=== PATIENT | male | born 1950 | race African-American/Black ===

== ENCOUNTER 2016-08-10 09:54 | Emergency (ER) | payer OTHER ==
[~2016-08-10] VITALS: Ht 167.6 cm; Wt 82.6 kg
[~2016-08-10 09:54] MED LIST: 2 INHALERS; ALBU8.5H6 IH; ALEN70TA3 PO; BUDE10.2 IH; CYCL5TAB PO; FINA5TAB4 PO; GABA300S PO; HYDR-2678 PO; HYDR-2679 PO; HYDR-2762 PO; PRED5POW8 MC; TAMS0.4C2 PO; TIOT18CA IH; VALA1000 PO; [UNRECOGNIZED DRUG - OTHER]
[2016-08-10 10:17] VITALS: BP 136/92
[2016-08-10] MEDS ORDERED: HYDR-971 PO (11:04)
--- NOTE | 2016-08-10 11:04 | PHYS DOC ---
Past Medical History Past Medical History: Arthritis, COPD, Diabetes-Type II, GI Bleed, Hepatitis, Liver Disease, Other Additional Past Medical Histor: peptic ulcer, Past Surgical History: Other Additional Past Surgical Histo: eye surgery, left lung repair surgery Alcohol Use: Occasionally Drug Use: Marijuana Adult General Chief Complaint Chief Complaint: PAIN CONTROL HPI HPI Patient is a 66 year old male with history of hypothyroidism, liver disease, GI bleed, COPD, arthritis, who presents today with exacerbation of chronic right wrist pain since yesterday. Patient rates the pain at 10 out of 10 and states the pain is worse when he moves his wrist. He states he has history of calcium buildup in the wrist. Patient states he follows up with orthopedic doctor at [facility] who is planning to do surgery on his wrist but they do not have a date yet. Patient denies any injury. He states he has tried taking Aleve with no relief. Review of Systems Review of Systems Constitutional: Denies fever or chills [] Eyes: Denies change in visual acuity, redness, or eye pain [] Musculoskeletal: Right wrist pain Integument: Denies rash or skin lesions [] Neurologic: Denies headache, focal weakness or sensory changes [] Endocrine: Denies polyuria or polydipsia [] Current Medications Current Medications Current Medications Medications (Trade) Dose Ordered Sig/[place] Start Time Stop Time Status Last Admin Dose Admin Acetaminophen/ Hydrocodone Bitart (Lortab 5/325) 2 tab 1X ONCE 08/10/16 11:00 08/10/16 11:01 UNV Allergies Allergies Allergies Coded Allergies Type Severity Reaction Last Updated Verified No Known Drug Allergies 08/10/16 No Physical Exam Physical Exam Constitutional: Well developed, well nourished, no acute distress, non-toxic appearance. [] HENT: Normocephalic, atraumatic, bilateral external ears normal, oropharynx moist, no oral exudates, nose normal. [] Skin: Warm, dry, no erythema, no rash. [] Back: No tenderness, no CVA tenderness. [] Extremities: Right wrist with no obvious deformity. Patient does the right upper extremity in a sling. Small amount of soft tissue swelling noted on the right dorsal wrist. Limited range of motion to the right wrist due to pain. No scaphoid pain or tenderness of the right wrist. Full range of motion to the right fingers. Adequate radial medial and ulnar sensation to the right hand. +2 right radial pulse. Cap refill less than 2 seconds the right upper extremity. Sensation intact to the right upper extremity. Neurologic: Alert and oriented X 3, normal motor function, normal sensory function, no focal deficits noted. [] Psychologic: Affect normal, judgement normal, mood normal. [] Current Patient Data Vital Signs Vital Signs Date Time Temp Pulse Resp B/P Pulse Ox O2 Delivery O2 Flow Rate FiO2 08/10/16 10:17 98.1 66 18 98 Room Air 98.1 EKG EKG [] Radiology/Procedures Radiology/Procedures [] Course & Med Decision Making Course & Med Decision Making Pertinent Labs and Imaging studies reviewed. (See chart for details) Patient is in the ED with exacerbation of right wrist pain. No known injury. He has an orthopedic doctor at that he follows up with. He took Aleve prior to coming to the ED. Given a prescription of [place] 8 tablet he has an appointment with his PCP in 3 days, I recommended he sees his PCP for this pain as well as his orthopedic doctor. Dragon Disclaimer Dragon Disclaimer This electronic medical record was generated, in whole or in part, using a voice recognition dictation system. Departure Departure Impression: Primary Impression: Chronic pain of right wrist Disposition: 01 HOME, SELF-CARE Condition: STABLE Referrals: KELSY PAUL DO (PCP) Follow-up with your primary care doctor as soon as possible as well as an orthopedic doctor Patient Instructions: Wrist Pain, Coio-go-Cvxx Additional Instructions: You were seen for chronic wrist pain. Please follow-up with your primary care doctor and orthopedic doctor as soon as possible. Scripts Hydrocodone/Apap 5-325 ([place] 5-325 Tablet)1 Each Tablet1-2 Tab PO Q4-6HRS #8 TAB Prov:NATALIASalimaSILKE APRN 08/10/16 SILKE GRAHAM APRN Aug 10, 2016 11:04
[2016-08-10] MEDS ORDERED: HYDROCODONE/APAP 5/325MG TABLET. PO ONE (11:45)
== END 2016-08-10 11:11 | disposition home or self-care (01) ==
LOC: ER 09:54
DX: G89.29 Other chronic pain (principal); M25.531 Pain in right wrist; E03.9 Hypothyroidism, unspecified; J44.9 Chronic obstructive pulmonary disease, unspecified; M19.90 Unspecified osteoarthritis, unspecified site; E11.9 Type 2 diabetes mellitus without complications; F12.10 Cannabis abuse, uncomplicated; Z86.19 Personal history of other infectious and parasitic diseases
CPT/HCPCS: 99283

== ENCOUNTER 2017-02-04 18:40 | Inpatient (IN) | payer OTHER ==
[~2017-02-04] VITALS: Ht 167.6 cm; Wt 80.7 kg
[~2017-02-04 18:40] MED LIST changes: +HYDR-971 PO
[2017-02-04] MEDS ORDERED: fentaNYL PF VIAL 100 MCG/2 ML VIAL IV ONE (19:00)
[2017-02-04] MEDS ORDERED: ONDANSETRON PF 4 MG/2 ML VIAL. IV ONE (19:00)
[2017-02-04] MEDS ORDERED: ACETAMINOPHEN 500 MG TABLET PO ONE (19:00)
[2017-02-04] MEDS ORDERED: IV NORMAL SALINE 1000ML BAG 1,000 ML IV ONE ×2 (19:00→20:15)
[2017-02-04] MEDS ORDERED: ASPIRIN ENTERIC COATED 325 MG TABLET.DR. PO ONE (19:00)
[2017-02-04 19:02] LABS: BASO % 1 % (0-3); EOS % 0 % (0-3); HEMATOCRIT 42.7 % (39.0-53.0); HEMOGLOBIN 14.1 g/dL (13.0-17.5); LYMPH # 0.6 x10^3/uL (1.0-4.8); LYMPH % 14 % (24-48); MEAN CORPUSCULAR HEMOGLOBIN 28 pg (25-35); MEAN CORPUSCULAR HGB CONC 33 g/dL (31-37); MEAN CORPUSCULAR VOLUME 86 fL (79-100); MONO % 11 % (0-9); NEUT % 74 % (31-73); PLATELET COUNT 114 x10^3/uL (140-400); RED BLOOD COUNT 4.98 x10^6/uL (4.30-5.70); RED CELL DISTRIBUTION WIDTH 16.3 % (11.5-14.5)
[2017-02-04 19:03] LABS: POTASSIUM ISTAT 3.8 mmol/L (3.5-5.0)
--- NOTE | 2017-02-04 19:21 | PHYS DOC ---
Past Medical History Past Medical History: Arthritis, COPD, Diabetes-Type II, GI Bleed, Hepatitis, Liver Disease, Other Additional Past Medical Histor: peptic ulcer, Past Surgical History: Other Additional Past Surgical Histo: eye surgery, left lung repair surgery Alcohol Use: Occasionally Drug Use: Marijuana Adult General Chief Complaint Chief Complaint: CHEST PAIN HPI HPI Patient is a 66 year old male presenting to the emergency department via EMS for evaluation of multiple complaints including fevers chills chest pain nausea vomiting diarrhea generalized malaise and fatigue. All the symptoms including chest pain have been going on for approximately one week. Patient says his pain is in his right lower ribs but he does not have pain to palpation on right upper quadrant of abdomen. Patient's temperature is 102 and slightly tachycardic. He was called as a code STEMI in the field however upon arrival EKG was reviewed which did not appear consistent with a STEMI. Patient appears uncomfortable but is nontoxic. Review of Systems Review of Systems Constitutional: + fever, chills [] Eyes: Denies change in visual acuity, redness, or eye pain [] HENT: Denies nasal congestion or sore throat [] Respiratory: Denies cough or shortness of breath [] Cardiovascular: No additional information not addressed in HPI [] GI: Denies abdominal pain, nausea, vomiting, bloody stools or diarrhea [] : Denies dysuria or hematuria [] Musculoskeletal: Denies back pain or joint pain [] Integument: Denies rash or skin lesions [] Neurologic: Denies headache, focal weakness or sensory changes [] Current Medications Current Medications Current Medications Medications (Trade) Dose Ordered Sig/[facility] Start Time Stop Time Status Last Admin Dose Admin Acetaminophen (Tylenol) 1,000 mg 1X ONCE 02/04/17 19:00 02/04/17 19:01 DC 02/04/17 19:08 1,000 MG Aspirin (Ecotrin) 325 mg 1X ONCE 02/04/17 19:00 02/04/17 19:01 DC Fentanyl Citrate (Fentanyl 2ml Vial) 75 mcg 1X ONCE 02/04/17 19:00 02/04/17 19:01 DC 02/04/17 19:08 75 MCG Ondansetron HCl (Zofran) 8 mg 1X ONCE 02/04/17 19:00 02/04/17 19:01 DC 02/04/17 19:08 8 MG Sodium Chloride 1,000 ml @ 1,000 mls/hr 1X ONCE 02/04/17 19:00 02/04/17 19:59 DC 02/04/17 19:08 1,000 MLS/HR Allergies Allergies Allergies Coded Allergies Type Severity Reaction Last Updated Verified No Known Drug Allergies 08/10/16 No Physical Exam Physical Exam Constitutional: Well developed, well nourished, no acute distress, non-toxic appearance. [] HENT: Normocephalic, atraumatic, bilateral external ears normal, oropharynx moist, no oral exudates, nose normal. [] Eyes: PERRLA, EOMI, conjunctiva normal, no discharge. [] Neck: Normal range of motion, no tenderness, supple, no stridor. [] Cardiovascular:Heart rate regular rhythm, no murmur [] Lungs & Thorax: Bilateral breath sounds clear to auscultation. Pain to palpation of right lower ribs. Abdomen: Bowel sounds normal, soft, no tenderness, no masses, no pulsatile masses. [] Skin: Warm, dry, no erythema, no rash. [] Back: No tenderness, no CVA tenderness. [] Extremities: No tenderness, no cyanosis, no clubbing, ROM intact, no edema. [] Neurologic: Alert and oriented X 3, normal motor function, normal sensory function, no focal deficits noted. [] Current Patient Data Vital Signs Vital Signs Date Time Temp Pulse Resp B/P (MAP) Pulse Ox O2 Delivery O2 Flow Rate FiO2 02/04/17 19:29 84 20 134/72 (92) 97 Nasal Cannula 2.0 02/04/17 18:40 102.9 102.9 Lab Values Laboratory Tests Test 02/04/17 18:45 02/04/17 18:48 02/04/17 19:02 White Blood Count 4.0 x10^3/uL (4.0-11.0) Red Blood Count 4.98 x10^6/uL (4.30-5.70) Hemoglobin 14.1 g/dL (13.0-17.5) Hematocrit 42.7 % (39.0-53.0) Mean Corpuscular Volume 86 fL (79-100) Mean Corpuscular Hemoglobin 28 pg (25-35) Mean Corpuscular Hemoglobin Concent 33 g/dL (31-37) Red Cell Distribution Width 16.3 % (11.5-14.5) H Platelet Count 114 x10^3/uL (140-400) L Neutrophils (%) (Auto) 74 % (31-73) H Lymphocytes (%) (Auto) 14 % (24-48) L Monocytes (%) (Auto) 11 % (0-9) H Eosinophils (%) (Auto) 0 % (0-3) Basophils (%) (Auto) 1 % (0-3) Neutrophils # (Auto) 2.9 x10^3uL (1.8-7.7) Lymphocytes # (Auto) 0.6 x10^3/uL (1.0-4.8) L Monocytes # (Auto) 0.4 x10^3/uL (0.0-1.1) Eosinophils # (Auto) 0.0 x10^3/uL (0.0-0.7) Basophils # (Auto) 0.0 x10^3/uL (0.0-0.2) Prothrombin Time 14.6 SEC (11.7-14.0) H Prothrombin Time INR 1.2 (0.8-1.1) H PTT 30 SEC (24-38) D-Dimer (Lisa) 5.69 ug/mlFEU (0.00-0.50) H Sodium Level 131 mmol/L (136-145) L Potassium Level 3.8 mmol/L (3.5-5.1) Chloride Level 99 mmol/L (98-107) Carbon Dioxide Level 23 mmol/L (21-32) Anion Gap 9 (6-14) 19 mmol/L (6-14) H Blood Urea Nitrogen 14 mg/dL (8-26) Creatinine 1.4 mg/dL (0.7-1.3) H Estimated GFR (Cockcroft-Gault) 61.7 BUN/Creatinine Ratio 10 (6-20) Glucose Level 166 mg/dL (70-99) H 165 mg/dL (70-99) H Lactic Acid Level 2.3 mmol/L (0.4-2.0) H Calcium Level 8.2 mg/dL (8.5-10.1) L Magnesium Level 2.2 mg/dL (1.8-2.4) Total Bilirubin 0.8 mg/dL (0.2-1.0) Aspartate Amino Transferase (AST) 53 U/L (15-37) H Alanine Aminotransferase (ALT) 41 U/L (16-63) Alkaline Phosphatase 55 U/L (46-116) Creatine Kinase 329 U/L (39-308) H Troponin I Quantitative < 0.017 ng/mL (0.000-0.055) WT-Dek-T-Type Natriuretic Peptide 52 pg/mL (0-124) Total Protein 7.3 g/dL (6.4-8.2) Albumin 3.2 g/dL (3.4-5.0) L Albumin/Globulin Ratio 0.8 (1.0-1.7) L Lipase 396 U/L (73-393) H Thyroid Stimulating Hormone (TSH) 2.512 uIU/mL (0.358-3.74) Ethyl Alcohol Level < 10 mg/dL (0-10) POC Hemoglobin 14.6 g/dL (14-18) POC Hematocrit 43 % (37-52) POC Sodium 134 mmol/L (135-145) L POC Potassium 3.8 mmol/L (3.5-5.0) POC Chloride 100 mmol/L (98-110) POC Total CO2 20 mmol/L (23-32) L POC Blood Urea Nitrogen 13 mg/dL (8-26) POC Creatinine 1.3 mg/dL (0.5-1.4) POC Ionized Calcium (Rick) 1.09 mmol/L (1.13-1.32) L POC Troponin I 0.02 ng/ml (<0.08) Influenza Type A Antigen Negative (NEGATIVE) Influenza Type B Antigen Negative (NEGATIVE) Laboratory Tests 02/04/17 18:45 Laboratory Tests 02/04/17 18:45 02/04/17 18:48 EKG EKG Sinus rhythm at 97 beats per minutes with leftward axis and apparent right bundle branch block with more widened QRS the prior EKG. No obvious STEMI morphology and normal T waves. Radiology/Procedures Radiology/Procedures [] Course & Med Decision Making Course & Med Decision Making Patient meets sepsis protocol with fever and tachycardia. No identified source of infection at this point however he still has a CT chest and abdomen pending. He received Rocephin in addition to IV fluids. Patient admits that he is feeling much better at this time. Cultures were drawn and lactic acid trend was ordered as well. He will be admitted in guarded condition to the hospitalist service. Dragon Disclaimer Dragon Disclaimer This electronic medical record was generated, in whole or in part, using a voice recognition dictation system. Departure Departure Impression: Primary Impression: Sepsis Additional Impressions: Lactic acid acidosis D-dimer, elevated Disposition: 09 ADMITTED INPATIENT Admitting Physician: Enmanuel Kenny Condition: GUARDED Referrals: KELSY PAUL DO (PCP) Problem Qualifiers Primary Impression: Sepsis Sepsis type: sepsis due to unspecified organism Qualified Codes: A41.9 - Sepsis, unspecified organism FABIOLA GRISSOM DO Feb 04, 2017 19:21
[2017-02-04 19:23] LABS: CALCIUM 8.2 mg/dL (8.5-10.1); CREATININE 1.4 mg/dL (0.7-1.3); GFR 61.7; POTASSIUM 3.8 mmol/L (3.5-5.1)
[2017-02-04 19:24] LABS: INR 1.2 (0.8-1.1); PROTHROMBIN TIME PATIENT 14.6 SEC (11.7-14.0)
[2017-02-04 19:31] LABS: OBC FLU VALID
[2017-02-04 19:36] LABS: ALBUMIN 3.2 g/dL (3.4-5.0); ALBUMIN/GLOBULIN RATIO 0.8 (1.0-1.7); MAGNESIUM 2.2 mg/dL (1.8-2.4); TOTAL BILIRUBIN 0.8 mg/dL (0.2-1.0); TOTAL PROTEIN 7.3 g/dL (6.4-8.2)
[2017-02-04] MEDS ORDERED: IOHEXOL 300 MG/ML 75 ML VIAL IV ONE (20:00)
[2017-02-04] MEDS ORDERED: CONTRAST GIVEN MC PRN (20:00)
[2017-02-04] MEDS ORDERED: fentaNYL PF VIAL 100 MCG/2 ML VIAL IV PRN (20:45)
[2017-02-04] MEDS ORDERED: ONDANSETRON PF 4 MG/2 ML VIAL. IV PRN (20:45)
--- NOTE | 2017-02-04 20:51 | RAD ---
CTA CHEST WITH AND WITHOUT CONTRAST CT STUDY OF THE ABDOMEN AND PELVIS WITH CONTRAST HISTORY: Shortness of air. Elevated d-dimer. Right upper quadrant abdominal pain. TECHNIQUE: Noncontrast axial localizer was performed. After IV infusion of 75 mL of Omnipaque 300, helical CT scanning of the chest was performed using the CT pulmonary embolism protocol. A coronal MIP reconstruction was generated. Subsequently, helical CT scanning of the abdomen and pelvis was performed. No GI contrast was administered. This may decrease the sensitivity to detect GI tract pathology. PQRS compliance Statement One or more of the following individualized dose reduction techniques were utilized for this study: 1. Automated exposure control 2. Adjustment of the mA and/or kV according to patient size 3. Use of iterative reconstruction technique COMPARISON: None available. CHEST CTA: No pulmonary embolism is evident. No thoracic aneurysmal dilatation is seen. Calcified atheromatous disease of the coronary arteries is seen. The heart size is normal and no pericardial effusion is seen. No enlarged thoracic lymphadenopathy is evident. Bilateral emphysema is seen. There is some mild interstitial pulmonary fibrosis within both lung bases. No lung consolidation or lung mass is seen. No pleural effusion or pneumothorax is seen. The proximal bronchial tree is patent. No osteolytic process is seen. IMPRESSION: No pulmonary embolism.. Bilateral emphysema. Mild interstitial pulmonary fibrosis within both lower lung zones. No lung consolidation or lung mass is seen. Calcified atheromatous disease of the coronary arteries. Normal heart size. ABDOMEN AND PELVIS CT: The liver and spleen and pancreas and gallbladder are normal. No extra hepatic biliary ductal dilatation is seen. No adrenal mass is evident. Both kidneys are normal without hydronephrosis or hydroureter. Urinary bladder wall is smooth. No focal aneurysmal dilatation of the abdominal aorta is seen. No enlarged abdominal or pelvic lymphadenopathy is seen. The terminal ileum is unremarkable. No obstructive bowel pattern is seen. The appendix is normal. A small hiatal hernia is evident. No free air or free fluid or mesenteric inflammatory change is seen. No osteolytic process is seen. IMPRESSION: No acute abnormality of the abdomen or pelvis is seen. Electronically signed by: Jose Juan Damon MD (02/04/2017 8:49 PM) [facility]
[2017-02-04] MEDS ORDERED: IV NORMAL SALINE 500ML BAG 500 ML IV ONE (21:00)
[2017-02-04] MEDS ORDERED: FOLI1TAB16 PO (21:57)
[2017-02-04] MEDS ORDERED: CYAN10005 PO (21:57)
[2017-02-04 22:43] LABS: BILIRUBIN,URINE NEGATIVE (NEG); GLUCOSE,URINE NEGATIVE (NEG); NITRITE,URINE NEGATIVE (NEG); PH,URINE 5.5; PROTEIN,URINE NEGATIVE (NEG-TRACE); UROBILINOGEN,URINE 0.2 mg/dL (0.2 mg/dL)
[2017-02-04 22:51] LABS: BACTERIA,URINE 0 /HPF (0-FEW); RBC,URINE 0 /HPF (0-2); SQUAMOUS EPITHELIAL CELL,UR OCC /LPF; WBC,URINE 0 /HPF (0-4)
[2017-02-04 22:56] LABS: BARBITURATES NEG (NEG); BENZODIAZEPINES NEG (NEG); CANNABINOIDS NEG (NEG); COCAINE NEG (NEG); METHADONE NEG (NEG); OPIATES NEG (NEG); PHENCYCLIDINE NEG (NEG)
[2017-02-04 23:57] VITALS: BP 105/61
[2017-02-05] MEDS: ACETAMINOPHEN 325 MG TABLET. PO PRN ×3 (03:15→20:21)
[2017-02-05 03:16] VITALS: BP 132/67
--- NOTE | 2017-02-05 05:06 | RAD ---
CT abdomen and pelvis with contrast: Reason for examination: Right upper quadrant abdominal pain with shortness of breath and elevated d-dimer. Helical images were obtained through the abdomen and pelvis with intravenous administration of 75 cc Omnipaque 300. Reconstruction was performed in sagittal and coronal planes. Exposure: One or more of the following individualized dose reduction techniques were utilized for this examination: 1. Automated exposure control 2. Adjustment of the mA and/or kV according to patient size 3. Use of iterative reconstruction technique. The lung bases are clear. The heart size is normal with no pericardial effusion seen. No abnormality seen at the liver, spleen, gallbladder, pancreas or adrenal glands. The abdominal aorta and inferior vena cava show no acute abnormalities but there is some arteriosclerotic vascular calcification in the aorta. The kidneys show no renal masses, renal calculi, hydronephrosis or evidence of obstructive uropathy. There is a small hiatal hernia. The small intestinal tract shows no abnormally dilated loops of bowel or thickened bowel hernandez. There is no evidence of diverticulosis or diverticulitis. The appendix is not definitely identified. No abnormality seen at the bladder, prostate gland or seminal vesicles. There are degenerative changes in the spine but no acute bony abnormality is seen. IMPRESSION: Small hiatal hernia. Degenerative changes in the lumbar spine. No other focal abnormalities evident in the abdomen or pelvis. Electronically signed by: Gaby Babcock MD (02/05/2017 5:01 AM) [facility]
[2017-02-05 06:30] LABS: BASO % 1 % (0-3); EOS % 0 % (0-3); LYMPH # 0.3 x10^3/uL (1.0-4.8); LYMPH % 5 % (24-48); MEAN CORPUSCULAR HEMOGLOBIN 28 pg (25-35); MEAN CORPUSCULAR HGB CONC 33 g/dL (31-37); MEAN CORPUSCULAR VOLUME 87 fL (79-100); MONO % 5 % (0-9); NEUT % 89 % (31-73); PLATELET COUNT 101 x10^3/uL (140-400); RED BLOOD COUNT 4.62 x10^6/uL (4.30-5.70); RED CELL DISTRIBUTION WIDTH 16.3 % (11.5-14.5); WHITE BLOOD COUNT 6.1 x10^3/uL (4.0-11.0)
[2017-02-05 06:44] LABS: CALCIUM 8.1 mg/dL (8.5-10.1); CREATININE 1.2 mg/dL (0.7-1.3); GFR 73.8; POTASSIUM 4.2 mmol/L (3.5-5.1)
[2017-02-05 06:48] VITALS: BP 116/66
--- NOTE | 2017-02-05 06:50 | EKG ---
[facility] [address] [place] [address] Test Date: 2017-02-04 Test Time: 18:39:12 Pat Name: TANYA JOHNSON Department: Room: [facility] 1 Gender: M Education Rn: : 1950 Requested By: FABIOLA GRISSOM Order Number: [id number] Reading MD: Scott Desai Measurements Intervals [place] Rate: 97 P: 52 SD: 136 QRS: -83 QRSD: 124 T: 58 QT: 348 QTc: 446 Interpretive Statements SINUS RHYTHM PAC RBBB LAFB Electronically Signed On 02-25-2017 9:14:53 CDT by Scott Desai
[2017-02-05 07:43] LABS: PLT ESTIMATE DECREASED (ADEQUATE)
--- NOTE | 2017-02-05 08:21 | RAD ---
PORTABLE CHEST 1V Clinical Indication: CP Comparison: Chest radiograph dated 11/11/2014 Findings: Normal lung volume. No focal consolidations. Stable pulmonary vasculature. No pleural effusion or pneumothorax. The cardiomediastinal silhouette is normal. Stable tortuous thoracic aorta. No acute osseous abnormality. Stable moderate right and mild left glenohumeral joint arthrosis. IMPRESSION: No acute cardiopulmonary process.
[2017-02-05] MEDS ORDERED: INFLUENZA VAX SCREEN BY RX. MC ONE (09:00)
[2017-02-05] MEDS ORDERED: FLU VACC QS2017-18 (36MOS+)/PF 0.5 ML SYRINGE. VAX IM ONE (09:00)
[2017-02-05 11:04] VITALS: BP 115/68
--- NOTE | 2017-02-05 13:30 | HP ---
ADMIT DATE: 02/05/17 CHIEF COMPLAINT: Right upper quadrant pain, shortness of breath. HISTORY OF PRESENT ILLNESS: The patient is a 66-year-old -Chinese gentleman with multiple medical issues including hepatitis, COPD, diabetes who presented to the Emergency Room with sudden onset abdominal pain, so severe in his right upper quadrant that he had difficulty breathing. He also complained of fevers, chills, mild nausea without any vomiting and general malaise and fatigue. All in all, symptoms actually have been going on for about a week. In the Emergency Room, he was found with a fever of 102, tachycardia, however, his CTA was negative for pulmonary embolism, CT of the abdomen and pelvis likewise were negative for any findings, especially in the right upper quadrant. PAST MEDICAL HISTORY: COPD, hepatitis, GI bleed, diabetes mellitus, osteoarthritis. PAST SURGICAL HISTORY: He is status post left lung surgery. FAMILY HISTORY: Positive for diabetes, hypertension in siblings and mother. SOCIAL HISTORY: He lives by himself, has a daily caregiver for the past 17 years. Smokes tobacco and marijuana regularly. Drinks Coors Light and occasionally sip of hard liquor. ALLERGIES: No known drug allergies. MEDICATIONS: MAR reconciled with home medications. REVIEW OF SYSTEMS: His pain currently has resolved. He denies any ongoing shortness of breath. Feels a little better overall, although not quite back to normal. Rest of organ system review does not yield any findings. PHYSICAL EXAMINATION: VITAL SIGNS: Currently show blood pressure of 115/68, heart rate of 68, respiratory rate at 20. He is afebrile. GENERAL: This is a well-nourished 66-year-old -Chinese gentleman, alert and oriented, in no acute distress. HEENT: Shows no scleral icterus. Oral mucosa is dry. Dentition is poor. NECK: Supple, without any lymphadenopathy. LUNGS: Clear. HEART: Has regular rate and rhythm without any murmurs. ABDOMEN: Has positive bowel sounds, soft, nontender. EXTREMITIES: Show no edema, no clubbing, no cyanosis. SKIN: Warm, soft and dry without any rash. LABORATORY DATA: CBC with a WBC of 6.1, hemoglobin 13.0, platelets of 101, which is about his baseline. Differential with 85% segmented neutrophils and 8% bands. Chemistries with a BUN and creatinine of 13 and 1.2, normal electrolytes, glucose at 113. LFTs obtained in the Emergency Room show an AST of 53, rest was normal. CK 329. Lactate at 2.3. Initial sodium of 131, now corrected to 136. IMAGING: CTA without any sign of pulmonary embolism. Noted are bilateral emphysematous changes with mild interstitial pulmonary fibrosis within both lower lung zones. No lung consolidation or lung mass is seen. CT abdomen and pelvis shows small hiatal hernia, degenerative changes in the lumbar spine, no focal abnormalities evident in the abdomen or pelvis. ASSESSMENT AND PLAN: The patient is a 66-year-old gentleman presenting with suspicion for sepsis. Symptoms have mainly resolved. Blood cultures are pending at this time. He has been started empirically on ceftriaxone. We will continue for now, monitor his symptoms. His vital signs currently are completely stable including pulse rate and blood pressure. We will continue to monitor. Home medications will be continued. He is a diabetic who is diet controlled. We will obtain hemoglobin A1c and insulin sliding scale as needed. He does have a history of COPD. We will continue his inhalers as needed as well as supplemental O2. JESUSITA BARBER MD DR: DAYA/terri JOB#: [id number] / [id number]
[2017-02-05 14:53] VITALS: BP 105/60
[2017-02-05 19:20] VITALS: BP 142/75
[2017-02-05 23:25] VITALS: BP 114/57
[2017-02-06 03:30] VITALS: BP 108/47
[2017-02-06] MEDS: ACETAMINOPHEN 325 MG TABLET. PO PRN (05:06)
[2017-02-06 06:39] LABS: BASO % 1 % (0-3); EOS % 1 % (0-3); HEMATOCRIT 39.1 % (39.0-53.0); HEMOGLOBIN 12.7 g/dL (13.0-17.5); LYMPH # 0.5 x10^3/uL (1.0-4.8); LYMPH % 18 % (24-48); MEAN CORPUSCULAR HEMOGLOBIN 28 pg (25-35); MEAN CORPUSCULAR HGB CONC 33 g/dL (31-37); MEAN CORPUSCULAR VOLUME 86 fL (79-100); MONO % 10 % (0-9); NEUT % 71 % (31-73); PLATELET COUNT 97 x10^3/uL (140-400); RED BLOOD COUNT 4.55 x10^6/uL (4.30-5.70); WHITE BLOOD COUNT 2.6 x10^3/uL (4.0-11.0)
[2017-02-06 07:00] VITALS: BP 103/60
[2017-02-06 07:10] LABS: ALBUMIN 2.9 g/dL (3.4-5.0); ALBUMIN/GLOBULIN RATIO 0.8 (1.0-1.7); CALCIUM 8.3 mg/dL (8.5-10.1); POTASSIUM 3.8 mmol/L (3.5-5.1); TOTAL BILIRUBIN 0.5 mg/dL (0.2-1.0); TOTAL PROTEIN 6.5 g/dL (6.4-8.2)
--- NOTE | 2017-02-06 09:55 | PDOC ---
PROGRESS NOTES Chief Complaint Chief Complaint ASSESSMENT AND PLAN: 1. ?sepsis: fevers persisting, but exam nonfocal; VSS. blood cult NGTD. empiric ceftriax 2. Leukopenia with severe lymphopenia: poss 2/2 viral syndrome. monitor closely 3. DM2: diet controlled at home, well controlled on ISS. HgbA1c pending 4. COPD: nebs PRN, suppl O2 5. Hand pain: trial gabapentin History of Present Illness History of Present Illness main c/o is pain in hands, tim R, chronic since surgeries. PCP stopped decades- long PO narcotics last month Vitals Vitals Vital Signs Date Time Temp Pulse Resp B/P (MAP) Pulse Ox O2 Delivery O2 Flow Rate FiO2 02/06/17 08:00 Nasal Cannula 2.0 02/06/17 07:00 97.8 79 18 103/60 (74) 98 97.8 Physical Exam General: Alert, Oriented X3, Cooperative, No acute distress Heart: Regular rate Lungs: Clear Abdomen: Normal bowel sounds, No tenderness Extremities: No clubbing, Other (pain in dorsi of hands/wrists w/o decrease in ROM) Skin: No rashes Labs LABS Laboratory Tests Test 02/06/17 06:05 White Blood Count 2.6 x10^3/uL (4.0-11.0) Red Blood Count 4.55 x10^6/uL (4.30-5.70) Hemoglobin 12.7 g/dL (13.0-17.5) Hematocrit 39.1 % (39.0-53.0) Mean Corpuscular Volume 86 fL (79-100) Mean Corpuscular Hemoglobin 28 pg (25-35) Mean Corpuscular Hemoglobin Concent 33 g/dL (31-37) Red Cell Distribution Width 16.0 % (11.5-14.5) Platelet Count 97 x10^3/uL (140-400) Neutrophils (%) (Auto) 71 % (31-73) Lymphocytes (%) (Auto) 18 % (24-48) Monocytes (%) (Auto) 10 % (0-9) Eosinophils (%) (Auto) 1 % (0-3) Basophils (%) (Auto) 1 % (0-3) Neutrophils # (Auto) 1.8 x10^3uL (1.8-7.7) Lymphocytes # (Auto) 0.5 x10^3/uL (1.0-4.8) Monocytes # (Auto) 0.3 x10^3/uL (0.0-1.1) Eosinophils # (Auto) 0.0 x10^3/uL (0.0-0.7) Basophils # (Auto) 0.0 x10^3/uL (0.0-0.2) Sodium Level 138 mmol/L (136-145) Potassium Level 3.8 mmol/L (3.5-5.1) Chloride Level 104 mmol/L (98-107) Carbon Dioxide Level 25 mmol/L (21-32) Anion Gap 9 (6-14) Blood Urea Nitrogen 10 mg/dL (8-26) Creatinine 1.0 mg/dL (0.7-1.3) Estimated GFR (Cockcroft-Gault) 91.0 BUN/Creatinine Ratio 10 (6-20) Glucose Level 102 mg/dL (70-99) Calcium Level 8.3 mg/dL (8.5-10.1) Total Bilirubin 0.5 mg/dL (0.2-1.0) Aspartate Amino Transf (AST/SGOT) 53 U/L (15-37) Alanine Aminotransferase (ALT/SGPT) 35 U/L (16-63) Alkaline Phosphatase 50 U/L (46-116) Creatine Kinase 385 U/L (39-308) Total Protein 6.5 g/dL (6.4-8.2) Albumin 2.9 g/dL (3.4-5.0) Albumin/Globulin Ratio 0.8 (1.0-1.7) JESUSITA BARBER MD Feb 06, 2017 09:55
[2017-02-06] MEDS ORDERED: GABAPENTIN 300 MG CAPSULE. PO SCH (10:00)
[2017-02-06] MEDS ORDERED: CYCLOBENZAPRINE 10 MG TABLET. PO PRN (10:15)
[2017-02-06] MEDS: TAMSULOSIN 0.4 MG CAP.ER.24H. PO SCH (10:44)
[2017-02-06] MEDS: CYANOCOBALAMIN (VITAMIN B-12) 1,000 MCG TABLET. PO SCH (10:44)
[2017-02-06] MEDS: FOLIC ACID 1 MG TABLET. PO SCH (10:44)
[2017-02-06] MEDS: FINASTERIDE 5 MG TABLET. PO SCH (10:45)
[2017-02-06] MEDS: HYDROcodone/APAP 7.5/325MG 1 TAB TABLET PO PRN ×2 (10:46→20:41)
[2017-02-06 10:55] VITALS: BP 99/53
[2017-02-06] MEDS: IPRATRPIUM/ALBUTEROL 0.5/2.5MG 3 ML NEBU. NEB SCH ×3 (11:15→19:32)
[2017-02-06] MEDS: BUDESONIDE 0.5 MG/2 ML NEBU. NEB SCH ×2 (11:15→19:32)
[2017-02-06] MEDS ORDERED: ALBUTEROL SULFATE 2.5 MG/3 ML NEBU. NEB SCH (12:00)
[2017-02-06] MEDS ORDERED: ALBUTEROL SULFATE 8GM INHALER. IH SCH (13:00)
[2017-02-06] MEDS: GABAPENTIN 100 MG CAPSULE. PO SCH ×2 (14:00→20:40)
[2017-02-06 15:26] VITALS: BP 123/63
[2017-02-06 19:24] VITALS: BP 138/73
[2017-02-06] MEDS ORDERED: NON FORMULARY ITEM (Budesonide/Formoterol Fumarate (Symbicort 160-4.5 Mcg Inhaler) 10.2 GM IH SCH (21:00)
[2017-02-06 22:22] VITALS: BP 116/62
[2017-02-07] MEDS: HYDROcodone/APAP 7.5/325MG 1 TAB TABLET PO PRN ×3 (02:50→18:32)
[2017-02-07 02:51] VITALS: BP 126/68
[2017-02-07 07:00] VITALS: BP 123/76
[2017-02-07] MEDS: BUDESONIDE 0.5 MG/2 ML NEBU. NEB SCH ×2 (07:55→20:11)
[2017-02-07] MEDS: IPRATRPIUM/ALBUTEROL 0.5/2.5MG 3 ML NEBU. NEB SCH ×4 (07:55→20:11)
[2017-02-07] MEDS: GABAPENTIN 100 MG CAPSULE. PO SCH ×3 (08:49→20:49)
[2017-02-07] MEDS: TAMSULOSIN 0.4 MG CAP.ER.24H. PO SCH (08:49)
[2017-02-07] MEDS: FOLIC ACID 1 MG TABLET. PO SCH (08:49)
[2017-02-07] MEDS: FINASTERIDE 5 MG TABLET. PO SCH (08:49)
[2017-02-07] MEDS: CYANOCOBALAMIN (VITAMIN B-12) 1,000 MCG TABLET. PO SCH (08:49)
[2017-02-07] MEDS ORDERED: NON FORMULARY ITEM (Tiotropium Bromide (Spiriva) 1 CAP) IH SCH (09:00)
[2017-02-07 11:00] VITALS: BP 108/67
[2017-02-07 15:12] VITALS: BP 98/57
[2017-02-07 19:21] VITALS: BP 130/66
[2017-02-07 23:43] VITALS: BP 127/79
[2017-02-08 03:00] VITALS: BP 126/63
[2017-02-08 07:00] VITALS: BP 113/70
[2017-02-08] MEDS: CYANOCOBALAMIN (VITAMIN B-12) 1,000 MCG TABLET. PO SCH (07:34)
[2017-02-08] MEDS: GABAPENTIN 100 MG CAPSULE. PO SCH ×3 (07:34→21:13)
[2017-02-08] MEDS: FINASTERIDE 5 MG TABLET. PO SCH (07:34)
[2017-02-08] MEDS: FOLIC ACID 1 MG TABLET. PO SCH (07:35)
[2017-02-08] MEDS: TAMSULOSIN 0.4 MG CAP.ER.24H. PO SCH (07:35)
[2017-02-08] MEDS: HYDROcodone/APAP 7.5/325MG 1 TAB TABLET PO PRN ×2 (07:35→17:32)
[2017-02-08] MEDS: BUDESONIDE 0.5 MG/2 ML NEBU. NEB SCH ×2 (08:34→19:49)
[2017-02-08] MEDS: IPRATRPIUM/ALBUTEROL 0.5/2.5MG 3 ML NEBU. NEB SCH ×4 (08:34→19:49)
--- NOTE | 2017-02-08 10:06 | PDOC ---
PROGRESS NOTES Chief Complaint Chief Complaint ASSESSMENT AND PLAN: 1. ?sepsis: fevers resolved, exam nonfocal; VSS. blood cult NGTD. empiric ceftriax. 2. Leukopenia with severe lymphopenia: poss 2/2 viral syndrome. monitor closely 3. DM2: diet controlled at home, well controlled on ISS. HgbA1c pending 4. COPD: nebs PRN, suppl O2 5. Hand pain: trial gabapentin 6. RUQ pain: improved. US RUQ pending History of Present Illness History of Present Illness feels much improved today. abd pain almost resolved. no fevers or chills Vitals Vitals Vital Signs Date Time Temp Pulse Resp B/P (MAP) Pulse Ox O2 Delivery O2 Flow Rate FiO2 02/08/17 08:50 Room Air 02/08/17 08:37 100 2.0 02/08/17 07:00 97.9 62 16 113/70 (84) 97.9 Physical Exam General: Alert, Oriented X3, Cooperative, No acute distress Heart: Regular rate Lungs: Clear Abdomen: Normal bowel sounds, No tenderness Extremities: No clubbing, Other (pain in dorsi of hands/wrists w/o decrease in ROM) Skin: No rashes Labs LABS Laboratory Tests Test 02/07/17 11:46 02/07/17 16:49 Glucose (Fingerstick) 165 mg/dL (70-99) 136 mg/dL (70-99) JESUSITA BARBER MD Feb 08, 2017 10:06
[2017-02-08 10:55] LABS: BASO % 1 % (0-3); EOS % 7 % (0-3); HEMATOCRIT 40.2 % (39.0-53.0); LYMPH # 1.1 x10^3/uL (1.0-4.8); LYMPH % 31 % (24-48); MEAN CORPUSCULAR HEMOGLOBIN 28 pg (25-35); MEAN CORPUSCULAR HGB CONC 32 g/dL (31-37); MEAN CORPUSCULAR VOLUME 87 fL (79-100); MONO % 8 % (0-9); NEUT % 53 % (31-73); PLATELET COUNT 133 x10^3/uL (140-400); RED BLOOD COUNT 4.64 x10^6/uL (4.30-5.70); RED CELL DISTRIBUTION WIDTH 16.2 % (11.5-14.5); WHITE BLOOD COUNT 3.5 x10^3/uL (4.0-11.0)
[2017-02-08 11:00] VITALS: BP 117/62
[2017-02-08 11:04] LABS: POTASSIUM 3.9 mmol/L (3.5-5.1)
--- NOTE | 2017-02-08 14:38 | RAD ---
Indication right upper quadrant pain. Grayscale imaging was performed. Examination was targeted to the right upper quadrant. Note is made of a CT examination of the abdomen and pelvis 4 days ago and a prior limited ultrasound examination 04/05/2014. There is increased attenuation of the ultrasound beam by the liver compatible with fatty infiltration. A focal mass lesion is not seen in the visualized liver. The visualized inferior vena cava appears normal. The gallbladder appears unremarkable. The common bile duct diameter of approximately 6 mm is within normal limits. The right kidney appears normal. The visualized pancreas appeared unremarkable although the distal body and tail were partially obscured. IMPRESSION: Fatty infiltration of the liver. No additional finding seen in the right upper quadrant
[2017-02-08 15:00] VITALS: BP 125/69
[2017-02-08] MEDS ORDERED: GABA-585 PO (16:23)
--- NOTE | 2017-02-08 16:41 | DS ---
DATE OF DISCHARGE: 02/08/2017 CHIEF COMPLAINT: Fevers, chills, malaise. HOSPITAL COURSE: The patient is a 66-year-old gentleman who presented with diffuse symptoms suspicious for infection, question sepsis. He was therefore admitted and started on empiric antibiotics after x-ray, urine and blood cultures were obtained. None of these actually showed any focal infection. A CT was likewise nondiagnostic. He, however, improved after experiencing a brief bout of leukopenia with lymphopenia. He was there suspected of having a viral syndrome. He recovered spontaneously. A couple of days into his hospitalization, he started experiencing right upper quadrant pain, which prompted right upper quadrant ultrasound, which did not show any acute pathology, only fatty liver. The patient was therefore deemed stable on the for discharge to home. The patient complained of hand pain, especially in the dorsi of both hands, possibly related to a distant history of surgery. He was therefore started on gabapentin for trial and seemed to be tolerating medication well. Further increase in doses may be required on outpatient basis. PHYSICAL EXAMINATION: VITAL SIGNS: Blood pressure of 113/70, heart rate of 62, respiratory rate of 16. He is afebrile. GENERAL: This is a well-nourished 66-year-old gentleman, alert and oriented, in no acute distress. LUNGS: Clear. HEART: Regular rate and rhythm. ABDOMEN: Has positive bowel sounds, soft, nontender. EXTREMITIES: Show no edema. DISCHARGE DATE: 02/08/2017 DISCHARGE DIAGNOSIS: Viral syndrome. DISCHARGE DISPOSITION: To home. DISCHARGE CONDITION: Improved. DISCHARGE MEDICATIONS: Please refer to MAR. DISCHARGE INSTRUCTIONS: The patient will follow up with PCP. JESUSITA BARBER MD DR: UR/nts JOB#: [id number] / [id number] KELSY Bhagat
[2017-02-08 19:25] VITALS: BP 134/69
[2017-02-08 23:30] VITALS: BP 142/67
[2017-02-09 03:35] VITALS: BP 119/62
[2017-02-09 07:20] VITALS: BP 109/62
[2017-02-09] MEDS: FINASTERIDE 5 MG TABLET. PO SCH (08:05)
[2017-02-09] MEDS: IPRATRPIUM/ALBUTEROL 0.5/2.5MG 3 ML NEBU. NEB SCH (08:05)
[2017-02-09] MEDS: BUDESONIDE 0.5 MG/2 ML NEBU. NEB SCH (08:05)
[2017-02-09] MEDS: FOLIC ACID 1 MG TABLET. PO SCH (08:06)
[2017-02-09] MEDS: HYDROcodone/APAP 7.5/325MG 1 TAB TABLET PO PRN (08:06)
[2017-02-09] MEDS: GABAPENTIN 100 MG CAPSULE. PO SCH (08:06)
[2017-02-09] MEDS: CYANOCOBALAMIN (VITAMIN B-12) 1,000 MCG TABLET. PO SCH (08:06)
[2017-02-09] MEDS: TAMSULOSIN 0.4 MG CAP.ER.24H. PO SCH (08:06)
== END 2017-02-09 09:45 | disposition home or self-care (01) | DRG 871 ==
LOC: ER 18:40 → 6 SOUTH 19:34
PROVIDERS: ADMIT Internal Medicine; ATTEND Internal Medicine
DX: A41.89 Other specified sepsis (principal); N17.0 Acute kidney failure with tubular necrosis; K76.0 Fatty (change of) liver, not elsewhere classified; D72.810 Lymphocytopenia; E11.9 Type 2 diabetes mellitus without complications; J44.9 Chronic obstructive pulmonary disease, unspecified; F12.90 Cannabis use, unspecified, uncomplicated; B34.9 Viral infection, unspecified; Z82.49 Family history of ischemic heart disease and other diseases of the circulatory system; Z87.11 Personal history of peptic ulcer disease; Z83.3 Family history of diabetes mellitus
CPT/HCPCS: 36415; 71010; 71275; 74177; 76705; 80047; 80048; 80053; 80307; 81001; 82550; 82962; 83036; 83605; 83690; 83735; 83880; 84443; 84484; 85007; 85025; 85379; 85610; 85730; 87040; 87804; 90686; 93005; 94250; 94640; 94760; 96374; 96375; G0480; J0696; J2405; J3010; J7030; J7040; J7620; J7626; Q9967; 99285-25; G0479

== ENCOUNTER 2017-02-21 10:40 | Emergency (ER) | payer OTHER ==
[~2017-02-21] VITALS: Ht 167.6 cm; Wt 82.6 kg
[~2017-02-21 10:40] MED LIST changes: +CYAN10005 PO; +FOLI1TAB16 PO; +GABA-585 PO
[2017-02-21 11:08] VITALS: BP 126/79
[2017-02-21] MEDS ORDERED: CYCLOBENZAPRINE 10 MG TABLET. PO ONE (11:15)
[2017-02-21] MEDS ORDERED: HYDROcodone/APAP 5/325MG 1 TAB TABLET PO ONE (11:15)
--- NOTE | 2017-02-21 11:47 | RAD ---
AP pelvis to include AP and lateral right hip radiographs 02/21/2017 Clinical history: Right lateral and posterior hip pain for 4 days. An AP digital radiograph of the pelvis was obtained. AP and lateral radiographs of the right hip were obtained. No pelvic bone fracture is seen. Both hips are intact. Specifically no fracture or dislocation of the right hip is seen. Calcifications are seen within the pelvis consistent with phleboliths. Moderate degenerative changes are seen involving the mid and lower lobe lumbar spine. Mild degenerative changes are seen involving both hips. Atherosclerotic calcification of the abdominal aorta and its branches is noted. Impression: Degenerative changes are seen as outlined above. No acute osseous abnormality is noted.
--- NOTE | 2017-02-21 11:53 | RAD ---
Three-view lumbar spine radiographs 02/21/2017 Clinical history: Low back pain for 4 days. AP and 2 lateral digital radiographs of the lumbar spine were obtained. Minimal S shaped curvature of the thoracolumbar spine is seen. Degenerative changes are seen involving the lower thoracic and throughout the lumbar disc spaces consisting of varying degrees of disc space narrowing, vertebral endplate sclerosis and mild to moderate anterolateral vertebral body osteophyte formation. No fracture or subluxation of the lumbar vertebrae seen. Degenerative changes are seen involving the facet joints of the mid and lower lumbar spine. Atherosclerotic calcification of the abdominal aorta and its branches is noted. Impression: Degenerative changes are seen involving the lumbar spine as outlined above. No acute osseous abnormality is seen.
[2017-02-21] MEDS ORDERED: CYCL10TA2 PO (12:19)
[2017-02-21] MEDS ORDERED: HYDR-79 PO (12:19)
--- NOTE | 2017-02-21 12:19 | PHYS DOC ---
Past Medical History Past Medical History: Arthritis, COPD, Diabetes-Type II, GI Bleed, Hepatitis, Liver Disease, Other Additional Past Medical Histor: peptic ulcer, Past Surgical History: Other Additional Past Surgical Histo: eye surgery, left lung repair surgery Alcohol Use: Occasionally Drug Use: Marijuana Adult General Chief Complaint Chief Complaint: HIP PAIN HPI HPI Patient is a 66 year old male with history of arthritis, COPD, diabetes type 2 , GI bleed, who presents today with moderate right low back pain radiating into the right hip into the right lower extremity that began 3 days ago. She denies any trauma. Denies any numbness or tingling to bilateral lower extremities, denies any loss of bladder function. He states he has history of back pain with sciatica and follows up with his PCP at [facility], [place]. Review of Systems Review of Systems Constitutional: Denies fever or chills [] GI: Denies abdominal pain, nausea, vomiting, bloody stools or diarrhea [] : Denies dysuria or hematuria [] Musculoskeletal: Right low back pain radiating into the right hip into the right lower extremity Integument: Denies rash or skin lesions [] Neurologic: Denies headache, focal weakness or sensory changes [] Current Medications Current Medications Current Medications Medications (Trade) Dose Ordered Sig/Omaira Start Time Stop Time Status Last Admin Dose Admin Acetaminophen/ Hydrocodone Bitart (Lortab 5/325) 2 tab 1X ONCE 02/21/17 11:15 02/21/17 11:16 DC 02/21/17 11:46 2 TAB Cyclobenzaprine HCl (Flexeril) 10 mg 1X ONCE 02/21/17 11:15 02/21/17 11:16 DC 02/21/17 11:45 10 MG Allergies Allergies Allergies Coded Allergies Type Severity Reaction Last Updated Verified No Known Drug Allergies 08/10/16 No Physical Exam Physical Exam Constitutional: Well developed, well nourished, no acute distress, non-toxic appearance. [] Abdomen: Bowel sounds normal, soft, no tenderness, no masses, no pulsatile masses. [] Skin: Warm, dry, no erythema, no rash. [] Back: Diffuse paraspinal muscle tenderness to the right lumbar spine worse on the right SI joint, no midline lumbar spine tenderness, no CVA tenderness. Positive right leg straight raise. Extremities: Tenderness diffusely on the right lateral hip joint. Very limited range of motion to the right lower extremity due to pain. Neurologic: Alert and oriented X 3, normal motor function, normal sensory function, no focal deficits noted. [] Psychologic: Affect normal, judgement normal, mood normal. [] Current Patient Data Vital Signs Vital Signs Date Time Temp Pulse Resp B/P (MAP) Pulse Ox O2 Delivery O2 Flow Rate FiO2 02/21/17 11:46 20 02/21/17 11:08 98.1 80 126/79 (95) 95 Room Air 98.1 EKG EKG [] Radiology/Procedures Radiology/Procedures []PROCEDURE: LUMBAR SPINE 2-3V Three-view lumbar spine radiographs 02/21/2017 Clinical history: Low back pain for 4 days. AP and 2 lateral digital radiographs of the lumbar spine were obtained. Minimal S shaped curvature of the thoracolumbar spine is seen. Degenerative changes are seen involving the lower thoracic and throughout the lumbar disc spaces consisting of varying degrees of disc space narrowing, vertebral endplate sclerosis and mild to moderate anterolateral vertebral body osteophyte formation. No fracture or subluxation of the lumbar vertebrae seen. Degenerative changes are seen involving the facet joints of the mid and lower lumbar spine. Atherosclerotic calcification of the abdominal aorta and its branches is noted. Impression: Degenerative changes are seen involving the lumbar spine as outlined above. No acute osseous abnormality is seen. DICTATED and SIGNED BY: JAVIER NICHOLS MD DATE: 02/21/17 1140 CC: SILKE GRAHAM APRN; KELSY PAUL DO ~ PROCEDURE: HIP RIGHT 2V WITH PELVIS AP pelvis to include AP and lateral right hip radiographs 02/21/2017 Clinical history: Right lateral and posterior hip pain for 4 days. An AP digital radiograph of the pelvis was obtained. AP and lateral radiographs of the right hip were obtained. No pelvic bone fracture is seen. Both hips are intact. Specifically no fracture or dislocation of the right hip is seen. Calcifications are seen within the pelvis consistent with phleboliths. Moderate degenerative changes are seen involving the mid and lower lobe lumbar spine. Mild degenerative changes are seen involving both hips. Atherosclerotic calcification of the abdominal aorta and its branches is noted. Impression: Degenerative changes are seen as outlined above. No acute osseous abnormality is noted. DICTATED and SIGNED BY: JAVIER NICHOLS MD DATE: 02/21/17 1131 CC: SILKE GRAHAM APRN; KELSY PAUL DO ~ Course & Med Decision Making Course & Med Decision Making Pertinent Labs and Imaging studies reviewed. (See chart for details) This is a 66-year-old male patient presenting to the ED today with right low back pain radiating into the right hip. Patient has history of sciatica. We did x-rays of his lumbar spine and right hip which were negative for any acute findings. Patient was noted to have arthritis. He was discharged with instructions to follow-up with his own PCP. Dragon Disclaimer Dragon Disclaimer This electronic medical record was generated, in whole or in part, using a voice recognition dictation system. Departure Departure Impression: Primary Impression: Arthritis of right hip Additional Impressions: Arthritis, lumbar spine Sciatic pain Back pain Disposition: HOME, SELF-CARE Condition: STABLE Referrals: KELSY PAUL DO (PCP) Follow-up with your doctor in the course of this week Patient Instructions: Arthritis, Degenerative-Brief, Back Pain, Adult, Sciatica Additional Instructions: You were seen for arthritis of your back and hip. You also have sciatic pain. Follow-up with your doctor at [facility], [place] in the course of this week. Scripts Hydrocodone Bit/Acetaminophen (HYDROCODONE-APAP 7.5-325 ) 1 Each Tablet 1 TAB PO PRN Q6HRS Y for PAIN, #10 TAB 0 Refills Prov: SILKE GRAHAM APRN 02/21/17 Cyclobenzaprine Hcl (CYCLOBENZAPRINE HCL) 10 Mg Tablet 1 TAB PO TID, #30 TAB Prov: SILKE GRAHAM STEAM [employer]TER 02/21/17 Hydrocodone/Ibuprofen (HYDROCODONE-IBUPROFEN 7.5-200 ) 1 Each Tablet 1 TAB PO PRN Q6HRS Y for PAIN, #14 TAB 0 Refills Prov: SILKE GRAHAM APRN 02/21/17 Problem Qualifiers Additional Impressions: Sciatic pain Laterality: right Qualified Codes: M54.31 - Sciatica, right side Back pain Back pain location: low back pain Chronicity: chronic Back pain laterality : right Sciatica presence: with sciatica Sciatica laterality: sciatica of right side Qualified Codes: M54.41 - Lumbago with sciatica, right side; G89.29 - Other chronic pain SILKE GRAHAM APRN Feb 21, 2017 12:19
[2017-02-21] MEDS ORDERED: HYDR-2762 PO (12:20)
== END 2017-02-21 12:34 | disposition home or self-care (01) ==
LOC: ER 10:40
DX: M46.86 Other specified inflammatory spondylopathies, lumbar region (principal); M16.11 Unilateral primary osteoarthritis, right hip; E11.9 Type 2 diabetes mellitus without complications; J44.9 Chronic obstructive pulmonary disease, unspecified; Z87.11 Personal history of peptic ulcer disease
CPT/HCPCS: 72100; 73502; 99284

== ENCOUNTER 2017-04-12 05:45 | Emergency (ER) | payer OTHER ==
[~2017-04-12] VITALS: Ht 167.6 cm; Wt 84.4 kg
[~2017-04-12 05:45] MED LIST changes: +CYCL10TA2 PO; +HYDR-79 PO
[2017-04-12 05:55] VITALS: BP 148/70
--- NOTE | 2017-04-12 06:43 | RAD ---
Right lower extremity venous duplex study 04/12/2017 Clinical History: Right leg swelling. Technique: Using a combination of real time ultrasound imaging and color-flow and pulse Doppler imaging techniques along with graded compression and augmentation, duplex evaluation of the deep venous system of the right lower extremity was performed. Multiple images were obtained. Findings: There is no sonographic evidence of deep venous thrombosis involving the visualized deep venous structures of right lower extremity. 3.5 cm popliteal cyst is seen posterior to the right knee. Impression: 3.5 cm popliteal cyst is seen posterior to the right knee. Otherwise negative study. Electronically signed by: Reji Mayo MD (04/12/2017 6:39 AM) [facility]
[2017-04-12 07:10] LABS: BASO % 1 % (0-3); EOS % 2 % (0-3); HEMATOCRIT 43.4 % (39.0-53.0); HEMOGLOBIN 14.1 g/dL (13.0-17.5); LYMPH # 0.9 x10^3/uL (1.0-4.8); LYMPH % 13 % (24-48); MEAN CORPUSCULAR HEMOGLOBIN 28 pg (25-35); MEAN CORPUSCULAR HGB CONC 32 g/dL (31-37); MEAN CORPUSCULAR VOLUME 88 fL (79-100); MONO % 14 % (0-9); NEUT % 70 % (31-73); PLATELET COUNT 165 x10^3/uL (140-400); RED BLOOD COUNT 4.95 x10^6/uL (4.30-5.70); RED CELL DISTRIBUTION WIDTH 15.9 % (11.5-14.5); WHITE BLOOD COUNT 7.1 x10^3/uL (4.0-11.0)
--- NOTE | 2017-04-12 07:12 | RAD ---
Right knee, 3 views, 04/12/2017: History: Knee pain and swelling There is moderate spurring at the knee joint and at the patellofemoral articulation. No fracture or dislocation is identified. There is moderate soft tissue fullness in the suprapatellar region suggesting a joint effusion. There is subcutaneous edema anteriorly. Moderate arterial calcifications are noted. IMPRESSION: 1. Moderate degenerative change. 2. Knee joint effusion. 3. No acute bony abnormality is detected.
[2017-04-12 07:25] LABS: CALCIUM 8.8 mg/dL (8.5-10.1); CREATININE 1.2 mg/dL (0.7-1.3); GFR 73.5; POTASSIUM 4.3 mmol/L (3.5-5.1)
[2017-04-12] MEDS ORDERED: HYDROcodone/APAP 5/325MG 1 TAB TABLET PO ONE (07:30)
[2017-04-12] MEDS ORDERED: IBUP-1060 PO (07:42)
--- NOTE | 2017-04-12 07:43 | PHYS DOC ---
Past Medical History Past Medical History: Arthritis, COPD, Diabetes-Type II, GI Bleed, Hepatitis, Liver Disease, Other Additional Past Medical Histor: peptic ulcer, Past Surgical History: Other Additional Past Surgical Histo: eye surgery, left lung repair surgery Alcohol Use: Occasionally Drug Use: Cocaine, Marijuana Adult General Chief Complaint Chief Complaint: KNEE SWELLING HPI HPI Patient is a 67 year old M who presents with right knee pain and swelling. Patient states that for the past couple days the patient had increasing right knee pain with swelling with no history of traumatic injury. Patient denies any previous DVTs. Patient denies any shortness of breath. Patient denies any fevers. Patient has no other complaints. Review of Systems Review of Systems GEN: Denies fevers, chills, sweats HEENT: Denies blurred vision, sore throat CV: Denies chest pain RESP: Denies shortness of air, cough GI: Denies n/v/d NEURO: Denies confusion, dizziness MSK: right knee pain All other systems were reviewed and found to be within normal limits, except as documented in this note. Current Medications Current Medications Current Medications Medications (Trade) Dose Ordered Sig/Omaira Start Time Stop Time Status Last Admin Dose Admin Acetaminophen/ Hydrocodone Bitart (Lortab 5/325) 1 tab 1X ONCE 04/12/17 07:30 04/12/17 07:31 04/12/17 07:29 1 TAB Allergies Allergies Allergies Coded Allergies Type Severity Reaction Last Updated Verified No Known Drug Allergies 08/10/16 No Physical Exam Physical Exam GEN.: No apparent distress. Alert and oriented. HEENT: Head is normocephalic, atraumatic NECK: Supple. LUNGS: CTAB. HEART: RRR, S1, S2 present. Peripheral pulses intact ABDOMEN: Soft, nontender. Positive bowel sounds. EXTREMITIES: Without any cyanosis, tenderness palpation to the right knee with decreased range of motion secondary to pain mild joint effusion, dorsal pedis pulse palpated on the right NEUROLOGIC: Normal speech, normal tone PSYCHIATRIC: Normal affect, normal mood. SKIN: No ulcerations Current Patient Data Vital Signs Vital Signs Date Time Temp Pulse Resp B/P (MAP) Pulse Ox O2 Delivery O2 Flow Rate FiO2 04/12/17 05:55 97.8 79 20 96 Room Air 97.8 Lab Values Laboratory Tests Test 04/12/17 07:00 White Blood Count 7.1 x10^3/uL (4.0-11.0) Red Blood Count 4.95 x10^6/uL (4.30-5.70) Hemoglobin 14.1 g/dL (13.0-17.5) Hematocrit 43.4 % (39.0-53.0) Mean Corpuscular Volume 88 fL (79-100) Mean Corpuscular Hemoglobin 28 pg (25-35) Mean Corpuscular Hemoglobin Concent 32 g/dL (31-37) Red Cell Distribution Width 15.9 % (11.5-14.5) H Platelet Count 165 x10^3/uL (140-400) Neutrophils (%) (Auto) 70 % (31-73) Lymphocytes (%) (Auto) 13 % (24-48) L Monocytes (%) (Auto) 14 % (0-9) H Eosinophils (%) (Auto) 2 % (0-3) Basophils (%) (Auto) 1 % (0-3) Neutrophils # (Auto) 5.0 x10^3uL (1.8-7.7) Lymphocytes # (Auto) 0.9 x10^3/uL (1.0-4.8) L Monocytes # (Auto) 1.0 x10^3/uL (0.0-1.1) Eosinophils # (Auto) 0.1 x10^3/uL (0.0-0.7) Basophils # (Auto) 0.0 x10^3/uL (0.0-0.2) Sodium Level 137 mmol/L (136-145) Potassium Level 4.3 mmol/L (3.5-5.1) Chloride Level 101 mmol/L (98-107) Carbon Dioxide Level 29 mmol/L (21-32) Anion Gap 7 (6-14) Blood Urea Nitrogen 11 mg/dL (8-26) Creatinine 1.2 mg/dL (0.7-1.3) Estimated GFR (Cockcroft-Gault) 73.5 Glucose Level 114 mg/dL (70-99) H Calcium Level 8.8 mg/dL (8.5-10.1) Laboratory Tests 04/12/17 07:00 Laboratory Tests 04/12/17 07:00 EKG EKG [] Radiology/Procedures Radiology/Procedures X-ray right knee no obvious fracture Ultrasound right lower extremity: Impression: 3.5 cm popliteal cyst is seen posterior to the right knee. Otherwise negative study.[] Course & Med Decision Making Course & Med Decision Making Pertinent Labs and Imaging studies reviewed. (See chart for details) ED course: Patient was seen and examined emergency room CBC, BMP, x-ray, ultrasound right lower extremity were ordered 0738: Updated patient on lab results and ultrasound x-ray results and plan to discharge home with Lloyd recommended short-term follow-up his PCP for further evaluation and management. MDM: After reviewing the chart, CC/HPI/PMH, physical exam, [lab results], [ radiological results], I do not believe the patient has a significant injury to the right knee warranting further workup and/or admission at this time. I have low suspicion for a septic joint based off clinical exam findings and lab results. Believe the patient has a knee sprain with a joint effusion can chipping to his pain and is stable for discharge with short-term follow-up with his PCP. Additional verbal discharge instructions were provided to the patient and that if symptoms get worse or any new symptoms arise that are worrisome to the patient he is to return to the emergency room immediately [] Dragon Disclaimer Dragon Disclaimer This electronic medical record was generated, in whole or in part, using a voice recognition dictation system. Departure Departure Impression: Primary Impression: Right knee pain Disposition: 01 HOME, SELF-CARE Condition: IMPROVED Referrals: KELSY PAUL DO (PCP) Patient Instructions: Knee Pain Additional Instructions: Please follow-up with your family physician in the next one to 2 days and return if symptoms increase Scripts Ibuprofen (IBUPROFEN) 800 Mg Tablet 800 MG PO PRN Q8HRS Y for INFLAMMATION for 5 Days, #15 TAB Prov: GALINA GILMORE DO 04/12/17 GALINA GILMORE DO Apr 12, 2017 07:43
== END 2017-04-12 08:01 | disposition home or self-care (01) ==
LOC: ER 05:45
DX: M25.561 Pain in right knee (principal); J44.9 Chronic obstructive pulmonary disease, unspecified; E11.9 Type 2 diabetes mellitus without complications; F12.10 Cannabis abuse, uncomplicated; F14.10 Cocaine abuse, uncomplicated; Z87.11 Personal history of peptic ulcer disease
CPT/HCPCS: 36415; 73562; 80048; 85025; 93971; 99285-25

== ENCOUNTER 2017-05-08 09:29 | Emergency (ER) | payer OTHER ==
[2017-05-08] MEDS: HYDROcodone/APAP 5/325MG 1 TAB TABLET PO (10:05)
== END 2017-05-08 11:27 | disposition home or self-care (01) ==
LOC: ER 09:29
DX: M70.72 Other bursitis of hip, left hip (principal); G89.29 Other chronic pain; M25.561 Pain in right knee; M19.90 Unspecified osteoarthritis, unspecified site; J44.9 Chronic obstructive pulmonary disease, unspecified; E11.9 Type 2 diabetes mellitus without complications; F12.10 Cannabis abuse, uncomplicated; F14.10 Cocaine abuse, uncomplicated; Z86.19 Personal history of other infectious and parasitic diseases; Y93.01 Activity, walking, marching and hiking
CPT/HCPCS: 73502; 99284

== ENCOUNTER 2017-08-15 19:28 | Inpatient (IN) | payer OTHER ==
[2017-08-15] MEDS: IPRATRPIUM/ALBUTEROL 0.5/2.5MG 3 ML NEBU. NEB (19:59)
[2017-08-15 20:23] LABS: ADD MAN DIFF? NO
[2017-08-15 20:28] LABS: BASO % 1 % (0-3); EOS # 0.3 x10^3/uL (0.0-0.7); EOS % 5 % (0-3); HEMATOCRIT 43.7 % (39.0-53.0); HEMOGLOBIN 14.7 g/dL (13.0-17.5); LYMPH # 1.4 x10^3/uL (1.0-4.8); LYMPH % 20 % (24-48); MEAN CORPUSCULAR HEMOGLOBIN 29 pg (25-35); MEAN CORPUSCULAR HGB CONC 34 g/dL (31-37); MEAN CORPUSCULAR VOLUME 87 fL (79-100); MONO # 0.6 x10^3/uL (0.0-1.1); MONO % 9 % (0-9); NEUT # 4.4 x10^3uL (1.8-7.7); NEUT % 65 % (31-73); PLATELET COUNT 179 x10^3/uL (140-400); RED CELL DISTRIBUTION WIDTH 15.2 % (11.5-14.5); WHITE BLOOD COUNT 6.8 x10^3/uL (4.0-11.0)
[2017-08-15 20:43] LABS: ANION GAP 10 (6-14); BLOOD UREA NITROGEN 8 mg/dL (8-26); CALCIUM 9.2 mg/dL (8.5-10.1); CARBON DIOXIDE 27 mmol/L (21-32); CHLORIDE 104 mmol/L (98-107); GFR 90.7; GLUCOSE 94 mg/dL (70-99); POTASSIUM 3.9 mmol/L (3.5-5.1); SODIUM 141 mmol/L (136-145)
[2017-08-15 20:48] LABS: ALBUMIN 3.6 g/dL (3.4-5.0); ALK PHOS 75 U/L (46-116); ALT (SGPT) 24 U/L (16-63); AST (SGOT) 23 U/L (15-37); DIRECT BILIRUBIN 0.1 mg/dL (0.0-0.2); LIPASE 225 U/L (73-393); TOTAL BILIRUBIN 0.5 mg/dL (0.2-1.0); TOTAL PROTEIN 7.7 g/dL (6.4-8.2)
[2017-08-15 20:50] LABS: TROPONINI < 0.017 ng/mL (0.000-0.055)
[2017-08-15 20:51] LABS: LACTIC ACID 1.2 mmol/L (0.4-2.0)
[2017-08-15] MEDS: methylPREDNISolone SOD SUCC PF 125 MG/2 ML VIAL. IV (20:52)
[2017-08-15 20:55] LABS: NT-PRO BNP 71 pg/mL (0-124)
[2017-08-15] MEDS ORDERED: ONDANSETRON PF 4 MG/2 ML VIAL. IV (21:00)
[2017-08-15] MEDS: AZITHRMYCN 500MG IVPB FOR OMNI 250 ML IV (21:27)
[2017-08-15] MEDS: ASPIRIN CHEWABLE 81 MG TABLET. PO (22:00)
[2017-08-15 22:39] LABS: INFLUENZA A PATIENT NEGATIVE (NEGATIVE); INFLUENZA B PATIENT NEGATIVE (NEGATIVE); OBC FLU VALID
[2017-08-15 23:51] LABS: TROPONINI < 0.017 ng/mL (0.000-0.055)
[2017-08-16] MEDS: IV NORMAL SALINE 1000ML BAG 1,000 ML IV ×3 (00:33→17:21)
[2017-08-16] MEDS: IPRATRPIUM/ALBUTEROL 0.5/2.5MG 3 ML NEBU. NEB ×5 (01:53→19:30)
[2017-08-16 03:50] LABS: BASO % 0 % (0-3); EOS % 0 % (0-3); HEMATOCRIT 42.2 % (39.0-53.0); LYMPH # 0.5 x10^3/uL (1.0-4.8); LYMPH % 8 % (24-48); MEAN CORPUSCULAR HEMOGLOBIN 29 pg (25-35); MEAN CORPUSCULAR HGB CONC 33 g/dL (31-37); MEAN CORPUSCULAR VOLUME 88 fL (79-100); MONO # 0.1 x10^3/uL (0.0-1.1); MONO % 1 % (0-9); NEUT # 5.4 x10^3uL (1.8-7.7); NEUT % 91 % (31-73); PLATELET COUNT 161 x10^3/uL (140-400); RED BLOOD COUNT 4.81 x10^6/uL (4.30-5.70); RED CELL DISTRIBUTION WIDTH 15.3 % (11.5-14.5)
[2017-08-16 03:53] LABS: ADD MAN DIFF? YES
[2017-08-16 04:03] LABS: ANION GAP 11 (6-14); BLOOD UREA NITROGEN 10 mg/dL (8-26); CALCIUM 8.9 mg/dL (8.5-10.1); CARBON DIOXIDE 25 mmol/L (21-32); CHLORIDE 104 mmol/L (98-107); CREATININE 1.1 mg/dL (0.7-1.3); GFR 81.3; GLUCOSE 162 mg/dL (70-99); POTASSIUM 4.4 mmol/L (3.5-5.1); SODIUM 140 mmol/L (136-145)
[2017-08-16 04:15] LABS: TROPONINI < 0.017 ng/mL (0.000-0.055)
[2017-08-16 07:44] LABS: % LYMPHS 7 % (24-48); % MONOS 1 % (0-10); % SEGS 92 % (35-66)
[2017-08-16 07:45] LABS: PLT ESTIMATE ADEQUATE (ADEQUATE)
[2017-08-16 11:21] LABS: CHOLESTEROL 169 mg/dL (0-200); HDLC 61 mg/dL (40-60); LDLC 97 mg/dL (0-100); NON-HDL CHOLESTEROL 108 mg/dL (0-129); TRIGLYCERIDES 54 mg/dL (0-150); VLDLC 11 mg/dL (0-40)
[2017-08-16 11:23] LABS: CHOLESTEROL/HDL RATIO 2.8
[2017-08-16] MEDS ORDERED: CYCLOBENZAPRINE 10 MG TABLET. PO (14:30)
[2017-08-16] MEDS: FINASTERIDE 5 MG TABLET. PO (15:14)
[2017-08-16] MEDS: GABAPENTIN 100 MG CAPSULE. PO ×2 (15:14→20:38)
[2017-08-16] MEDS: FOLIC ACID 1 MG TABLET. PO (15:14)
[2017-08-16] MEDS: CYANOCOBALAMIN (VITAMIN B-12) 1,000 MCG TABLET. PO (15:14)
[2017-08-16] MEDS: TAMSULOSIN 0.4 MG CAP.ER.24H. PO (15:14)
[2017-08-16] MEDS: ENOXAPARIN 40 MG/0.4 ML SYRINGE. SQ (15:15)
[2017-08-16] MEDS: MORPHINE SULFATE 4 MG/ML DISP.SYRIN. IV (15:19)
[2017-08-16] MEDS: BUDESONIDE 0.5 MG/2 ML NEBU. NEB (19:30)
[2017-08-16] MEDS: cefTRIAXone IV Push 1 GM VIAL. IVP (20:38)
[2017-08-16] MEDS: LACTOBACILLUS RHAMNOSUS GG 1 CAPSULE. PO (20:38)
[2017-08-16 21:29] LABS: AMPHETAMINE/METHAMPHETAMINE NEG (NEG); BARBITURATES NEG (NEG); BENZODIAZEPINES NEG (NEG); CANNABINOIDS POS (NEG); COCAINE POS (NEG); ETHANOL, URINE NEG (NEG); METHADONE NEG (NEG); OPIATES POS (NEG); PHENCYCLIDINE NEG (NEG)
[2017-08-17] MEDS: IPRATRPIUM/ALBUTEROL 0.5/2.5MG 3 ML NEBU. NEB ×4 (03:12→19:30)
[2017-08-17] MEDS ORDERED: ALBUTEROL SULFATE 2.5 MG/3 ML NEBU. NEB (03:45)
[2017-08-17] MEDS: PROMETH/CODEINE 6.25/10MG 5 ML SYRUP. PO ×3 (04:01→21:06)
[2017-08-17] MEDS: BUDESONIDE 0.5 MG/2 ML NEBU. NEB ×2 (08:16→19:30)
[2017-08-17] MEDS: CYANOCOBALAMIN (VITAMIN B-12) 1,000 MCG TABLET. PO (08:29)
[2017-08-17] MEDS: LACTOBACILLUS RHAMNOSUS GG 1 CAPSULE. PO ×2 (08:29→21:04)
[2017-08-17] MEDS: TAMSULOSIN 0.4 MG CAP.ER.24H. PO (08:29)
[2017-08-17] MEDS: FINASTERIDE 5 MG TABLET. PO (08:29)
[2017-08-17] MEDS: GABAPENTIN 100 MG CAPSULE. PO ×3 (08:29→21:05)
[2017-08-17] MEDS: FOLIC ACID 1 MG TABLET. PO (08:29)
[2017-08-17] MEDS ORDERED: GABAPENTIN 300 MG PO (09:00)
[2017-08-17 09:45] LABS: ADD MAN DIFF? NO
[2017-08-17 10:01] LABS: BASO % 1 % (0-3); EOS # 0.2 x10^3/uL (0.0-0.7); EOS % 4 % (0-3); HEMATOCRIT 40.2 % (39.0-53.0); LYMPH # 1.4 x10^3/uL (1.0-4.8); LYMPH % 28 % (24-48); MEAN CORPUSCULAR HEMOGLOBIN 29 pg (25-35); MEAN CORPUSCULAR HGB CONC 32 g/dL (31-37); MEAN CORPUSCULAR VOLUME 89 fL (79-100); MONO # 0.2 x10^3/uL (0.0-1.1); MONO % 5 % (0-9); NEUT % 63 % (31-73); PLATELET COUNT 150 x10^3/uL (140-400); RED BLOOD COUNT 4.52 x10^6/uL (4.30-5.70); RED CELL DISTRIBUTION WIDTH 15.5 % (11.5-14.5); WHITE BLOOD COUNT 4.8 x10^3/uL (4.0-11.0)
[2017-08-17 10:18] LABS: ALBUMIN/GLOBULIN RATIO 0.8 (1.0-1.7); ALK PHOS 55 U/L (46-116); ALT (SGPT) 21 U/L (16-63); ANION GAP 11 (6-14); AST (SGOT) 20 U/L (15-37); BLOOD UREA NITROGEN 13 mg/dL (8-26); BUN/CREATININE RATIO 12 (6-20); CARBON DIOXIDE 26 mmol/L (21-32); CHLORIDE 108 mmol/L (98-107); CREATININE 1.1 mg/dL (0.7-1.3); GFR 81.3; GLUCOSE 154 mg/dL (70-99); POTASSIUM 3.6 mmol/L (3.5-5.1); SODIUM 145 mmol/L (136-145); TOTAL BILIRUBIN 0.4 mg/dL (0.2-1.0); TOTAL PROTEIN 6.7 g/dL (6.4-8.2)
[2017-08-17] MEDS: ENOXAPARIN 40 MG/0.4 ML SYRINGE. SQ (15:10)
[2017-08-17] MEDS: cefTRIAXone IV Push 1 GM VIAL. IVP ×2 (21:00→21:37)
[2017-08-18] MEDS: BUDESONIDE 0.5 MG/2 ML NEBU. NEB (07:04)
[2017-08-18] MEDS: IPRATRPIUM/ALBUTEROL 0.5/2.5MG 3 ML NEBU. NEB ×3 (07:04→14:44)
[2017-08-18] MEDS: FOLIC ACID 1 MG TABLET. PO (08:53)
[2017-08-18] MEDS: LACTOBACILLUS RHAMNOSUS GG 1 CAPSULE. PO (08:53)
[2017-08-18] MEDS: TAMSULOSIN 0.4 MG CAP.ER.24H. PO (08:53)
[2017-08-18] MEDS: GABAPENTIN 100 MG CAPSULE. PO ×2 (08:53→14:55)
[2017-08-18] MEDS: FINASTERIDE 5 MG TABLET. PO (08:53)
[2017-08-18] MEDS: CYANOCOBALAMIN (VITAMIN B-12) 1,000 MCG TABLET. PO (09:00)
[2017-08-18] MEDS: ENOXAPARIN 40 MG/0.4 ML SYRINGE. SQ (15:00)
[2017-08-18] MEDS: predniSONE 20 MG TABLET PO (15:12)
== END 2017-08-18 16:52 | disposition home or self-care (01) | DRG 189 ==
LOC: ER 19:28 → 5 NORTH 21:48
DX: J96.01 Acute respiratory failure with hypoxia (principal); J44.0 Chronic obstructive pulmonary disease with (acute) lower respiratory infection; Z99.81 Dependence on supplemental oxygen; J44.1 Chronic obstructive pulmonary disease with (acute) exacerbation; E11.9 Type 2 diabetes mellitus without complications; J20.9 Acute bronchitis, unspecified; E66.9 Obesity, unspecified; R07.89 Other chest pain; F19.10 Other psychoactive substance abuse, uncomplicated; F14.10 Cocaine abuse, uncomplicated; F17.210 Nicotine dependence, cigarettes, uncomplicated; I10 Essential (primary) hypertension; Z68.31 Body mass index [BMI] 31.0-31.9, adult; Z87.11 Personal history of peptic ulcer disease; Z71.6 Tobacco abuse counseling
CPT/HCPCS: 36415; 71045; 80048; 80053; 80061; 80076; 80307; 83605; 83690; 83880; 84484; 85007; 85025; 87040; 87804; 87804-59; 93005; 93306; 94640; 94760; 96365; 96368; 96375; 99285-25; J0456; J0690; J0696; J1650; J2270; J2930; J7030; J7512; J7620; J7626

== ENCOUNTER 2017-08-28 11:48 | Emergency (ER) | payer OTHER ==
[2017-08-28] MEDS ORDERED: IPRATRPIUM/ALBUTEROL 0.5/2.5MG 3 ML NEBU. (12:18)
[2017-08-28] MEDS: IPRATRPIUM/ALBUTEROL 0.5/2.5MG 3 ML NEBU. NEB (12:19)
[2017-08-28 12:22] LABS: ADD MAN DIFF? NO
[2017-08-28] MEDS: methylPREDNISolone SOD SUCC PF 125 MG/2 ML VIAL. IV (12:22)
[2017-08-28 12:28] LABS: BASO % 1 % (0-3); EOS # 0.1 x10^3/uL (0.0-0.7); EOS % 1 % (0-3); HEMATOCRIT 44.8 % (39.0-53.0); HEMOGLOBIN 15.5 g/dL (13.0-17.5); LYMPH # 0.5 x10^3/uL (1.0-4.8); LYMPH % 8 % (24-48); MEAN CORPUSCULAR HEMOGLOBIN 30 pg (25-35); MEAN CORPUSCULAR HGB CONC 35 g/dL (31-37); MEAN CORPUSCULAR VOLUME 87 fL (79-100); MONO # 0.7 x10^3/uL (0.0-1.1); MONO % 10 % (0-9); NEUT # 5.4 x10^3uL (1.8-7.7); NEUT % 81 % (31-73); PLATELET COUNT 135 x10^3/uL (140-400); RED BLOOD COUNT 5.14 x10^6/uL (4.30-5.70); RED CELL DISTRIBUTION WIDTH 15.4 % (11.5-14.5); WHITE BLOOD COUNT 6.8 x10^3/uL (4.0-11.0)
[2017-08-28 12:37] LABS: ANION GAP 9 (6-14); BLOOD UREA NITROGEN 14 mg/dL (8-26); BUN/CREATININE RATIO 10 (6-20); CALCIUM 8.6 mg/dL (8.5-10.1); CARBON DIOXIDE 26 mmol/L (21-32); CHLORIDE 101 mmol/L (98-107); CREATININE 1.4 mg/dL (0.7-1.3); GFR 61.5; GLUCOSE 110 mg/dL (70-99); POTASSIUM 4.1 mmol/L (3.5-5.1); SODIUM 136 mmol/L (136-145)
[2017-08-28 12:44] LABS: ALBUMIN 3.5 g/dL (3.4-5.0); ALBUMIN/GLOBULIN RATIO 0.8 (1.0-1.7); ALK PHOS 60 U/L (46-116); ALT (SGPT) 31 U/L (16-63); AST (SGOT) 34 U/L (15-37); TOTAL PROTEIN 7.9 g/dL (6.4-8.2)
[2017-08-28 12:51] LABS: NT-PRO BNP 98 pg/mL (0-124)
[2017-08-28 12:51] LABS: CKMB INDEX 0.3 % (0-4); CKMB MASS 1.9 ng/mL (0.0-3.6); CREATINE KINASE 641 U/L (39-308)
[2017-08-28 12:53] LABS: TROPONINI < 0.017 ng/mL (0.000-0.055)
[2017-08-28] MEDS: CIPROFLOXACIN HCL 250 MG TABLET. PO (14:18)
[2017-08-28] MEDS: ACETAMINOPHEN 500 MG TABLET PO (14:21)
== END 2017-08-28 14:58 | disposition home or self-care (01) ==
LOC: ER 11:48
DX: J44.1 Chronic obstructive pulmonary disease with (acute) exacerbation (principal); E11.9 Type 2 diabetes mellitus without complications; F12.10 Cannabis abuse, uncomplicated; F14.10 Cocaine abuse, uncomplicated
CPT/HCPCS: 36415; 71045; 80053; 82553; 83880; 84484; 85025; 93005; 94640; 96374; 99285-25; J2930; J7620

== ENCOUNTER 2017-09-11 12:17 | Emergency (ER) | payer OTHER ==
[2017-09-11 12:47] LABS: ADD MAN DIFF? NO
[2017-09-11] MEDS: IPRATRPIUM/ALBUTEROL 0.5/2.5MG 3 ML NEBU. NEB (12:49)
[2017-09-11 12:51] LABS: BASO % 0 % (0-3); EOS # 0.1 x10^3/uL (0.0-0.7); EOS % 2 % (0-3); HEMATOCRIT 42.9 % (39.0-53.0); HEMOGLOBIN 14.6 g/dL (13.0-17.5); LYMPH # 0.7 x10^3/uL (1.0-4.8); LYMPH % 10 % (24-48); MEAN CORPUSCULAR HEMOGLOBIN 30 pg (25-35); MEAN CORPUSCULAR HGB CONC 34 g/dL (31-37); MEAN CORPUSCULAR VOLUME 88 fL (79-100); MONO # 0.5 x10^3/uL (0.0-1.1); MONO % 7 % (0-9); NEUT # 5.9 x10^3uL (1.8-7.7); NEUT % 81 % (31-73); PLATELET COUNT 150 x10^3/uL (140-400); RED BLOOD COUNT 4.85 x10^6/uL (4.30-5.70); RED CELL DISTRIBUTION WIDTH 15.2 % (11.5-14.5); WHITE BLOOD COUNT 7.3 x10^3/uL (4.0-11.0)
[2017-09-11 12:58] LABS: ANION GAP 10 (6-14); BLOOD UREA NITROGEN 8 mg/dL (8-26); BUN/CREATININE RATIO 7 (6-20); CALCIUM 8.4 mg/dL (8.5-10.1); CARBON DIOXIDE 26 mmol/L (21-32); CHLORIDE 100 mmol/L (98-107); CREATININE 1.2 mg/dL (0.7-1.3); GFR 73.5; GLUCOSE 131 mg/dL (70-99); POTASSIUM 3.9 mmol/L (3.5-5.1); SODIUM 136 mmol/L (136-145)
[2017-09-11] MEDS: methylPREDNISolone SOD SUCC PF 125 MG/2 ML VIAL. IV (12:59)
[2017-09-11] MEDS: fentaNYL PF VIAL 100 MCG/2 ML VIAL IV (13:00)
[2017-09-11 13:03] LABS: ALBUMIN 3.1 g/dL (3.4-5.0); ALBUMIN/GLOBULIN RATIO 0.8 (1.0-1.7); ALK PHOS 73 U/L (46-116); ALT (SGPT) 32 U/L (16-63); AST (SGOT) 23 U/L (15-37); TOTAL BILIRUBIN 0.5 mg/dL (0.2-1.0); TOTAL PROTEIN 6.8 g/dL (6.4-8.2)
[2017-09-11 13:06] LABS: TROPONINI 0.028 ng/mL (0.000-0.055)
[2017-09-11 13:12] LABS: NT-PRO BNP 98 pg/mL (0-124)
[2017-09-12 07:05] LABS: NEGATIVE OBC STREP NEG; POSITIVE OBC STREP POS
== END 2017-09-11 14:59 | disposition home or self-care (01) ==
LOC: ER 12:17
DX: J02.9 Acute pharyngitis, unspecified (principal); R06.02 Shortness of breath; R05 Cough; E11.9 Type 2 diabetes mellitus without complications; J44.9 Chronic obstructive pulmonary disease, unspecified; F14.10 Cocaine abuse, uncomplicated; F12.10 Cannabis abuse, uncomplicated; Z87.11 Personal history of peptic ulcer disease
CPT/HCPCS: 36415; 71045; 80053; 83880; 84484; 85025; 87880; 93005; 94640; 96374; 96375; 99285-25; J2930; J3010; J7620

== ENCOUNTER 2017-09-20 13:27 | Emergency (ER) | payer OTHER ==
[2017-09-20] MEDS: IPRATRPIUM/ALBUTEROL 0.5/2.5MG 3 ML NEBU. NEB ×2 (14:58)
[2017-09-20 15:17] LABS: ADD MAN DIFF? NO
[2017-09-20 15:18] LABS: BASO % 1 % (0-3); EOS # 0.1 x10^3/uL (0.0-0.7); EOS % 2 % (0-3); HEMATOCRIT 44.5 % (39.0-53.0); HEMOGLOBIN 15.1 g/dL (13.0-17.5); LYMPH # 0.8 x10^3/uL (1.0-4.8); LYMPH % 13 % (24-48); MEAN CORPUSCULAR HEMOGLOBIN 30 pg (25-35); MEAN CORPUSCULAR HGB CONC 34 g/dL (31-37); MEAN CORPUSCULAR VOLUME 88 fL (79-100); MONO # 0.5 x10^3/uL (0.0-1.1); MONO % 8 % (0-9); NEUT # 4.8 x10^3uL (1.8-7.7); NEUT % 77 % (31-73); PLATELET COUNT 153 x10^3/uL (140-400); RED BLOOD COUNT 5.07 x10^6/uL (4.30-5.70); RED CELL DISTRIBUTION WIDTH 15.5 % (11.5-14.5); WHITE BLOOD COUNT 6.3 x10^3/uL (4.0-11.0)
[2017-09-20] MEDS: IBUPROFEN 400 MG TABLET. PO ×2 (15:20)
[2017-09-20 15:28] LABS: ANION GAP 5 (6-14); BLOOD UREA NITROGEN 6 mg/dL (8-26); BUN/CREATININE RATIO 5 (6-20); CALCIUM 9.1 mg/dL (8.5-10.1); CARBON DIOXIDE 30 mmol/L (21-32); CHLORIDE 102 mmol/L (98-107); CREATININE 1.2 mg/dL (0.7-1.3); GFR 73.5; GLUCOSE 100 mg/dL (70-99); POTASSIUM 4.9 mmol/L (3.5-5.1); SODIUM 137 mmol/L (136-145)
[2017-09-20 15:44] LABS: LACTIC ACID 1.5 mmol/L (0.4-2.0); NT-PRO BNP 249 pg/mL (0-124)
[2017-09-20 15:44] LABS: ALBUMIN 3.4 g/dL (3.4-5.0); ALBUMIN/GLOBULIN RATIO 0.8 (1.0-1.7); ALK PHOS 68 U/L (46-116); ALT (SGPT) 34 U/L (16-63); AST (SGOT) 30 U/L (15-37); TOTAL BILIRUBIN 0.6 mg/dL (0.2-1.0); TOTAL PROTEIN 7.6 g/dL (6.4-8.2)
== END 2017-09-20 17:27 | disposition home or self-care (01) ==
LOC: ER 13:27
DX: J40 Bronchitis, not specified as acute or chronic (principal); I50.9 Heart failure, unspecified; E11.9 Type 2 diabetes mellitus without complications; M19.90 Unspecified osteoarthritis, unspecified site; J44.9 Chronic obstructive pulmonary disease, unspecified; F17.210 Nicotine dependence, cigarettes, uncomplicated; F12.10 Cannabis abuse, uncomplicated; F14.10 Cocaine abuse, uncomplicated
CPT/HCPCS: 36415; 71046; 80053; 83605; 83880; 85025; 93005; 94640; 99285-25; J7620

== ENCOUNTER 2017-09-21 15:05 | Emergency (ER) | payer OTHER ==
[2017-09-21] MEDS: IPRATRPIUM/ALBUTEROL 0.5/2.5MG 3 ML NEBU. NEB (16:08)
[2017-09-21 16:35] LABS: ADD MAN DIFF? NO
[2017-09-21 16:38] LABS: BASO % 1 % (0-3); EOS # 0.1 x10^3/uL (0.0-0.7); EOS % 1 % (0-3); HEMATOCRIT 43.6 % (39.0-53.0); HEMOGLOBIN 14.6 g/dL (13.0-17.5); LYMPH # 0.6 x10^3/uL (1.0-4.8); LYMPH % 13 % (24-48); MEAN CORPUSCULAR HEMOGLOBIN 30 pg (25-35); MEAN CORPUSCULAR HGB CONC 34 g/dL (31-37); MEAN CORPUSCULAR VOLUME 88 fL (79-100); MONO # 0.4 x10^3/uL (0.0-1.1); MONO % 9 % (0-9); NEUT # 3.2 x10^3uL (1.8-7.7); NEUT % 76 % (31-73); PLATELET COUNT 129 x10^3/uL (140-400); RED BLOOD COUNT 4.95 x10^6/uL (4.30-5.70); RED CELL DISTRIBUTION WIDTH 15.5 % (11.5-14.5); WHITE BLOOD COUNT 4.2 x10^3/uL (4.0-11.0)
[2017-09-21 16:52] LABS: ANION GAP 7 (6-14); BLOOD UREA NITROGEN 14 mg/dL (8-26); BUN/CREATININE RATIO 12 (6-20); CALCIUM 8.5 mg/dL (8.5-10.1); CARBON DIOXIDE 25 mmol/L (21-32); CHLORIDE 102 mmol/L (98-107); CREATININE 1.2 mg/dL (0.7-1.3); GFR 73.5; GLUCOSE 86 mg/dL (70-99); POTASSIUM 4.5 mmol/L (3.5-5.1); SODIUM 134 mmol/L (136-145)
[2017-09-21 16:59] LABS: ALBUMIN 3.3 g/dL (3.4-5.0); ALBUMIN/GLOBULIN RATIO 0.8 (1.0-1.7); ALK PHOS 53 U/L (46-116); ALT (SGPT) 35 U/L (16-63); AST (SGOT) 33 U/L (15-37); TOTAL BILIRUBIN 0.7 mg/dL (0.2-1.0); TOTAL PROTEIN 7.2 g/dL (6.4-8.2)
[2017-09-21 17:03] LABS: TROPONINI < 0.017 ng/mL (0.000-0.055)
[2017-09-21 17:08] LABS: NT-PRO BNP 139 pg/mL (0-124)
[2017-09-21 19:00] LABS: BILIRUBIN,URINE NEGATIVE (NEG); CLARITY,URINE CLEAR; COLOR,URINE YELLOW; GLUCOSE,URINE NEGATIVE (NEG); NITRITE,URINE NEGATIVE (NEG); PROTEIN,URINE 30 mg/dL (NEG-TRACE)
[2017-09-21 19:12] LABS: BACTERIA,URINE 0 /HPF (0-FEW); RBC,URINE OCC /HPF (0-2); WBC,URINE 0 /HPF (0-4)
== END 2017-09-21 19:25 | disposition home or self-care (01) ==
LOC: ER 15:05
DX: J44.1 Chronic obstructive pulmonary disease with (acute) exacerbation (principal); E11.9 Type 2 diabetes mellitus without complications; M19.90 Unspecified osteoarthritis, unspecified site; F14.10 Cocaine abuse, uncomplicated; F12.10 Cannabis abuse, uncomplicated; Z86.19 Personal history of other infectious and parasitic diseases; Z87.11 Personal history of peptic ulcer disease; Z98.890 Other specified postprocedural states
CPT/HCPCS: 36415; 71045; 80053; 81001; 83605; 83880; 84484; 85025; 87040; 93005; 94640; 99285; J7620

== ENCOUNTER → 2017-11-10 | Outpatient (CLI) | payer OTHER ==
[2017-11-10 16:37] LABS: ADD MAN DIFF? NO
[2017-11-10 16:45] LABS: BASO % 1 % (0-3); EOS # 0.2 x10^3/uL (0.0-0.7); EOS % 3 % (0-3); HEMATOCRIT 40.2 % (39.0-53.0); HEMOGLOBIN 13.3 g/dL (13.0-17.5); LYMPH # 1.3 x10^3/uL (1.0-4.8); LYMPH % 21 % (24-48); MEAN CORPUSCULAR HEMOGLOBIN 30 pg (25-35); MEAN CORPUSCULAR HGB CONC 33 g/dL (31-37); MEAN CORPUSCULAR VOLUME 89 fL (79-100); MONO # 0.7 x10^3/uL (0.0-1.1); MONO % 11 % (0-9); NEUT % 64 % (31-73); PLATELET COUNT 196 x10^3/uL (140-400); RED CELL DISTRIBUTION WIDTH 16.1 % (11.5-14.5); WHITE BLOOD COUNT 6.1 x10^3/uL (4.0-11.0)
[2017-11-10 17:12] LABS: ALBUMIN 3.6 g/dL (3.4-5.0); ALBUMIN/GLOBULIN RATIO 0.9 (1.0-1.7); ALK PHOS 55 U/L (46-116); ALT (SGPT) 18 U/L (16-63); ANION GAP 9 (6-14); AST (SGOT) 17 U/L (15-37); BLOOD UREA NITROGEN 7 mg/dL (8-26); BUN/CREATININE RATIO 7 (6-20); CARBON DIOXIDE 29 mmol/L (21-32); CHLORIDE 106 mmol/L (98-107); GFR 90.7; GLUCOSE 89 mg/dL (70-99); SODIUM 144 mmol/L (136-145); TOTAL BILIRUBIN 0.4 mg/dL (0.2-1.0); TOTAL PROTEIN 7.4 g/dL (6.4-8.2)
[2017-11-10 17:13] LABS: THYROID STIM HORMONE (TSH) 0.886 uIU/mL (0.358-3.74)
[2017-11-10 17:26] LABS: BARBITURATES NEG (NEG); BENZODIAZEPINES NEG (NEG); CANNABINOIDS POS (NEG); COCAINE POS (NEG); METHADONE NEG (NEG); OPIATES NEG (NEG); PHENCYCLIDINE NEG (NEG)
[2017-11-10 17:44] LABS: AMPHETAMINE/METHAMPHETAMINE NEG (NEG); ETHANOL, URINE NEG (NEG)
[2017-11-10 18:00] LABS: VITAMIN-B12 284 pg/mL (247-911)
== END | disposition home or self-care (01) ==
LOC: LAB 16:15
DX: R56.9 Unspecified convulsions (principal)
CPT/HCPCS: 36415; 80053; 80307; 82607; 84443; 85025

== ENCOUNTER → 2017-11-12 | Outpatient (CLI) | payer OTHER | END | disposition home or self-care (01) | LOC: RT 10:39 | DX: R56.9 Unspecified convulsions (principal) | CPT/HCPCS: 95816 ==

== ENCOUNTER → 2017-11-16 | Outpatient (CLI) | payer OTHER ==
[2017-11-16] MEDS: GADOBUTROL 7.5 MMOL/7.5 ML VIAL IV (10:40)
== END | disposition home or self-care (01) ==
LOC: MRI 09:47
DX: R56.9 Unspecified convulsions (principal); I10 Essential (primary) hypertension; E11.9 Type 2 diabetes mellitus without complications; J44.1 Chronic obstructive pulmonary disease with (acute) exacerbation; E66.9 Obesity, unspecified; E03.9 Hypothyroidism, unspecified; Z87.891 Personal history of nicotine dependence
CPT/HCPCS: 70553; A9585

== ENCOUNTER 2018-01-26 11:53 | Emergency (ER) | payer OTHER ==
[~2018-01-26] VITALS: Ht 165.1 cm; Wt 82.6 kg
[~2018-01-26 11:53] MED LIST changes: +AMOX1TAB10 PO; +AZIT250T PO; +AZIT500T PO; +CIPR500T94 PO; +IBUP-1027 PO; +IBUP-1060 PO; +LEVO500T59 PO; +METH4TAB2 PO; +PRED20TA PO; +PRED50TA PO; +VENTOLIN HFA18 GM IH
[2018-01-26] MEDS ORDERED: IV NORMAL SALINE 1000ML BAG 1,000 ML IV ONE (12:30)
[2018-01-26] MEDS ORDERED: IPRATRPIUM/ALBUTEROL 0.5/2.5MG 3 ML NEBU. NEB ONE (12:30)
[2018-01-26] MEDS ORDERED: ACETAMINOPHEN 500 MG TABLET PO ONE (12:30)
[2018-01-26] MEDS ORDERED: CONTRAST GIVEN. MC PRN (12:45)
[2018-01-26] MEDS ORDERED: IOHEXOL 300 MG/ML 100ML VIAL. IV ONE (12:45)
--- NOTE | 2018-01-26 12:55 | RAD ---
Examination: PORTABLE CHEST 1V History: FEVER,COUGH,SPUTUM Comparison/Correlation: 09/21/2017 Portable Chest X-ray Exam Findings: Portable upright frontal view of the chest was obtained. Heart size and pulmonary vasculature are normal. No infiltrate or pleural effusion. No pneumothorax. High riding humeral head bilaterally is noted. Undersurface remodeling of the acromion bilaterally noted along with subchondral degenerative changes of the humeral heads. Impression: No infiltrate. No active disease. Electronically signed by: Kirby Cowan MD (01/26/2018 12:51 PM) [facility]
[2018-01-26 13:21] LABS: BASO # 0.1 x10^3/uL (0.0-0.2); BASO % 1 % (0-3); EOS # 0.2 x10^3/uL (0.0-0.7); EOS % 2 % (0-3); HEMATOCRIT 43.3 % (39.0-53.0); HEMOGLOBIN 14.6 g/dL (13.0-17.5); LYMPH # 1.1 x10^3/uL (1.0-4.8); LYMPH % 11 % (24-48); MEAN CORPUSCULAR HEMOGLOBIN 29 pg (25-35); MEAN CORPUSCULAR HGB CONC 34 g/dL (31-37); MEAN CORPUSCULAR VOLUME 86 fL (79-100); MONO # 0.9 x10^3/uL (0.0-1.1); MONO % 10 % (0-9); NEUT # 7.3 x10^3uL (1.8-7.7); NEUT % 77 % (31-73); PLATELET COUNT 173 x10^3/uL (140-400); RED BLOOD COUNT 5.03 x10^6/uL (4.30-5.70); RED CELL DISTRIBUTION WIDTH 15.5 % (11.5-14.5); WHITE BLOOD COUNT 9.5 x10^3/uL (4.0-11.0)
--- NOTE | 2018-01-26 13:33 | PHYS DOC ---
Past Medical History Past Medical History: Arthritis, COPD, Diabetes-Type II, GI Bleed, Hepatitis, Liver Disease, P.U.D., Other Additional Past Medical Histor: peptic ulcer, Past Surgical History: Other Additional Past Surgical Histo: eye surgery, left lung repair surgery,BILAT WRIST Alcohol Use: Occasionally Drug Use: Cocaine, Marijuana Adult General Chief Complaint Chief Complaint: WEAKNESS/GENERALIZED HPI HPI Patient is a 67 year old male who is presenting to the emergency room with chief complaint of generalized weakness body aches runny nose cough mostly dry occasional white or yellowish sputum. He does have a history of COPD he does take inhalers for this. In addition he is worried about some swelling over the left mandible angle. A biopsy approximately 10 days ago for some sort of a lesion in his bone he tells me and then over the last 2 days the area has become more swollen and tender to touch and a little bit red as well. Patient is feeling subjective fever and just generally not feeling very well at all. No diarrhea no vomiting no chest pain Review of Systems Review of Systems Constitutional: Cardiovascular: No additional information not addressed in HPI [] Musculoskeletal: Denies back pain or joint pain [] Integument: HPI Neurologic: Denies headache, focal weakness or sensory changes [] All other systems were reviewed and found to be within normal limits, except as documented in this note. Current Medications Current Medications Current Medications Medications (Trade) Dose Ordered Sig/Omaira Start Time Stop Time Status Last Admin Dose Admin Acetaminophen (Tylenol) 1,000 mg 1X ONCE 01/26/18 12:30 01/26/18 12:31 DC 01/26/18 13:09 1,000 MG Albuterol/ Ipratropium (Duoneb) 3 ml 1X ONCE 01/26/18 12:30 01/26/18 12:31 DC 01/26/18 12:52 3 ML Info (CONTRAST GIVEN -- Rx MONITORING) 1 each PRN DAILY PRN 01/26/18 12:45 01/28/18 12:44 Iohexol (Omnipaque 300 Mg/ml) 75 ml 1X ONCE 01/26/18 12:45 01/26/18 12:46 DC 01/26/18 12:45 70 ML Piperacillin Sod/ Tazobactam Sod 3.375 gm/Sodium Chloride 50 ml @ 100 mls/hr 1X ONCE 01/26/18 15:15 01/26/18 15:44 DC 01/26/18 15:23 100 MLS/HR Sodium Chloride 1,000 ml @ 1,000 mls/hr 1X ONCE 01/26/18 12:30 01/26/18 13:29 DC 01/26/18 13:08 1,000 MLS/HR Vancomycin HCl (Vanco Per Pharmacy) 1 each PRN DAILY PRN 01/26/18 14:45 UNV Vancomycin HCl 2 gm/Sodium Chloride 500 ml @ 250 mls/hr 1X ONCE 01/26/18 15:00 01/26/18 16:59 01/26/18 16:17 250 MLS/HR Allergies Allergies Allergies Coded Allergies Type Severity Reaction Last Updated Verified No Known Drug Allergies 08/10/16 No Physical Exam Physical Exam Constitutional: Well developed, well nourished, no acute distress, non-toxic appearance. [] HENT: Normocephalic, atraumatic, bilateral external ears normal, oropharynx moist, no oral exudates, nose normal. [] Eyes: PERRLA, EOMI, conjunctiva normal, no discharge. [] Neck: Normal range of motion, no tenderness, supple, no stridor. [] Cardiovascular:Heart rate regular rhythm, no murmur [] Lungs & Thorax: FAINT WHEZING NOTED Abdomen: Bowel sounds normal, soft, no tenderness, no masses, no pulsatile masses. [] Skin: LEFT MANDIBLE AT THE TMJ AREA THERE IS MODERATE ERYTHEMA AND INDURATION NO DEFINITE FLUCTUANCE. PT HAS NO TRISMUS AIRWAY IS PATENT. Back: No tenderness, no CVA tenderness. [] Extremities: No tenderness, no cyanosis, no clubbing, ROM intact, no edema. [] Neurologic: Alert and oriented X 3, normal motor function, normal sensory function, no focal deficits noted. [] Psychologic: Affect normal, judgement normal, mood normal. [] Current Patient Data Vital Signs Vital Signs Date Time Temp Pulse Resp B/P (MAP) Pulse Ox O2 Delivery O2 Flow Rate FiO2 01/26/18 12:53 96 Room Air 01/26/18 12:00 100.2 86 16 138/77 (97) 100.2 Lab Values Laboratory Tests Test 01/26/18 13:00 01/26/18 14:10 White Blood Count 9.5 x10^3/uL (4.0-11.0) Red Blood Count 5.03 x10^6/uL (4.30-5.70) Hemoglobin 14.6 g/dL (13.0-17.5) Hematocrit 43.3 % (39.0-53.0) Mean Corpuscular Volume 86 fL (79-100) Mean Corpuscular Hemoglobin 29 pg (25-35) Mean Corpuscular Hemoglobin Concent 34 g/dL (31-37) Red Cell Distribution Width 15.5 % (11.5-14.5) H Platelet Count 173 x10^3/uL (140-400) Neutrophils (%) (Auto) 77 % (31-73) H Lymphocytes (%) (Auto) 11 % (24-48) L Monocytes (%) (Auto) 10 % (0-9) H Eosinophils (%) (Auto) 2 % (0-3) Basophils (%) (Auto) 1 % (0-3) Neutrophils # (Auto) 7.3 x10^3uL (1.8-7.7) Lymphocytes # (Auto) 1.1 x10^3/uL (1.0-4.8) Monocytes # (Auto) 0.9 x10^3/uL (0.0-1.1) Eosinophils # (Auto) 0.2 x10^3/uL (0.0-0.7) Basophils # (Auto) 0.1 x10^3/uL (0.0-0.2) Sodium Level 138 mmol/L (136-145) Potassium Level 4.0 mmol/L (3.5-5.1) Chloride Level 101 mmol/L (98-107) Carbon Dioxide Level 27 mmol/L (21-32) Anion Gap 10 (6-14) Blood Urea Nitrogen 6 mg/dL (8-26) L Creatinine 1.1 mg/dL (0.7-1.3) Estimated GFR (Cockcroft-Gault) 81.3 BUN/Creatinine Ratio 5 (6-20) L Glucose Level 113 mg/dL (70-99) H Lactic Acid Level 1.5 mmol/L (0.4-2.0) Calcium Level 9.2 mg/dL (8.5-10.1) Total Bilirubin 0.6 mg/dL (0.2-1.0) Aspartate Amino Transferase (AST) 27 U/L (15-37) Alanine Aminotransferase (ALT) 21 U/L (16-63) Alkaline Phosphatase 62 U/L (46-116) Total Protein 7.9 g/dL (6.4-8.2) Albumin 3.5 g/dL (3.4-5.0) Albumin/Globulin Ratio 0.8 (1.0-1.7) L Urine Collection Type Unknown Urine Color Yellow Urine Clarity Clear Urine pH 7.0 Urine Specific [place] 1.015 Urine Protein 30 mg/dL (NEG-TRACE) Urine Glucose (UA) Negative mg/dL (NEG) Urine Ketones (Stick) Negative mg/dL (NEG) Urine Blood Negative (NEG) Urine Nitrite Negative (NEG) Urine Bilirubin Negative (NEG) Urine Urobilinogen Dipstick 0.2 mg/dL (0.2 mg/dL) Urine Leukocyte Esterase Negative (NEG) Urine RBC 0 /HPF (0-2) Urine WBC 0 /HPF (0-4) Urine Bacteria 0 /HPF (0-FEW) Urine Hyaline Casts Few /HPF Urine Mucus Slight /LPF Laboratory Tests 01/26/18 13:00 Laboratory Tests 01/26/18 13:00 EKG EKG [] Radiology/Procedures Radiology/Procedures [] Impressions: CXR NEG ACUTE. Findings: Portable upright frontal view of the chest was obtained. Heart size and pulmonary vasculature are normal. No infiltrate or pleural effusion. No pneumothorax. High riding humeral head bilaterally is noted. Undersurface remodeling of the acromion bilaterally noted along with subchondral degenerative changes of the humeral heads. Impression: No infiltrate. No active disease. Electronically signed by: Kirby Duncan MD (01/26/2018 12:51 PM) [facility] DICTATED and SIGNED BY: KIRBY DUNCAN MD DATE: 01/26/18 [id number] IMPRESSION: 1. A 1.8 cm peripherally enhancing hypodensity identified in the left parotid gland likely abscess. Underlying hypodense mass is not completely excluded. There is moderate fat stranding identified about the left parotid and extending into the subcutaneous region likely parotitis/cellulitis. Electronically signed by: Augusto Moran MD (01/26/2018 2:30 PM) [id number] DICTATED and SIGNED BY: AUGUSTO MORAN MD Course & Med Decision Making Course & Med Decision Making Pertinent Labs and Imaging studies reviewed. (See chart for details) []67-year-old male with history of COPD was presenting with a low-grade fever body aches cough and runny nose probably viral syndrome chest x-ray negative for pneumonia however he does have some swelling and induration and a recent cervical biopsy of the left jaw area we will do a CT scan with contrast to evaluate for abscess. Chest x-ray negative noted the CT scan finding and did talk to Dr. Jeffrey from [facility] at . 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 He has not yet reviewed the images from today but he said that he would be happy to consult on this patient at there may be some localized cellulitis. Recommends also Cynthia for other sources of fever. Plan to admit to the service of Dr. Woodward at accepting M.D. he also recommended so since I ordered that as well as vancomycin. Patient be transferred in stable condition he consents to transfer. Reason for transfer is that we do not have ENT consultation and for continuity of care. Dragon Disclaimer Dragon Disclaimer This electronic medical record was generated, in whole or in part, using a voice recognition dictation system. Departure Departure Impression: Primary Impression: Facial cellulitis Disposition: 02 TRANSFER [facility] Condition: STABLE Referrals: UNKNOWN PCP NAME (PCP) SANDRA ALVARENGA MD Jan 26, 2018 13:33
[2018-01-26 13:35] LABS: CALCIUM 9.2 mg/dL (8.5-10.1); CREATININE 1.1 mg/dL (0.7-1.3); GFR 81.3
[2018-01-26 13:49] LABS: ALBUMIN 3.5 g/dL (3.4-5.0); ALBUMIN/GLOBULIN RATIO 0.8 (1.0-1.7); TOTAL BILIRUBIN 0.6 mg/dL (0.2-1.0); TOTAL PROTEIN 7.9 g/dL (6.4-8.2)
[2018-01-26 14:26] LABS: BILIRUBIN,URINE NEGATIVE (NEG); CLARITY,URINE CLEAR; COLOR,URINE YELLOW; NITRITE,URINE NEGATIVE (NEG); PROTEIN,URINE 30 mg/dL (NEG-TRACE); UROBILINOGEN,URINE 0.2 mg/dL (0.2 mg/dL)
--- NOTE | 2018-01-26 14:34 | RAD ---
Examination: CT maxillofacial with IV contrast HISTORY: History of left-sided facial pain, swelling COMPARISON: None available Technique: Axial CT images of the maxillofacial was performed with IV contrast. Coronal and sagittal deformities are performed Exposure: One or more of the following individualized dose reduction techniques were utilized for this examination: 1. Automated exposure control 2. Adjustment of the mA and/or kV according to patient size 3. Use of iterative reconstruction technique FINDINGS: The visualized intracranial portion grossly appears unremarkable As peripherally enhancing hypodensity identified in the left parotid gland measuring 1.8 x 1.8 cm with surrounding inflammatory fat stranding about the left parotid and extending into the subcutaneous region about the left parotid could be abscess with surrounding soft tissue infection/cellulitis. The right orbital globe appears somewhat flattened similar to prior CT head of 11/11/2014. The retro-orbital fat is maintained. Moderate atherosclerotic calcification identified in the left proximal internal carotid artery. IMPRESSION: 1. A 1.8 cm peripherally enhancing hypodensity identified in the left parotid gland likely abscess. Underlying hypodense mass is not completely excluded. There is moderate fat stranding identified about the left parotid and extending into the subcutaneous region likely parotitis/cellulitis. Electronically signed by: Augusto Moran MD (01/26/2018 2:30 PM) [id number]
[2018-01-26] MEDS ORDERED: VANCOMYCIN PER PHARMACY MC PRN (14:45)
[2018-01-26 14:51] LABS: BACTERIA,URINE 0 /HPF (0-FEW); HYALINE CASTS, URINE FEW /HPF; RBC,URINE 0 /HPF (0-2); WBC,URINE 0 /HPF (0-4)
[2018-01-26] MEDS ORDERED: VANCOMYCIN 2 GM in IV NORMAL SALINE 500ML BAG 500 ML IV ONE (15:00)
[2018-01-26] MEDS ORDERED: PIPERACILLIN/TAZOBACTAM 3.375 GM in IV NORMAL SALINE 50ML 50 ML IV ONE (15:15)
[2018-01-26 16:30] VITALS: BP 153/68
== END 2018-01-26 17:09 | disposition short-term general hospital (02) ==
LOC: ER 11:53
DX: L03.211 Cellulitis of face (principal); J44.9 Chronic obstructive pulmonary disease, unspecified; E11.9 Type 2 diabetes mellitus without complications; R53.1 Weakness; R05 Cough; M79.1 Myalgia; R09.89 Other specified symptoms and signs involving the circulatory and respiratory systems; R55 Syncope and collapse; R06.2 Wheezing; M27.8 Other specified diseases of jaws; Z87.11 Personal history of peptic ulcer disease
CPT/HCPCS: 36415; 70487; 71045; 80053; 81001; 83605; 85025; 87040; 94640; 96361; 96365; 96368; 99285; J2543; J3370; J7030; J7040; J7620; Q9967

== ENCOUNTER 2018-02-15 07:59 | Emergency (ER) | payer OTHER ==
[~2018-02-15] VITALS: Ht 165.1 cm; Wt 82.6 kg
[2018-02-15] MEDS ORDERED: IPRATRPIUM/ALBUTEROL 0.5/2.5MG 3 ML NEBU. NEB ONE (08:15)
[2018-02-15] MEDS ORDERED: predniSONE 10 MG TABLET PO ONE (08:15)
--- NOTE | 2018-02-15 08:28 | PHYS DOC ---
Past Medical History Past Medical History: Arthritis, COPD, Diabetes-Type II, GI Bleed, Liver Disease, P.U.D., Other Additional Past Medical Histor: peptic ulcer, HEP C IN PAST, LEGALLY BLIND IN RIGHT EYE Past Surgical History: Other Additional Past Surgical Histo: eye surgery, left lung repair surgery,BILAT WRIST Additional Information: 1 PACK/MONTH Alcohol Use: Occasionally Additional Information: "4 TIMES A MONTH" Drug Use: Cocaine, Marijuana Adult General Chief Complaint Chief Complaint: SHORTNESS OF BREATH HPI HPI Patient is a 67 year old male who presents with again having short of breath this morning but has had cough for last 3 weeks. Review of Systems Review of Systems Constitutional: Denies fever or chills [] Eyes: Denies change in visual acuity, redness, or eye pain [] HENT: Denies nasal congestion or sore throat [] Respiratory: Cough and shortness of breath [] Cardiovascular: Tightness GI: Denies abdominal pain, nausea, vomiting, bloody stools or diarrhea [] : Denies dysuria or hematuria [] Musculoskeletal: Denies back pain or joint pain [] Integument: Denies rash or skin lesions [] Neurologic: Denies headache, focal weakness or sensory changes [] Endocrine: Denies polyuria or polydipsia [] All other systems were reviewed and found to be within normal limits, except as documented in this note. Current Medications Current Medications Current Medications Medications (Trade) Dose Ordered Sig/Omaira Start Time Stop Time Status Last Admin Dose Admin Albuterol/ Ipratropium (Duoneb) 3 ml 1X ONCE 02/15/18 08:15 02/15/18 08:16 DC 02/15/18 08:27 3 ML Prednisone (Prednisone) 50 mg 1X ONCE 02/15/18 08:15 02/15/18 08:16 DC 02/15/18 08:29 50 MG Allergies Allergies Allergies Coded Allergies Type Severity Reaction Last Updated Verified No Known Drug Allergies 08/10/16 No Physical Exam Physical Exam Constitutional: Well developed, well nourished, no acute distress, non-toxic appearance. [] HENT: Normocephalic, atraumatic, bilateral external ears normal, oropharynx moist, no oral exudates, nose normal. [] Eyes: PERRLA, EOMI, conjunctiva normal, no discharge. [] Neck: Normal range of motion, no tenderness, supple, no stridor. [] Cardiovascular:Heart rate regular rhythm, no murmur [] Lungs & Thorax: Bilateral breath sounds diminished to auscultation [] Abdomen: Bowel sounds normal, soft, no tenderness, no masses, no pulsatile masses. [] Skin: Warm, dry, no erythema, no rash. [] Back: No tenderness, no CVA tenderness. [] Extremities: No tenderness, no cyanosis, no clubbing, ROM intact, no edema. [] Neurologic: Alert and oriented X 3, normal motor function, normal sensory function, no focal deficits noted. [] Psychologic: Affect normal, judgement normal, mood normal. [] Current Patient Data Vital Signs Vital Signs Date Time Temp Pulse Resp B/P (MAP) Pulse Ox O2 Delivery O2 Flow Rate FiO2 02/15/18 10:45 54 20 98/64 (75) 94 Room Air 02/15/18 08:08 98.2 98.2 Lab Values Laboratory Tests Test 02/15/18 08:25 02/15/18 09:28 White Blood Count 4.9 x10^3/uL (4.0-11.0) Red Blood Count 4.71 x10^6/uL (4.30-5.70) Hemoglobin 13.4 g/dL (13.0-17.5) Hematocrit 40.8 % (39.0-53.0) Mean Corpuscular Volume 87 fL (79-100) Mean Corpuscular Hemoglobin 29 pg (25-35) Mean Corpuscular Hemoglobin Concent 33 g/dL (31-37) Red Cell Distribution Width 15.9 % (11.5-14.5) H Platelet Count 204 x10^3/uL (140-400) Neutrophils (%) (Auto) 54 % (31-73) Lymphocytes (%) (Auto) 30 % (24-48) Monocytes (%) (Auto) 9 % (0-9) Eosinophils (%) (Auto) 6 % (0-3) H Basophils (%) (Auto) 1 % (0-3) Neutrophils # (Auto) 2.6 x10^3uL (1.8-7.7) Lymphocytes # (Auto) 1.5 x10^3/uL (1.0-4.8) Monocytes # (Auto) 0.5 x10^3/uL (0.0-1.1) Eosinophils # (Auto) 0.3 x10^3/uL (0.0-0.7) Basophils # (Auto) 0.1 x10^3/uL (0.0-0.2) Sodium Level 144 mmol/L (136-145) Potassium Level 4.4 mmol/L (3.5-5.1) Chloride Level 107 mmol/L (98-107) Carbon Dioxide Level 28 mmol/L (21-32) Anion Gap 9 (6-14) Blood Urea Nitrogen 10 mg/dL (8-26) Creatinine 1.1 mg/dL (0.7-1.3) Estimated GFR (Cockcroft-Gault) 81.3 Glucose Level 95 mg/dL (70-99) Calcium Level 9.1 mg/dL (8.5-10.1) Troponin I Quantitative < 0.017 ng/mL (0.000-0.055) FD-Sre-O-Type Natriuretic Peptide 61 pg/mL (0-124) Urine Collection Type Unknown Urine Color Yellow Urine Clarity Clear Urine pH 7.5 Urine Specific [place] 1.015 Urine Protein Negative mg/dL (NEG-TRACE) Urine Glucose (UA) Negative mg/dL (NEG) Urine Ketones (Stick) Negative mg/dL (NEG) Urine Blood Negative (NEG) Urine Nitrite Negative (NEG) Urine Bilirubin Negative (NEG) Urine Urobilinogen Dipstick 0.2 mg/dL (0.2 mg/dL) Urine Leukocyte Esterase Negative (NEG) Urine RBC 0 /HPF (0-2) Urine WBC Occ /HPF (0-4) Urine Squamous Epithelial Cells Occ /LPF Urine Bacteria 0 /HPF (0-FEW) Laboratory Tests 02/15/18 08:25 Laboratory Tests 02/15/18 08:25 EKG EKG Sinus rhythm and no STEMI Interpretation Time: [address] Wilhelm Radiology/Procedures Radiology/Procedures Chest xray Impressions: [facility] [address] [place] [address] IMAGING REPORT Signed PATIENT: TANYA JOHNSON ACCOUNT: [id number] : 1950 LOCATION: ER AGE: 67 SEX: M EXAM STATUS: REG ER ORD. PHYSICIAN: MIHAI KAT APRN REASON: shortness of breath PROCEDURE: CHEST PA & LATERAL CHEST PA LATERAL Clinical indications: chough, short of air COMPARISON: January 26, 2018. Findings: No acute lung infiltrate or pleural effusion or pulmonary edema or lung mass or pneumothorax is seen. The heart size, pulmonary vasculature, mediastinum and both rafa are unremarkable. The osseous structures appear intact. Impression: No acute radiographic abnormality is seen. Electronically signed by: Kimberly Damon MD (02/15/2018 8:51 AM) [facility] DICTATED and SIGNED BY: KIMBERLY DAMON MD DATE: 02/15/18 0849 Course & Med Decision Making Course & Med Decision Making Patient is a 67 year old male who presents with again having short of breath this morning but has had cough for last 3 weeks. Patient is tachypneic and speaks in short sentences. Afebrile. Skin is pink, warm and dry. Alert and oriented. Patient is unsure if he has been running a fever. Patient is 95% on room air. Lung sounds are diminished in all bases. Patient states he has been coughing up brown mucus. Abdomen is soft and nontender. Patient denies chest pain. Patient does have chest tightness. Patient states he does have a history of COPD, acute respiratory failure, arthritis, meningitis, sepsis, headaches. EKG shows Sinus Rhythm and no STEMI. No extremity edema. Vital signs are 98.2, 71, 24RR, 154/85, 95% RA. Chest xray shows no acute findings. Troponin is normal and the rest of blood work is unremarkable. Patient is breathing at 20 times a minute, and still satting at 95% on room air. Patient now speaks in full sentences but is still coughing up clear mucus. Patient states that he does feel better after using a breathing treatment in the ED. Patient states he does have a nebulizer at home that he uses. Patient is to continue using his nebulizer and to take prednisone for the next 4 days and doxycycline antibiotics. Patient also told that he needs to call his primary care today for continuation of care. Patient is told that if he becomes worse to return to the ED. Patient is stable and in no distress. Staff Physician Addendum: I was working in the ER during the course of this patient's visit. I was available for consultation as needed, but I was not directly involved in the care of this patient. [] Dragon Disclaimer Dragon Disclaimer This electronic medical record was generated, in whole or in part, using a voice recognition dictation system. Departure Departure Impression: Primary Impression: COPD with acute exacerbation Disposition: HOME, SELF-CARE Condition: STABLE Referrals: UNKNOWN PCP NAME (PCP) Patient Instructions: Chronic Obstructive Pulmonary Disease Exacerbation Additional Instructions: Call your doctor today to get a appointment for follow up care. Use your breathing treatments. Take medications as prescribed. Scripts Doxycycline Hyclate (DOXYCYCLINE HYCLATE) 100 Mg Tablet 1 TAB PO BID, #14 TAB Prov: MIHAI KAT APRN 02/15/18 Prednisone (PREDNISONE) 50 Mg Tablet 50 MG PO DAILY for 4 Days, #4 TAB Prov: MIHAI KAT APRN 02/15/18 MIHAI KAT APRN Feb 15, 2018 08:28 SANDRA WILHELM MD Feb 19, 2018 18:10
[2018-02-15 08:31] LABS: BASO # 0.1 x10^3/uL (0.0-0.2); BASO % 1 % (0-3); EOS # 0.3 x10^3/uL (0.0-0.7); EOS % 6 % (0-3); HEMATOCRIT 40.8 % (39.0-53.0); HEMOGLOBIN 13.4 g/dL (13.0-17.5); LYMPH # 1.5 x10^3/uL (1.0-4.8); LYMPH % 30 % (24-48); MEAN CORPUSCULAR HEMOGLOBIN 29 pg (25-35); MEAN CORPUSCULAR HGB CONC 33 g/dL (31-37); MEAN CORPUSCULAR VOLUME 87 fL (79-100); MONO # 0.5 x10^3/uL (0.0-1.1); MONO % 9 % (0-9); NEUT # 2.6 x10^3uL (1.8-7.7); NEUT % 54 % (31-73); PLATELET COUNT 204 x10^3/uL (140-400); RED BLOOD COUNT 4.71 x10^6/uL (4.30-5.70); RED CELL DISTRIBUTION WIDTH 15.9 % (11.5-14.5); WHITE BLOOD COUNT 4.9 x10^3/uL (4.0-11.0)
[2018-02-15 08:48] LABS: CALCIUM 9.1 mg/dL (8.5-10.1); CREATININE 1.1 mg/dL (0.7-1.3); GFR 81.3; POTASSIUM 4.4 mmol/L (3.5-5.1)
--- NOTE | 2018-02-15 08:54 | RAD ---
CHEST PA LATERAL Clinical indications: chough, short of air COMPARISON: January 26, 2018. Findings: No acute lung infiltrate or pleural effusion or pulmonary edema or lung mass or pneumothorax is seen. The heart size, pulmonary vasculature, mediastinum and both rafa are unremarkable. The osseous structures appear intact. Impression: No acute radiographic abnormality is seen. Electronically signed by: Jose Juan Damon MD (02/15/2018 8:51 AM) [facility]
--- NOTE | 2018-02-15 09:01 | EKG ---
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
[2018-02-15 09:52] LABS: BILIRUBIN,URINE NEGATIVE (NEG); CLARITY,URINE CLEAR; COLOR,URINE YELLOW; NITRITE,URINE NEGATIVE (NEG); PH,URINE 7.5; PROTEIN,URINE NEGATIVE (NEG-TRACE); UROBILINOGEN,URINE 0.2 mg/dL (0.2 mg/dL)
[2018-02-15 10:17] LABS: SQUAMOUS EPITHELIAL CELL,UR OCC /LPF
[2018-02-15 10:18] LABS: BACTERIA,URINE 0 /HPF (0-FEW); RBC,URINE 0 /HPF (0-2); WBC,URINE OCC /HPF (0-4)
[2018-02-15 10:45] VITALS: BP 98/64
[2018-02-15] MEDS ORDERED: DOXY100T PO (10:47)
[2018-02-15] MEDS ORDERED: PRED50TA PO (10:47)
== END 2018-02-15 11:13 | disposition home or self-care (01) ==
LOC: ER 07:59
DX: J44.1 Chronic obstructive pulmonary disease with (acute) exacerbation (principal); E11.9 Type 2 diabetes mellitus without complications; F17.210 Nicotine dependence, cigarettes, uncomplicated; F12.10 Cannabis abuse, uncomplicated
CPT/HCPCS: 36415; 71046; 80048; 81001; 83880; 84484; 85025; 93005; 94640; 99285; J7512; J7620

== ENCOUNTER → 2018-05-23 | Outpatient (CLI) | payer OTHER ==
[~2018-05-23] MED LIST changes: +DOXY100T PO; -HYDR-2762 PO; +HYDR-2765 PO; +HYDR-3164 PO; -HYDR-971 PO
--- NOTE | 2018-05-30 17:31 | EEG ---
DATE OF SERVICE: 05/23/2018 EEG NUMBER: OBJECTIVE: This is a 68-year-old male patient with history of seizure or seizure-like episodes. EEG was requested to evaluate seizure activity. METHODS: Twenty electrodes were applied according to the international 10-20 electrode placement system. EKG monitoring, hyperventilation, intermittent photic stimulation, monopolar and bipolar montages are routinely utilized. The record was obtained on a digital system with video monitoring. FINDINGS: 1. Background: The patient was recorded in the awake, drowsy, and sleep states. The overall background amplitude is 10-20 microvolts. A posterior dominant rhythm of 8-10 Hz is observed. 2. Abnormalities: No specific epileptiform discharge or electrographic seizure is seen. No focal or diffuse slowing. 3. Activation: Hyperventilation was performed with fair efforts and normal response. Intermittent photic stimulation was performed with photic driving. No specific epileptiform discharge or electrographic seizure induced by hyperventilation or intermittent photic stimulation. IMPRESSION: This EEG is a normal study for the awake, drowsy, and sleep states. No focal, lateralizing, specific epileptiform discharge or electrographic seizure is seen. GAL MART MD DR: SHELBY/terri JOB#: [id number] / [id number]
== END | disposition home or self-care (01) ==
LOC: RT 10:14
PROVIDERS: ATTEND Psychiatry & Neurology Neurology
DX: R56.9 Unspecified convulsions (principal)
CPT/HCPCS: 95816

== ENCOUNTER → 2018-05-23 | Outpatient (CLI) | payer OTHER ==
--- NOTE | 2018-05-23 15:15 | RAD ---
AP standing view of both knees Clinical indications: Painful degenerative joint disease of both knees. Right knee: There is moderate joint space narrowing and spurring and mild subchondral sclerosis of the lateral tibiofemoral joint compartment. No joint space narrowing of the medial tibiofemoral joint compartment is seen although there is minimal spurring of the medial tibial plateau. No acute fracture or dislocation or lytic process is seen. Left knee: There is mild degenerative joint space narrowing and spurring of the medial tibiofemoral joint compartment. There is minimal spurring without joint space narrowing of the lateral tibial femoral joint compartment. No acute fracture or dislocation or lytic process is seen. IMPRESSION: Primary degenerative osteoarthritis of both knees most severely involving the lateral tibial femoral joint compartment of the right knee. Electronically signed by: Jose Juan Damon MD (05/23/2018 3:10 PM) [id number]
--- NOTE | 2018-05-23 15:37 | RAD ---
MRI Lumbar Spine without contrast History: Chronic low back pain, degenerative disc disease of the lumbar spine Technique: Multiplanar, multi sequential noncontrast MR imaging was performed of the lumbar spine. Comparison: None Findings: Lumbar vertebral body stature is overall maintained. There is minimal posterior subluxation L3 relative to L4 and L5 relative to S1. There is fairly advanced degenerative disc disease L1-L2 through L4-5 and to lesser degree at L5-S1. There is variable multilevel degenerative endplate change at L1-L2 to L5-S1, greatest at L3-4 and L4-5. There is also mild endplate edema greatest at L3-4 and very minimally at other levels likely reactive/degenerative in etiology. There is a somewhat lobulated cystic focus in the sacral spinal canal centered near S3 about 2.4 cm longitudinal by 1.2 cm AP more likely due to Tarlov cyst. L1-L2: There is minimal disc osteophyte complex and bulge. There is mild buckling of the ligamentum flavum. There is mild narrowing of the far lateral recesses bilaterally, central canal adequate. Neural foramina are adequate. L2-L3: There is negligible disc osteophyte complex. There is mild buckling of the ligamentum flavum. Neural foramina are overall adequate. There is very mild narrowing of the far right lateral recess. L3-L4: There is minimal disc osteophyte complex and bulge. There is probable superimposed shallow protrusion in the right extraforaminal region. There is [id number] buckling of the ligamentum flavum. There is mild prominence of posterior epidural fat. Combination of findings results in overall mild spinal stenosis including narrowing of the far lateral recesses bilaterally. Left neural foramen is adequate. There is mild inferior narrowing of the right neural foramen, bulge/small protrusion near the undersurface of proximal extraforaminal right L3 nerve root without significant displacement. L4-L5: There is mild to moderate buckling of the ligamentum flavum. There is disc osteophyte complex and bulge. Combination of findings results in overall moderate spinal stenosis including narrowing of the far lateral recesses bilaterally somewhat greater on the left. There is mild narrowing of the right neural foramen, disc osteophyte complex near the extraforaminal right L4 nerve root without displacement. There is also mild narrowing of the left neural foramen, bulge near the undersurface of the proximal extraforaminal left L4 nerve root without displacement. L5-S1: There is minimal disc osteophyte complex and bulge. There is mild buckling of the ligamentum flavum. There is mild narrowing of the far left lateral recess. Neural foramina are overall adequate. Impression: 1. There is moderate spinal stenosis including narrowing of the far lateral recesses greater on the left at L4-5, overall mild spinal stenosis L3-4, also minimal narrowing of the far lateral recesses on the left at L5-S1 and on the right at L2-3 as described. 2. There is mild neural foramina compromise bilaterally at L4-5 and on the right at L3-4. 3. There is fairly advanced degenerative disc disease L1-L2 through L4-5 and to a lesser degree at L5-S1, variable degenerative endplate change and mild endplate edema. 4. 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 Electronically signed by: Giacomo Conner MD (05/23/2018 3:32 PM) [id number]
== END | disposition home or self-care (01) ==
LOC: MRI 11:48
PROVIDERS: ATTEND Physical Medicine & Rehabilitation
DX: M17.0 Bilateral primary osteoarthritis of knee (principal); M76.892 Other specified enthesopathies of left lower limb, excluding foot; M76.891 Other specified enthesopathies of right lower limb, excluding foot; M48.061 Spinal stenosis, lumbar region without neurogenic claudication; M51.36 Other intervertebral disc degeneration, lumbar region; M25.78 Osteophyte, vertebrae; M48.07 Spinal stenosis, lumbosacral region; R60.0 Localized edema
CPT/HCPCS: 72148; 73565

== ENCOUNTER 2018-10-02 11:51 | Emergency (ER) | payer MEDICARE, OTHER ==
[~2018-10-02] VITALS: Ht 167.6 cm; Wt 79.4 kg
[~2018-10-02 11:51] MED LIST changes: -HYDR-79 PO; +HYDROCODONE-IB1 EAC3 PO
[2018-10-02] MEDS ORDERED: IPRATRPIUM/ALBUTEROL 0.5/2.5MG 3 ML NEBU. NEB ONE (12:15)
[2018-10-02 12:20] LABS: BASO % 1 % (0-3); EOS # 0.1 x10^3/uL (0.0-0.7); EOS % 1 % (0-3); HEMATOCRIT 42.7 % (39.0-53.0); LYMPH # 0.7 x10^3/uL (1.0-4.8); LYMPH % 13 % (24-48); MEAN CORPUSCULAR HEMOGLOBIN 29 pg (25-35); MEAN CORPUSCULAR HGB CONC 33 g/dL (31-37); MEAN CORPUSCULAR VOLUME 89 fL (79-100); MONO # 0.3 x10^3/uL (0.0-1.1); MONO % 6 % (0-9); NEUT # 4.4 x10^3uL (1.8-7.7); NEUT % 79 % (31-73); PLATELET COUNT 152 x10^3/uL (140-400); RED BLOOD COUNT 4.81 x10^6/uL (4.30-5.70); RED CELL DISTRIBUTION WIDTH 15.4 % (11.5-14.5); WHITE BLOOD COUNT 5.6 x10^3/uL (4.0-11.0)
[2018-10-02] MEDS ORDERED: methylPREDNISolone SOD SUCC PF 125 MG/2 ML VIAL. IV ONE (12:30)
[2018-10-02] MEDS ORDERED: IV NORMAL SALINE 1000ML BAG 1,000 ML IV ONE (12:30)
[2018-10-02 12:39] LABS: CREATININE 1.1 mg/dL (0.7-1.3); POTASSIUM 3.6 mmol/L (3.5-5.1)
--- NOTE | 2018-10-02 12:42 | PHYS DOC ---
Past Medical History Past Medical History: COPD, Seizure Additional Past Medical Histor: peptic ulcer, HEP C IN PAST, LEGALLY BLIND IN RIGHT EYE Past Surgical History: Other Additional Past Surgical Histo: Eye surgeries, hand surgeries Alcohol Use: Heavy Additional Information: Patient reports heavy alcohol consumption (1.5 pints of whiskey and 10-12 beers this weekend) to cope with stress associated with bills and financial situation. Lives alone. Denies desire to harm self or others. Drug Use: Marijuana Adult General Chief Complaint Chief Complaint: SEIZURE HPI HPI Patient is a 68 year old who brought in by EMS because of a seizure. Patient states he has history of seizure and his last seizure was about 4 or 5 months ago. Patient complaining of nasal congestion and productive cough with clear sputum for the last couple days and today had 1 episode of cough and shortness of breath while he was at [employer]. Bystanders stated the patient had 30 seconds seizure activity with generalized shaking without fall. EMS reported that patient did not have postictal condition and had frequent coughs and have concern for vasovagal loss of consciousness because of cough. Patient denies missing Keppra but states recently he is under stress because of bills and financial problems and using marijuana and also drinking alcohol and had 1.5 pint of whiskey that is not his usual. Patient denies suicidal and homicidal ideation. Review of Systems Review of Systems Constitutional: Denies fever or chills [] Eyes: Denies change in visual acuity, redness, or eye pain [] HENT: Reports nasal congestion Respiratory: Reports cough and shortness of breath Cardiovascular: No additional information not addressed in HPI [] GI: Denies abdominal pain, nausea, vomiting, bloody stools or diarrhea [] : Denies dysuria or hematuria [] Musculoskeletal: Denies back pain or joint pain [] Integument: Denies rash or skin lesions [] Neurologic: Denies headache, focal weakness or sensory changes [] Endocrine: Denies polyuria or polydipsia [] All other systems were reviewed and found to be within normal limits, except as documented in this note. Current Medications Current Medications Current Medications Medications (Trade) Dose Ordered Sig/Omaira Start Time Stop Time Status Last Admin Dose Admin Albuterol/ Ipratropium (Duoneb) 3 ml 1X ONCE 10/02/18 12:15 10/02/18 12:16 DC 10/02/18 12:24 3 ML Ceftriaxone Sodium (Rocephin) 1 gm 1X ONCE 10/02/18 13:45 10/02/18 13:46 DC 10/02/18 13:50 1 GM Methylprednisolone Sodium Succinate (SOLU-Medrol 125MG VIAL) 125 mg 1X ONCE 10/02/18 12:30 10/02/18 12:31 DC 10/02/18 12:32 125 MG Sodium Chloride 1,000 ml @ 1,000 mls/hr 1X ONCE 10/02/18 12:30 10/02/18 13:29 DC 10/02/18 12:34 1,000 MLS/HR Allergies Allergies Allergies Coded Allergies Type Severity Reaction Last Updated Verified No Known Drug Allergies 08/10/16 No Physical Exam Physical Exam Constitutional: Well developed, well nourished, mild distress, non-toxic appearance. [] HENT: Normocephalic, atraumatic, bilateral external ears normal, oropharynx moist, no oral exudates, nasal congestion Eyes: PERRLA, EOMI, conjunctiva normal, no discharge. [] Neck: Normal range of motion, no tenderness, supple, no stridor. [] Cardiovascular:Heart rate regular rhythm, no murmur [] Lungs & Thorax: Bilateral breath sounds clear to auscultation [] Abdomen: Bowel sounds normal, soft, no tenderness, no masses, no pulsatile masses. [] Skin: Warm, dry, no erythema, no rash. [] Back: No tenderness, no CVA tenderness. [] Extremities: No tenderness, no cyanosis, no clubbing, ROM intact, no edema. [] Neurologic: Alert and oriented X 3, normal motor function, normal sensory func tion, no focal deficits noted. [] Psychologic: Affect normal, judgement normal, mood normal. [] Current Patient Data Vital Signs Vital Signs Date Time Temp Pulse Resp B/P (MAP) Pulse Ox O2 Delivery O2 Flow Rate FiO2 10/02/18 15:32 66 16 96 10/02/18 12:25 Room Air 10/02/18 12:00 97.5 124/63 (83) 97.5 Lab Values Laboratory Tests Test 10/02/18 11:58 10/02/18 13:32 10/02/18 13:45 10/02/18 13:58 White Blood Count 5.6 x10^3/uL (4.0-11.0) Red Blood Count 4.81 x10^6/uL (4.30-5.70) Hemoglobin 14.0 g/dL (13.0-17.5) Hematocrit 42.7 % (39.0-53.0) Mean Corpuscular Volume 89 fL (79-100) Mean Corpuscular Hemoglobin 29 pg (25-35) Mean Corpuscular Hemoglobin Concent 33 g/dL (31-37) Red Cell Distribution Width 15.4 % (11.5-14.5) H Platelet Count 152 x10^3/uL (140-400) Neutrophils (%) (Auto) 79 % (31-73) H Lymphocytes (%) (Auto) 13 % (24-48) L Monocytes (%) (Auto) 6 % (0-9) Eosinophils (%) (Auto) 1 % (0-3) Basophils (%) (Auto) 1 % (0-3) Neutrophils # (Auto) 4.4 x10^3uL (1.8-7.7) Lymphocytes # (Auto) 0.7 x10^3/uL (1.0-4.8) L Monocytes # (Auto) 0.3 x10^3/uL (0.0-1.1) Eosinophils # (Auto) 0.1 x10^3/uL (0.0-0.7) Basophils # (Auto) 0.0 x10^3/uL (0.0-0.2) Sodium Level 142 mmol/L (136-145) Potassium Level 3.6 mmol/L (3.5-5.1) Chloride Level 104 mmol/L (98-107) Carbon Dioxide Level 25 mmol/L (21-32) Anion Gap 13 (6-14) Blood Urea Nitrogen 13 mg/dL (8-26) Creatinine 1.1 mg/dL (0.7-1.3) Estimated GFR (Cockcroft-Gault) 81.0 BUN/Creatinine Ratio 12 (6-20) Glucose Level 165 mg/dL (70-99) H Lactic Acid Level 3.0 mmol/L (0.4-2.0) H 1.4 mmol/L (0.4-2.0) Calcium Level 9.0 mg/dL (8.5-10.1) Total Bilirubin 0.6 mg/dL (0.2-1.0) Aspartate Amino Transferase (AST) 24 U/L (15-37) Alanine Aminotransferase (ALT) 22 U/L (16-63) Alkaline Phosphatase 63 U/L (46-116) Troponin I Quantitative < 0.017 ng/mL (0.000-0.055) TJ-Vww-E-Type Natriuretic Peptide 130 pg/mL (0-124) H Total Protein 7.2 g/dL (6.4-8.2) Albumin 3.6 g/dL (3.4-5.0) Albumin/Globulin Ratio 1.0 (1.0-1.7) Ethyl Alcohol Level < 10 mg/dL (0-10) Urine Collection Type Unknown Urine Color Yellow Urine Clarity Clear Urine pH 6.0 Urine Specific [place] 1.020 Urine Protein 30 mg/dL (NEG-TRACE) Urine Glucose (UA) Negative mg/dL (NEG) Urine Ketones (Stick) Trace mg/dL (NEG) Urine Blood Negative (NEG) Urine Nitrite Negative (NEG) Urine Bilirubin Negative (NEG) Urine Urobilinogen Dipstick 1.0 mg/dL (0.2 mg/dL) Urine Leukocyte Esterase Negative (NEG) Urine RBC 0 /HPF (0-2) Urine WBC Rare /HPF (0-4) Urine Bacteria 0 /HPF (0-FEW) Urine Mucus Slight /LPF Urine Opiates Screen Neg (NEG) Urine Methadone Screen Neg (NEG) Urine Barbiturates Neg (NEG) Urine Phencyclidine Screen Neg (NEG) Urine Amphetamine/Methamphetamine Neg (NEG) Urine Benzodiazepines Screen Neg (NEG) Urine Cocaine Screen Pos (NEG) Urine Cannabinoids Screen Pos (NEG) Urine Ethyl Alcohol Neg (NEG) Laboratory Tests 10/02/18 11:58 Laboratory Tests 10/02/18 11:58 EKG EKG EKG interpreted by me. EKG at 1157 showed sinus rhythm at rate of 63 beats PVCs, abnormal left axis deviation, left anterior fascicular block, nonspecific intraventricular block, no acute ST and T-wave abnormalities. Radiology/Procedures Radiology/Procedures [facility] [address] [place] [address] IMAGING REPORT Signed PATIENT: TANYA JOHNSON ACCOUNT: [id number] : 1950 LOCATION: ER AGE: 68 SEX: M EXAM STATUS: PRE ER ORD. PHYSICIAN: GEMINI ROBLES MD REASON: seizure and cough PROCEDURE: CHEST PA & LATERAL Examination: CHEST PA LATERAL Technique: PA and lateral views of the chest were obtained. Clinical History: seizure and cough Comparison: None. Findings: The heart and pulmonary vasculature appear within normal limits. The lungs are clear. The pleural margins are clear. Impression: No acute chest process is seen. DICTATED and SIGNED BY: TOBY MARIA MD DATE: 10/02/18 1243 Course & Med Decision Making Course & Med Decision Making Pertinent Labs and Imaging studies reviewed. (See chart for details) Evaluation of patient in ER showed 68-year-old male patient brought in by EMS because of seizure. Patient has history of seizure and currently to alcohol and marijuana. Patient had positive days for cocaine and marijuana. Patient had elevation of lactic acid at 3.0 without leukocytosis, fever, tachycardia, hypotension . Repeat lactic acid was 1.4. Patient treated with Rocephin with diagnosis of COPD exacerbation and was advised to quit using drugs and alcohol and smoking and follow with his primary care physician. Dragon Disclaimer Dragon Disclaimer This electronic medical record was generated, in whole or in part, using a voice recognition dictation system. Departure Departure Impression: Primary Impression: COPD with acute exacerbation Additional Impressions: Cocaine abuse Seizure Marijuana abuse Alcohol abuse Tobacco abuse Tobacco abuse counseling Disposition: 01 HOME, SELF-CARE (at 1512) Condition: IMPROVED Referrals: KELSY PAUL DO (PCP) Patient Instructions: Alcohol Problems, Chronic Obstructive Pulmonary Disease Exacerbation, Cocaine Abuse-Brief, Seizure Disorder, Child, Generalized Tonic- Clonic, Smoking Cessation, Tips For Success Additional Instructions: Drink plenty of liquids Follow-up with your primary care physician in 3-5 days Return to ER if not getting better Continue current medication Scripts Methylprednisolone (MEDROL) 4 Mg Tab.ds.pk 1 PKG PO UD for inflammation, #1 PKG Prov: GEMINI ROBLES MD 10/02/18 Doxycycline Hyclate (DOXYCYCLINE HYCLATE) 100 Mg Capsule 1 CAP PO BID, #14 CAP Prov: GEMINI ROBLES MD 10/02/18 Problem Qualifiers GEMINI ROBLES MD Oct 02, 2018 12:42
[2018-10-02 12:44] LABS: ALBUMIN 3.6 g/dL (3.4-5.0); TOTAL BILIRUBIN 0.6 mg/dL (0.2-1.0); TOTAL PROTEIN 7.2 g/dL (6.4-8.2)
--- NOTE | 2018-10-02 12:47 | RAD ---
Examination: CHEST PA LATERAL Technique: PA and lateral views of the chest were obtained. Clinical History: seizure and cough Comparison: None. Findings: The heart and pulmonary vasculature appear within normal limits. The lungs are clear. The pleural margins are clear. Impression: No acute chest process is seen.
--- NOTE | 2018-10-02 13:24 | EKG ---
[facility] [address] [place] [address] Test Date: 2018-10-02 Test Time: 11:57:10 Pat Name: TANYA JOHNSON Department: Room: Gender: M Vulnerability Assessment Analyst: : 1950 Requested By: GEMINI ROBLES Order Number: [id number] Reading MD: Measurements Intervals [place] Rate: 63 P: 66 IN: 146 QRS: -74 QRSD: 128 T: 34 QT: 468 QTc: 482 Interpretive Statements SINUS RHYTHM VENTRICULAR PREMATURE COMPLEX(ES) ABNORMAL LEFT AXIS DEVIATION S1,S2,S3 PATTERN LEFT ANTERIOR FASCICULAR BLOCK NON SPECIFIC INTRAVENTRICULAR BLOCK QRS(T) CONTOUR ABNORMALITY CONSIDER ANTEROSEPTAL MYOCARDIAL DAMAGE ABNORMAL ECG RI6.01 No previous ECG available for comparison
[2018-10-02] MEDS ORDERED: cefTRIAXone IV Push 1 GM VIAL. IVP ONE (13:45)
[2018-10-02 14:08] LABS: BILIRUBIN,URINE NEGATIVE (NEG); CLARITY,URINE CLEAR; COLOR,URINE YELLOW; NITRITE,URINE NEGATIVE (NEG); PROTEIN,URINE 30 mg/dL (NEG-TRACE)
[2018-10-02 14:18] LABS: BARBITURATES NEG (NEG); BENZODIAZEPINES NEG (NEG); CANNABINOIDS POS (NEG); COCAINE POS (NEG); METHADONE NEG (NEG); OPIATES NEG (NEG); PHENCYCLIDINE NEG (NEG)
[2018-10-02 14:21] LABS: AMPHETAMINE/METHAMPHETAMINE NEG (NEG)
[2018-10-02 14:22] LABS: BACTERIA,URINE 0 /HPF (0-FEW); RBC,URINE 0 /HPF (0-2); WBC,URINE RARE /HPF (0-4)
[2018-10-02] MEDS ORDERED: DOXY100C2 PO (15:14)
[2018-10-02] MEDS ORDERED: METH4TAB2 PO (15:14)
[2018-10-02 15:32] VITALS: BP 112/60
== END 2018-10-02 15:33 | disposition home or self-care (01) ==
LOC: ER 11:51
DX: J44.1 Chronic obstructive pulmonary disease with (acute) exacerbation (principal); R56.9 Unspecified convulsions; F12.10 Cannabis abuse, uncomplicated; F14.10 Cocaine abuse, uncomplicated; F10.20 Alcohol dependence, uncomplicated; Y90.0 Blood alcohol level of less than 20 mg/100 ml; Z72.0 Tobacco use; Z71.6 Tobacco abuse counseling
CPT/HCPCS: 36415; 71046; 80053; 80307; 81001; 83605; 83880; 84484; 85025; 87040; 93005; 94640; 96374; 96375; 99285; G0480; J0696; J2930; J7030; J7620

== ENCOUNTER → 2018-10-07 | Outpatient (CLI) | payer MEDICARE, OTHER ==
[2018-10-02 15:32] VITALS: BP 112/60
[~2018-10-07] MED LIST changes: +DOXY100C2 PO
--- NOTE | 2018-10-12 12:14 | EEG ---
DATE OF SERVICE: 10/07/2018 EEG NUMBER: [id number] OBJECTIVE: This is a 68-year-old -[place] male patient with history of seizure. EEG was requested to evaluate seizure activity. METHODS: Twenty electrodes were applied according to the international 10-20 electrode placement system. EKG monitoring, hyperventilation, intermittent photic stimulation, monopolar and bipolar montages are routinely utilized. The record was obtained on a digital system with video monitoring. FINDINGS: 1. Background: The patient was recorded in the awake, drowsy, and sleep states. The overall background amplitude is 10-20 microvolts. A posterior dominant rhythm of 8-10 Hz is observed. 2. Abnormalities: No specific epileptiform discharge or electrographic seizure is seen. No focal or diffuse slowing. 3. Activation: Hyperventilation was performed with good efforts and normal response. Intermittent photic stimulation was performed with photic driving. No specific epileptiform discharge or electrographic seizure induced by hyperventilation or intermittent photic stimulation. IMPRESSION: This EEG is a normal study for the awake, drowsy, and sleep states. No focal, lateralizing, specific epileptiform discharge or electrographic seizure is seen. GAL MART MD DR: SHELBY/terri JOB#: [id number] / [id number]
== END | disposition home or self-care (01) ==
LOC: RT 08:48
PROVIDERS: ATTEND Psychiatry & Neurology Neurology
DX: R56.9 Unspecified convulsions (principal)
CPT/HCPCS: 95816

== ENCOUNTER 2019-01-23 11:10 | Inpatient (IN) | payer MEDICARE, OTHER ==
[~2019-01-23] VITALS: Ht 170.2 cm; Wt 78.6 kg
[~2019-01-23 11:10] MED LIST changes: +CYAN-25 PO; -CYAN10005 PO
[2019-01-23] MEDS ORDERED: methylPREDNISolone SOD SUCC PF 125 MG/2 ML VIAL. IV ONE (11:30)
[2019-01-23] MEDS ORDERED: IPRATRPIUM/ALBUTEROL 0.5/2.5MG 3 ML NEBU. NEB ONE (11:30)
[2019-01-23 11:39] LABS: BASO % 1 % (0-3); EOS # 0.2 x10^3/uL (0.0-0.7); EOS % 4 % (0-3); HEMATOCRIT 44.9 % (39.0-53.0); LYMPH % 18 % (24-48); MEAN CORPUSCULAR HEMOGLOBIN 30 pg (25-35); MEAN CORPUSCULAR HGB CONC 33 g/dL (31-37); MEAN CORPUSCULAR VOLUME 89 fL (79-100); MONO # 0.5 x10^3/uL (0.0-1.1); MONO % 9 % (0-9); NEUT # 3.8 x10^3/uL (1.8-7.7); NEUT % 69 % (31-73); PLATELET COUNT 151 x10^3/uL (140-400); RED BLOOD COUNT 5.03 x10^6/uL (4.30-5.70); RED CELL DISTRIBUTION WIDTH 15.1 % (11.5-14.5); WHITE BLOOD COUNT 5.6 x10^3/uL (4.0-11.0)
--- NOTE | 2019-01-23 11:49 | PHYS DOC ---
Past Medical History Past Medical History: COPD, Seizure Additional Past Medical Histor: peptic ulcer, HEP C IN PAST, LEGALLY BLIND IN RIGHT EYE Past Surgical History: Other Additional Past Surgical Histo: Eye surgeries, hand surgeries Alcohol Use: Heavy Drug Use: Marijuana Adult General Chief Complaint Chief Complaint: SHORTNESS OF BREATH [facility] HPI Patient is a 68 year old male with history of COPD, seizures, who presents to the ED today complaining of shortness of breath as well as nasal congestion that began today. Patient states he went to the PCPs office and was sent to the ED to be evaluated. Patient denies any chest pain. He states he is a current smoker. Patient came to the ED via EMS, he was at the doctor's office for the same complaint and was sent to the ED. PCP Dr. Fabiola Trujillo Review of Systems Review of Systems Constitutional: Denies fever or chills [] Eyes: Denies change in visual acuity, redness, or eye pain [] HENT: Reports nasal congestion, denies sore throat [] Respiratory: Reports shortness of breath. Denies cough Cardiovascular: No additional information not addressed in HPI [] GI: Denies abdominal pain, nausea, vomiting, bloody stools or diarrhea [] : Denies dysuria or hematuria [] Musculoskeletal: Denies back pain or joint pain [] Integument: Denies rash or skin lesions [] Neurologic: Denies headache, focal weakness or sensory changes [] All other systems were reviewed and found to be within normal limits, except as documented in this note. Current Medications Current Medications Current Medications Medications (Trade) Dose Ordered Sig/Omaira Start Time Stop Time Status Last Admin Dose Admin Albuterol/ Ipratropium (Duoneb) 3 ml 1X ONCE 01/23/19 11:30 01/23/19 11:31 DC 01/23/19 11:39 3 ML Diltiazem HCl (Cardizem Iv Push) 10 mg 1X ONCE 01/23/19 12:00 01/23/19 12:01 DC 01/23/19 12:27 10 MG Methylprednisolone Sodium Succinate (SOLU-Medrol 125MG VIAL) 125 mg 1X ONCE 01/23/19 11:30 01/23/19 11:31 DC 01/23/19 11:52 125 MG Allergies Allergies Allergies Coded Allergies Type Severity Reaction Last Updated Verified No Known Drug Allergies 08/10/16 No Physical Exam Physical Exam Constitutional: Well developed, well nourished, no acute distress, non-toxic appearance. [] HENT: Normocephalic, atraumatic, bilateral external ears normal, oropharynx moist, no oral exudates, nose normal. [] Eyes: Left eye exam. PERRLA, EOMI, conjunctiva normal, no discharge. Right eye is blind Neck: Normal range of motion, no tenderness, supple, no stridor. [] Cardiovascular:Heart rate regular rhythm, no murmur [] Lungs & Thorax: Bilateral breath sounds clear to auscultation [] Abdomen: Bowel sounds normal, soft, no tenderness, no masses, no pulsatile masses. [] Skin: Warm, dry, no erythema, no rash. [] Back: No tenderness, no CVA tenderness. [] Extremities: No tenderness, no cyanosis, no clubbing, ROM intact, no edema. [] Neurologic: Alert and oriented X 3, normal motor function, normal sensory function, no focal deficits noted. [] Psychologic: Affect normal, judgement normal, mood normal. [] Current Patient Data Vital Signs Vital Signs Date Time Temp Pulse Resp B/P (MAP) Pulse Ox O2 Delivery O2 Flow Rate FiO2 01/23/19 13:42 88 18 102/72 (82) 95 Room Air 01/23/19 11:10 98.1 98.1 Lab Values Laboratory Tests Test 01/23/19 11:24 White Blood Count 5.6 x10^3/uL (4.0-11.0) Red Blood Count 5.03 x10^6/uL (4.30-5.70) Hemoglobin 15.0 g/dL (13.0-17.5) Hematocrit 44.9 % (39.0-53.0) Mean Corpuscular Volume 89 fL (79-100) Mean Corpuscular Hemoglobin 30 pg (25-35) Mean Corpuscular Hemoglobin Concent 33 g/dL (31-37) Red Cell Distribution Width 15.1 % (11.5-14.5) H Platelet Count 151 x10^3/uL (140-400) Neutrophils (%) (Auto) 69 % (31-73) Lymphocytes (%) (Auto) 18 % (24-48) L Monocytes (%) (Auto) 9 % (0-9) Eosinophils (%) (Auto) 4 % (0-3) H Basophils (%) (Auto) 1 % (0-3) Neutrophils # (Auto) 3.8 x10^3/uL (1.8-7.7) Lymphocytes # (Auto) 1.0 x10^3/uL (1.0-4.8) Monocytes # (Auto) 0.5 x10^3/uL (0.0-1.1) Eosinophils # (Auto) 0.2 x10^3/uL (0.0-0.7) Basophils # (Auto) 0.0 x10^3/uL (0.0-0.2) Prothrombin Time 14.0 SEC (11.7-14.0) Prothrombin Time INR 1.1 (0.8-1.1) Sodium Level 142 mmol/L (136-145) Potassium Level 4.1 mmol/L (3.5-5.1) Chloride Level 107 mmol/L (98-107) Carbon Dioxide Level 27 mmol/L (21-32) Anion Gap 8 (6-14) Blood Urea Nitrogen 18 mg/dL (8-26) Creatinine 1.4 mg/dL (0.7-1.3) H Estimated GFR (Cockcroft-Gault) 61.4 BUN/Creatinine Ratio 13 (6-20) Glucose Level 110 mg/dL (70-99) H Lactic Acid Level 1.6 mmol/L (0.4-2.0) Calcium Level 8.9 mg/dL (8.5-10.1) Magnesium Level 2.1 mg/dL (1.8-2.4) Total Bilirubin 0.5 mg/dL (0.2-1.0) Aspartate Amino Transferase (AST) 21 U/L (15-37) Alanine Aminotransferase (ALT) 18 U/L (16-63) Alkaline Phosphatase 76 U/L (46-116) Creatine Kinase 258 U/L (39-308) Creatine Kinase MB (Mass) 3.6 ng/mL (0.0-3.6) Creatine Kinase MB Relative Index 1.4 % (0-4) Troponin I Quantitative < 0.017 ng/mL (0.000-0.055) GR-Oos-C-Type Natriuretic Peptide 212 pg/mL (0-124) H Total Protein 6.8 g/dL (6.4-8.2) Albumin 3.5 g/dL (3.4-5.0) Albumin/Globulin Ratio 1.1 (1.0-1.7) Thyroid Stimulating Hormone (TSH) 2.041 uIU/mL (0.358-3.74) Laboratory Tests 01/23/19 11:24 Laboratory Tests 01/23/19 11:24 EKG EKG 11:[address] Gloria Gale HR 107 no RVR no STEMI[] Radiology/Procedures Radiology/Procedures PROCEDURE: PORTABLE CHEST 1V Single view of the chest. 01/23/2019 11:26 AM Indication: Shortness of breath Comparison: chest radiograph October 02, 2018 Findings: Lordotic projection noted. No pneumothorax or pleural effusion is identified. Heart size is within normal limits. No focal consolidative infiltrate is seen. Emphysematous changes again noted. Healed left-sided rib fracture noted. IMPRESSION: 1. No radiographic evidence of acute cardiopulmonary process 2. Emphysematous changes, grossly stable Electronically signed by: Harmeet Pina MD (01/23/2019 11:57 AM) [facility] DICTATED and SIGNED BY: HARMEET PINA MD DATE: 01/23/19 1157 []PROCEDURE: CT ANGIOGRAPHY CHEST Examination: CT ANGIOGRAPHY CHEST History: Shortness of breath Comparison/Correlation: 02/04/2017 CTA of the chest Findings: Axial images of chest were obtained following IV contrast according to pulmonary arteriography protocol. Sagittal and coronal reformatted images were provided. Maximum intensity projection images were provided. Pulmonary arterial vasculature is normal with no thromboembolic disease. Extensive emphysematous involvement of the lung chau is noted. [place] dependent atelectasis is present. No suspicious infiltrate. No enlarged thoracic lymph nodes. Nonenlarged superior mediastinal lymph nodes are stable. Partially visualized upper abdomen is unremarkable. Thoracic aorta is unremarkable for the patient's age. Bony structures are unremarkable. Impression: No pulmonary arterial thromboembolic disease. No infiltrate. PQRS Compliance Statement: One or more of the following individualized dose reduction techniques were utilized for this examination: 1. Automated exposure control 2. Adjustment of the mA and/or kV according to patient size 3. Use of iterative reconstruction technique Electronically signed by: Kirby Duncan MD (01/23/2019 2:35 PM) [facility] DICTATED and SIGNED BY: KIRBY DUNCAN MD DATE: 01/23/19 1435 Course & Med Decision Making Course & Med Decision Making Pertinent Labs and Imaging studies reviewed. (See chart for details) This is a 68-year-old male patient presenting to the ED today with shortness of breath as well as nasal congestion that began today. Patient arrives in the ED, first EKG noted for A. fib on further inquiry patient states he has been informed he has A. fib but he was not put on any medications. The paperwork he has from the doctor's office has not information showing patient has history of A. fib. Patient was given Cardizem IV push. Heart rate seemed to have stabilized <100 . CBC, troponin, CTA chest are negative for any acute findings CMP with creatinine of 1.4 1837 spoke with [facility] PILOT CONTROL OPERATOR HELPER Patient wanted to be discharged to home. Considering I do not have any confir mation whether this A. fib is new and not contacted the PCP, the PCP requested we try and admit patient if he is willing otherwise he has to f/u with PCP Patient accepted to be admitted. Dragon Disclaimer Dragon Disclaimer This electronic medical record was generated, in whole or in part, using a voice recognition dictation system. Departure Departure Impression: Primary Impression: A-fib Additional Impressions: COPD with acute exacerbation Shortness of breath Disposition: ADMITTED INPATIENT Condition: STABLE Referrals: FABIOLA TRUJILLO MD (PCP) Problem Qualifiers Primary Impression: A-fib Atrial fibrillation type: unspecified Qualified Codes: I48.91 - Unspecified atrial fibrillation SILKE GRAHAM APRN Jan 23, 2019 11:49
[2019-01-23 11:51] LABS: CALCIUM 8.9 mg/dL (8.5-10.1); CREATININE 1.4 mg/dL (0.7-1.3); GFR 61.4; POTASSIUM 4.1 mmol/L (3.5-5.1)
[2019-01-23 11:57] LABS: ALBUMIN 3.5 g/dL (3.4-5.0); ALBUMIN/GLOBULIN RATIO 1.1 (1.0-1.7); MAGNESIUM 2.1 mg/dL (1.8-2.4); TOTAL BILIRUBIN 0.5 mg/dL (0.2-1.0); TOTAL PROTEIN 6.8 g/dL (6.4-8.2)
[2019-01-23] MEDS ORDERED: dilTIAZem IV PUSH 25 MG/5 ML VIAL IVP ONE ×2 (12:00→15:45)
--- NOTE | 2019-01-23 12:00 | RAD ---
Single view of the chest. 01/23/2019 11:26 AM Indication: Shortness of breath Comparison: chest radiograph October 02, 2018 Findings: Lordotic projection noted. No pneumothorax or pleural effusion is identified. Heart size is within normal limits. No focal consolidative infiltrate is seen. Emphysematous changes again noted. Healed left-sided rib fracture noted. IMPRESSION: 1. No radiographic evidence of acute cardiopulmonary process 2. Emphysematous changes, grossly stable Electronically signed by: Harmeet Palomares MD (01/23/2019 11:57 AM) [facility]
--- NOTE | 2019-01-23 12:50 | EKG ---
[facility] [address] [place] [address] Test Date: 2019-01-23 Test Time: 11:37:41 Pat Name: TANYA JOHNSON Department: Room: Gender: M Licensed Staff Mft: : 1950 Requested By: SILKE GRAHAM Order Number: [id number] Reading MD: Scott Desai MD Measurements Intervals [place] Rate: 107 P: IN: QRS: -67 QRSD: 124 T: 24 QT: 364 QTc: 491 Interpretive Statements AFIB WITH RVR RBBB LAFB Electronically Signed On 01-24-2019 12:07:25 CDT by Scott Desai MD
[2019-01-23] MEDS ORDERED: IOHEXOL 350 MG/ML 100 ML VIAL. IV ONE (14:15)
[2019-01-23] MEDS ORDERED: CONTRAST GIVEN. MC PRN (14:15)
[2019-01-23 14:34] LABS: AMPHETAMINE/METHAMPHETAMINE NEG (NEG); BARBITURATES NEG (NEG); BENZODIAZEPINES NEG (NEG); CANNABINOIDS POS (NEG); COCAINE POS (NEG); METHADONE NEG (NEG); OPIATES POS (NEG); PHENCYCLIDINE NEG (NEG)
--- NOTE | 2019-01-23 14:37 | RAD ---
Examination: CT ANGIOGRAPHY CHEST History: Shortness of breath Comparison/Correlation: 02/04/2017 CTA of the chest Findings: Axial images of chest were obtained following IV contrast according to pulmonary arteriography protocol. Sagittal and coronal reformatted images were provided. Maximum intensity projection images were provided. Pulmonary arterial vasculature is normal with no thromboembolic disease. Extensive emphysematous involvement of the lung chau is noted. [place] dependent atelectasis is present. No suspicious infiltrate. No enlarged thoracic lymph nodes. Nonenlarged superior mediastinal lymph nodes are stable. Partially visualized upper abdomen is unremarkable. Thoracic aorta is unremarkable for the patient's age. Bony structures are unremarkable. Impression: No pulmonary arterial thromboembolic disease. No infiltrate. PQRS Compliance Statement: One or more of the following individualized dose reduction techniques were utilized for this examination: 1. Automated exposure control 2. Adjustment of the mA and/or kV according to patient size 3. Use of iterative reconstruction technique Electronically signed by: Kirby Cowan MD (01/23/2019 2:35 PM) [facility]
[2019-01-23] MEDS ORDERED: ONDANSETRON PF 4 MG/2 ML VIAL. IV PRN (15:45)
[2019-01-23] MEDS ORDERED: MORPHINE SULFATE 2 MG/ML VIAL. IV PRN (15:45)
[2019-01-23] MEDS ORDERED: ACETAMINOPHEN 325 MG TABLET. PO PRN (15:45)
[2019-01-23] MEDS ORDERED: NITROGLYCERIN SUBLINGUAL 0.4 MG BOTTLE OF 25. SL PRN (15:45)
[2019-01-23] MEDS: IPRATRPIUM/ALBUTEROL 0.5/2.5MG 3 ML NEBU. NEB SCH ×2 (16:44→19:14)
[2019-01-23 20:00] VITALS: BP 116/68
[2019-01-23] MEDS ORDERED: FLUT16SP (20:41)
[2019-01-23] MEDS ORDERED: HYDR-2763 (20:41)
[2019-01-23] MEDS ORDERED: TAMSULOSIN (20:41)
[2019-01-23] MEDS ORDERED: LORA10TA3 (20:41)
[2019-01-23] MEDS ORDERED: GABA300C9 (20:41)
[2019-01-23] MEDS ORDERED: LEVE500T6 (20:41)
[2019-01-23] MEDS ORDERED: NON FORMULARY ITEM (Albuterol Sulfate (Ventolin Hfa Inhaler) 2 PUFF) IH PRN (20:45)
[2019-01-23] MEDS ORDERED: DEXTROSE 50% 25 GM / 50ML DISP.SYRIN. IV PRN (21:00)
[2019-01-23] MEDS ORDERED: IV DEXTROSE 5% 250 ML BAG. IV PRN (21:00)
[2019-01-23] MEDS ORDERED: TAMSULOSIN 0.4 MG CAP.ER.24H. PO SCH (21:00)
[2019-01-23] MEDS ORDERED: ALBUTEROL SULFATE 2.5 MG/3 ML NEBU. NEB PRN (21:15)
[2019-01-23] MEDS: HYDROcodone/APAP 7.5/325MG 1 TAB TABLET PO PRN (21:31)
[2019-01-23] MEDS: levETIRAcetam 500 MG TABLET PO SCH (21:31)
[2019-01-23] MEDS: GABAPENTIN 300 MG CAPSULE. PO SCH (21:32)
[2019-01-23 23:25] VITALS: BP 146/60
[2019-01-24 02:53] VITALS: BP 136/69
[2019-01-24 04:58] LABS: BASO % 0 % (0-3); EOS % 0 % (0-3); HEMATOCRIT 41.4 % (39.0-53.0); HEMOGLOBIN 13.8 g/dL (13.0-17.5); LYMPH # 0.5 x10^3/uL (1.0-4.8); LYMPH % 9 % (24-48); MEAN CORPUSCULAR HEMOGLOBIN 30 pg (25-35); MEAN CORPUSCULAR HGB CONC 33 g/dL (31-37); MEAN CORPUSCULAR VOLUME 90 fL (79-100); MONO # 0.2 x10^3/uL (0.0-1.1); MONO % 4 % (0-9); NEUT # 4.7 x10^3/uL (1.8-7.7); NEUT % 87 % (31-73); PLATELET COUNT 148 x10^3/uL (140-400); RED BLOOD COUNT 4.62 x10^6/uL (4.30-5.70); WHITE BLOOD COUNT 5.4 x10^3/uL (4.0-11.0)
[2019-01-24 05:11] LABS: CALCIUM 8.8 mg/dL (8.5-10.1); CREATININE 1.2 mg/dL (0.7-1.3); GFR 73.3; POTASSIUM 4.6 mmol/L (3.5-5.1)
[2019-01-24 07:00] VITALS: BP 99/56
[2019-01-24] MEDS: INSULIN LISPRO 300 UNITS/3 ML VIAL. SQ SCH ×3 (08:00→17:00)
[2019-01-24] MEDS: IPRATRPIUM/ALBUTEROL 0.5/2.5MG 3 ML NEBU. NEB SCH ×2 (08:00→11:44)
--- NOTE | 2019-01-24 08:27 | PDOC1 ---
H & P. HPI: Mr. Lipscomb is a 68 year old male with past medical history of COPD, type 2 diabetes, seizure disorder, history of multidrug abuse, who presented to the clinic yesterday for evaluation of shortness of breath. He was acutely dyspneic and EMS was called for transport to [facility]. Labs and imaging and EKG were performed and remarkable for A. fib with RVR, UDS was positive for opiates, cocaine, marijuana. Creatinine was mildly elevated at 1.4 in the ER however this has improved this morning to 1.2. Lactic acid was performed and was initially normal but was repeated for an unknown reason and was found to be elevated on repeat. Patient reportedly said that Afib was not a new diagnosis when in the ER, but states today that he hasn't been told he has Afib before. His rate improved with Cardizem given in the ER and he converted back to NSR. He initially refused admission but then agreed to it. ROS: Constitutional: Denies fever, fatigue, chills HEENT: Denies sore throat, vision changes Cardio: Denies chest pain, dyspnea with exertion, syncope, palpitations, edema Pulmonary: Admits intermittent shortness of breath with exertion, cough GI: Denies nausea, vomiting, diarrhea, constipation Skin: Denies new lesions Neuro: Denies weakness, paresthesias PMH: As above FAMILY HX: Unknown. SOCIAL HX: Long-term smoking history, history of multidrug abuse including cocaine use, marijuana use, and prescription opiate use. He gets hydrocodone 7.5/325 [address] Mahmood. Denies IV drug use. Last used cocaine 3 days ago. Admits to intermittent use, a couple times a month. Drinks heavily intermittently also. SURGICAL HX: hx of hand surgery MEDS: Reviewed and reconciled ALLERGIES: Reviewed PE: Alert, oriented, no acute distress EOMI, sclera non-icteric Neck supple RRR Decreased to auscultation, no wheezes, crackles or rhonchi Soft, NT, ND No edema, cyanosis. Normal capillary refill. Calm, cooperative, mood/affect within normal limits ASSESSMENT & PLAN: A. fib with RVR, now rate controlled History of multidrug abuse, with positive UDS for cocaine, marijuana, and opiates (given by prescription) COPD Type 2 diabetes, previously well controlled Seizure disorder Elevated lactic acid Cardiology has been consulted Discuss plan for anticoagulation and rate control, given cocaine use, beta blockers would likely be a poor choice Encouraged cessation of cocaine use as this will precipitate further A. fib episodes Repeat lactic acid, get A1C Get echo Patient wishes to go home today after this work up, if agreeable with Cards. VENICE FAYE MD Jan 24, 2019 08:27
[2019-01-24] MEDS: GABAPENTIN 300 MG CAPSULE. PO SCH ×2 (08:31→15:04)
[2019-01-24] MEDS: levETIRAcetam 500 MG TABLET PO SCH (08:31)
[2019-01-24 08:38] LABS: % ATYL 1 % (0-0); % BANDS 7 % (0-9); % LYMPHS 8 % (24-48); % MONOS 3 % (0-10); % SEGS 81 % (35-66); PLT ESTIMATE ADEQUATE (ADEQUATE)
[2019-01-24 08:40] LABS: ANISOCYTOSIS SLIGHT; POLYCHROMASIA SLIGHT
[2019-01-24] MEDS ORDERED: FLUTICASONE 50MCG/NASAL SPRAY 16GM BOTTLE. NS SCH (09:00)
[2019-01-24] MEDS ORDERED: CETIRIZINE HCL 10 MG TABLET. PO SCH (09:00)
[2019-01-24] MEDS: HYDROcodone/APAP 7.5/325MG 1 TAB TABLET PO PRN (09:18)
--- NOTE | 2019-01-24 09:57 | PDOC2 ---
FLEX PADILLA WIND [employer] BLADE REPAIR TECHNICIAN 01/24/19 0957: CARDIAC CONSULT DATE OF CONSULT Date of Consult DATE: 01/24/19 TIME: 09:50 REASON FOR CONSULT Reason for Consult: AFIB REFERRING PHYSICIAN Referring Physician: Darek SOURCE Source: Chart review, Patient HISTORY OF PRESENT ILLNESS HISTORY OF PRESENT ILLNESS This is a pleasant 68 yo male admitted for complains of SOA and coughing. Also complained of dizziness but no chest pain, palpitations. No falls or injury. He continues to use cocaine, marijuana and tobacco and binges with ETOH with last episode this weekend. Reports intermittent use of O2, and inhalers. No p ast hx of CAD, CVA nor AFIB. Presently he is comfortable. He was in AFIB upon admission and converted to SR after cardizem and maintaining SR. PAST MEDICAL HISTORY Past Medical History Cardiovascular: HTN, bradycardia Pulmonary: COPD GI: GI bleed, Peptic Ulcer disease Hepatobiliary: no pertinent history Musculoskeletal: Osteoarthritis Renal/: Benign prostatic enlarg. Endocrine: Diabetes (2) PAST SURGICAL HISTORY Past Surgical History Cataract Removal, Other (left lung surgery) FAMILY HISTORY Family History: Diabetes SOCIAL HISTORY Social History Smoke: <1 pack per day ALCOHOL: occasional Drugs: Cocaine (w while), Marijuana Lives: Alone CURRENT MEDICATIONS CURRENT MEDICATIONS Current Medications Medications (Trade) Dose Ordered Sig/Omaira Route PRN Reason Start Time Stop Time Status Last Admin Dose Admin Methylprednisolone Sodium Succinate (SOLU-Medrol 125MG VIAL) 125 mg 1X ONCE IV 01/23/19 11:30 01/23/19 11:31 DC 01/23/19 11:52 Albuterol/ Ipratropium (Duoneb) 3 ml 1X ONCE NEB 01/23/19 11:30 01/23/19 11:31 DC 01/23/19 11:39 Diltiazem HCl (Cardizem Iv Push) 10 mg 1X ONCE IVP 01/23/19 12:00 01/23/19 12:01 DC 01/23/19 12:27 Iohexol (Omnipaque 350 Mg/ml) 100 ml 1X ONCE IV 01/23/19 14:15 01/23/19 14:16 DC 01/23/19 14:20 Diltiazem HCl (Cardizem Iv Push) 10 mg 1X ONCE IVP 01/23/19 15:45 01/23/19 15:46 DC 01/23/19 17:06 Ondansetron HCl (Zofran) 4 mg PRN Q8HRS PRN IV NAUSEA/VOMITING 01/23/19 15:45 01/24/19 15:44 01/23/19 17:06 Morphine Sulfate (Morphine Sulfate) 2 mg PRN Q2HR PRN IV PAIN 01/23/19 15:45 01/24/19 15:44 01/23/19 17:14 Albuterol/ Ipratropium (Duoneb) 3 ml RTQID NEB 01/23/19 16:00 01/24/19 15:59 01/24/19 08:00 Fluticasone Propionate (Flonase) 2 spray DAILY NS 01/24/19 09:00 01/24/19 09:19 Gabapentin (Neurontin) 900 mg TID PO 01/23/19 21:00 01/24/19 08:33 Acetaminophen/ Hydrocodone Bitart (Lortab 7.5/325) 1 tab PRN Q6HRS PRN PO PAIN 01/23/19 20:45 01/24/19 09:19 Levetiracetam (Keppra) 500 mg BID PO 01/23/19 21:00 01/24/19 08:33 Cetirizine HCl (ZyrTEC) 10 mg DAILY PO 01/24/19 09:00 01/24/19 08:33 Tamsulosin HCl (Flomax) 0.4 mg QHS PO 01/23/19 21:00 01/23/19 21:32 ALLERGIES ALLERGIES: Coded Allergies: No Known Drug Allergies (Unverified , 08/10/16) ROS Review of System 14 point ROS evaluated with pertinent positives noted per HPI PHYSICAL EXAM General: Alert, Oriented X3, Cooperative, No acute distress HEENT: Atraumatic, Mucous membr. moist/pink Lungs: Other (diminished ) Heart: Regular rate (SR), Normal S1, Normal S2, Other (2/6 systolic murmur to LLS border) Abdomen: Soft, No tenderness Extremities: No cyanosis, No edema Skin: No breakdown, No significant lesion Neuro: Normal speech, Sensation intact Psych/Mental Status: Mental status NL, Mood NL MUSCULOSKELETAL: Osteoarthritic changes both hands VITALS/I&O VITALS/I&O: Vital Signs Date Time Temp Pulse Resp B/P (MAP) Pulse Ox O2 Delivery O2 Flow Rate FiO2 01/24/19 09:19 95 Nasal Cannula 2.0 01/24/19 07:00 97.9 59 22 99/56 (70) 97.9 I & O 01/23/19 01/23/19 01/24/19 15:00 23:00 07:00 Intake Total 800 ml 2300 ml Balance 800 ml 2300 ml LABS Lab: Laboratory Tests Test 01/23/19 11:24 01/23/19 14:01 01/23/19 15:21 01/23/19 21:13 White Blood Count 5.6 x10^3/uL (4.0-11.0) Red Blood Count 5.03 x10^6/uL (4.30-5.70) Hemoglobin 15.0 g/dL (13.0-17.5) Hematocrit 44.9 % (39.0-53.0) Mean Corpuscular Volume 89 fL (79-100) Mean Corpuscular Hemoglobin 30 pg (25-35) Mean Corpuscular Hemoglobin Concent 33 g/dL (31-37) Red Cell Distribution Width 15.1 % (11.5-14.5) H Platelet Count 151 x10^3/uL (140-400) Neutrophils (%) (Auto) 69 % (31-73) Lymphocytes (%) (Auto) 18 % (24-48) L Monocytes (%) (Auto) 9 % (0-9) Eosinophils (%) (Auto) 4 % (0-3) H Basophils (%) (Auto) 1 % (0-3) Neutrophils # (Auto) 3.8 x10^3/uL (1.8-7.7) Lymphocytes # (Auto) 1.0 x10^3/uL (1.0-4.8) Monocytes # (Auto) 0.5 x10^3/uL (0.0-1.1) Eosinophils # (Auto) 0.2 x10^3/uL (0.0-0.7) Basophils # (Auto) 0.0 x10^3/uL (0.0-0.2) Prothrombin Time 14.0 SEC (11.7-14.0) Prothrombin Time INR 1.1 (0.8-1.1) Sodium Level 142 mmol/L (136-145) Potassium Level 4.1 mmol/L (3.5-5.1) Chloride Level 107 mmol/L (98-107) Carbon Dioxide Level 27 mmol/L (21-32) Anion Gap 8 (6-14) Blood Urea Nitrogen 18 mg/dL (8-26) Creatinine 1.4 mg/dL (0.7-1.3) H Estimated GFR (Cockcroft-Gault) 61.4 BUN/Creatinine Ratio 13 (6-20) Glucose Level 110 mg/dL (70-99) H Lactic Acid Level 1.6 mmol/L (0.4-2.0) 3.3 mmol/L (0.4-2.0) H Calcium Level 8.9 mg/dL (8.5-10.1) Magnesium Level 2.1 mg/dL (1.8-2.4) Total Bilirubin 0.5 mg/dL (0.2-1.0) Aspartate Amino Transferase (AST) 21 U/L (15-37) Alanine Aminotransferase (ALT) 18 U/L (16-63) Alkaline Phosphatase 76 U/L (46-116) Creatine Kinase 258 U/L (39-308) Creatine Kinase MB (Mass) 3.6 ng/mL (0.0-3.6) Creatine Kinase MB Relative Index 1.4 % (0-4) Troponin I Quantitative < 0.017 ng/mL (0.000-0.055) PL-Ika-R-Type Natriuretic Peptide 212 pg/mL (0-124) H Total Protein 6.8 g/dL (6.4-8.2) Albumin 3.5 g/dL (3.4-5.0) Albumin/Globulin Ratio 1.1 (1.0-1.7) Thyroid Stimulating Hormone (TSH) 2.041 uIU/mL (0.358-3.74) Urine Opiates Screen Pos (NEG) Urine Methadone Screen Neg (NEG) Urine Barbiturates Neg (NEG) Urine Phencyclidine Screen Neg (NEG) Urine Amphetamine/Methamphetamine Neg (NEG) Urine Benzodiazepines Screen Neg (NEG) Urine Cocaine Screen Pos (NEG) Urine Cannabinoids Screen Pos (NEG) Urine Ethyl Alcohol Neg (NEG) Glucose (Fingerstick) 268 mg/dL (70-99) H Test 01/24/19 03:55 01/24/19 07:51 White Blood Count 5.4 x10^3/uL (4.0-11.0) Red Blood Count 4.62 x10^6/uL (4.30-5.70) Hemoglobin 13.8 g/dL (13.0-17.5) Hematocrit 41.4 % (39.0-53.0) Mean Corpuscular Volume 90 fL (79-100) Mean Corpuscular Hemoglobin 30 pg (25-35) Mean Corpuscular Hemoglobin Concent 33 g/dL (31-37) Red Cell Distribution Width 15.0 % (11.5-14.5) H Platelet Count 148 x10^3/uL (140-400) Neutrophils (%) (Auto) 87 % (31-73) H Lymphocytes (%) (Auto) 9 % (24-48) L Monocytes (%) (Auto) 4 % (0-9) Eosinophils (%) (Auto) 0 % (0-3) Basophils (%) (Auto) 0 % (0-3) Neutrophils # (Auto) 4.7 x10^3/uL (1.8-7.7) Lymphocytes # (Auto) 0.5 x10^3/uL (1.0-4.8) L Monocytes # (Auto) 0.2 x10^3/uL (0.0-1.1) Eosinophils # (Auto) 0.0 x10^3/uL (0.0-0.7) Basophils # (Auto) 0.0 x10^3/uL (0.0-0.2) Segmented Neutrophils % 81 % (35-66) H Band Neutrophils % 7 % (0-9) Lymphocytes % 8 % (24-48) L Atypical Lymphocytes % (Manual) 1 % (0-0) H Monocytes % 3 % (0-10) Platelet Estimate Adequate (ADEQUATE) Large Platelets Few Polychromasia Slight Anisocytosis Slight Sodium Level 138 mmol/L (136-145) Potassium Level 4.6 mmol/L (3.5-5.1) Chloride Level 103 mmol/L (98-107) Carbon Dioxide Level 25 mmol/L (21-32) Anion Gap 10 (6-14) Blood Urea Nitrogen 21 mg/dL (8-26) Creatinine 1.2 mg/dL (0.7-1.3) Estimated GFR (Cockcroft-Gault) 73.3 Glucose Level 122 mg/dL (70-99) H Calcium Level 8.8 mg/dL (8.5-10.1) Glucose (Fingerstick) 124 mg/dL (70-99) H Laboratory Tests 01/23/19 11:24 01/24/19 03:55 Laboratory Tests 01/23/19 11:24 01/24/19 03:55 IMAGES IMAGES Findings: Axial images of chest were obtained following IV contrast according to pulmonary arteriography protocol. Sagittal and coronal reformatted images were provided. Maximum intensity projection images were provided. Pulmonary arterial vasculature is normal with no thromboembolic disease. Extensive emphysematous involvement of the lung chau is noted. [place] dependent atelectasis is present. No suspicious infiltrate. No enlarged thoracic lymph nodes. Nonenlarged superior mediastinal lymph nodes are stable. Partially visualized upper abdomen is unremarkable. Thoracic aorta is unremarkable for the patient's age. Bony structures are unremarkable. Impression: No pulmonary arterial thromboembolic disease. No infiltrate. DATE: 01/23/19 1435 ECHOCARDIOGRAM ECHOCARDIOGRAM <Conclusion> The left ventricular systolic function is normal. The ejection fraction is estimated at 60%. There is normal LV segmental wall motion. Transmitral Doppler flow pattern is Grade I-abnormal relaxation pattern. Trace mitral regurgitation. Trace to mild tricuspid regurgitation. There is no evidence of significant pericardial effusion. DATE: 08/16/17 1357 ASSESSMENT/PLAN ASSESSMENT/PLAN 1. AFIB RVR: new finding. Likely induced by cocaine. SR overnight since cardizem IV bolus given. 2. Hx of asymptomatic SB 2. COPD with continued tobaccoism: uses O2 at home. 3. Substance abuse: marijuana, ETOH/Cocaine 4. Lactic acidosis: due to cocaine/ETOH use 5. Hx HTN 6. Chronic RBBB 7. Binge alcoholism: last use this weekend Recommendations 1. TTE. Arrange MCOT to further guide medical therapy and note any tachy citlaly issues as well. 2. Smoking cessation, abstinence from ETOH and marijuana. 3. Presently SR with frequent unifocal PVC. Check Mg. 4. ASA. KIM MCKEON MD 01/25/192208: CARDIAC CONSULT ASSESSMENT/PLAN ASSESSMENT/PLAN Late entry for 01/24/2019 Pt. seen and examined. Agree with above PRE BILLING SPECIALIST note. Ok to DC from CV standpoint. Echo w normal EF. Moderate pulmonary HTN Discussed cessation of drug use. FLEX PADILLA WIND [employer] BL[employer] REPAIR TECHNICIAN Jan 24, 2019 09:57 KIM MCKEON MD Jan 25, 2019 22:09
[2019-01-24 11:00] VITALS: BP 134/69
[2019-01-24 15:00] VITALS: BP 125/62
--- NOTE | 2019-01-24 15:19 | CARD ---
MR#: [id number] Date of Study: 01/24/2019 Ordering Physician: VENICE FAYE, Referring Physician: VENICE FAYE Tech: Telma Suh RDCS APPROVED REPORT EXAM: Two-dimensional and M-mode echocardiogram with Doppler and color Doppler. Other Information Quality : AverageHR: 75bpm Rhythm : NSR INDICATION Atrial Fibrillation 2D DIMENSIONS RVDd3.4 (2.9-3.5cm)Left Atrium(2D)3.4 (1.6-4.0cm) IVSd1.4 (0.7-1.1cm)Aortic Root(2D)3.4 (2.0-3.7cm) LVDd5.4 (3.9-5.9cm)LVOT Diameter2.0 (1.8-2.4cm) PWd1.1 (0.7-1.1cm)LVDs3.3 (2.5-4.0cm) FS (%) 38.9 %SV95.8 ml LVEF(%)65.0 (>50%) Aortic Valve AoV Peak Ortega.140.5cm/sAoV VTI34.9cm AO Peak GR.7.9mmHgLVOT Peak Ortega.94.3cm/s AO Mean GR.4mmHgAVA (VMAX)2.18cm2 KISHORE (VTI)2.20cm2 Mitral Valve MV E Aciormrs94.8cm/sMV DECEL [id number] MV A Dkzwbddh53.0cm/sE/A Ratio1.2 Pulmonary Valve PV Peak Pcgnjhec633.7cm/s Tricuspid Valve TR P. [id number]/sRAP [id number] TR Peak Gr.67umErCMYV44joKn LEFT VENTRICLE The left ventricle is normal size. There is mild concentric left ventricular hypertrophy. The left ve ntricular systolic function is normal. The Ejection Fraction is 60-65%. There is normal LV segmental wall motion. Transmitral Doppler flow pattern is Grade II-pseudonormal filling dynamics. RIGHT VENTRICLE The right ventricle is normal size. There is normal right ventricular wall thickness. The right ventr icular systolic function is normal. ATRIA The left atrium size is normal. The right atrium size is normal. The interatrial septum is intact wit h no evidence for an atrial septal defect or patent foramen ovale as noted on 2-D or Doppler imaging. AORTIC VALVE The aortic valve is normal in structure and function. The aortic valve is trileaflet. Doppler and Col or Flow revealed no significant aortic regurgitation. There is no significant aortic valvular stenosi s. MITRAL VALVE The mitral valve is normal in structure and function. There is no evidence of mitral valve prolapse. There is no mitral valve stenosis. Doppler and Color Flow revealed no mitral valve regurgitation note d. TRICUSPID VALVE The tricuspid valve is normal in structure and function. Doppler and Color Flow revealed mild tricusp id regurgitation. The PA pressure was estimated at 52 mmHg. There is no tricuspid valve prolapse or v egetation. There is no tricuspid valve stenosis. PULMONIC VALVE The pulmonic valve is not well visualized. GREAT VESSELS The aortic root is normal in size. The ascending aorta is normal in size. The IVC is normal in size a nd collapses >50% with inspiration. PERICARDIAL EFFUSION There is no evidence of significant pericardial effusion. Critical Notification Critical Value: No <Conclusion> The left ventricular systolic function is normal. The Ejection Fraction is 60-65%. There is normal LV segmental wall motion. Mild tricuspid regurgitation. The PA pressure was estimated at 52 mmHg. There is no evidence of significant pericardial effusion. Signed by : Juan Diego Leigh, Electronically Approved : 01/24/2019 15:19:02
[2019-01-24] MEDS ORDERED: ASPI-612 PO (16:54)
[2019-01-24 23:07] LABS: HEMOGLOBIN A1C 5.3 % (4.8-5.6)
[2019-01-25] MEDS ORDERED: ASPIRIN ENTERIC COATED 81 MG TABLET.DR. PO SCH (08:00)
== END 2019-01-24 17:30 | disposition home or self-care (01) | DRG 309 ==
LOC: ER 11:10 → ED HOLD 13:58 → 2 NORTH 19:44
PROVIDERS: ADMIT Family Medicine; ATTEND Family Medicine
DX: I48.91 Unspecified atrial fibrillation (principal); J44.1 Chronic obstructive pulmonary disease with (acute) exacerbation; E87.2 Acidosis; H54.8 Legal blindness, as defined in USA; F14.90 Cocaine use, unspecified, uncomplicated; F17.210 Nicotine dependence, cigarettes, uncomplicated; E11.9 Type 2 diabetes mellitus without complications; G40.909 Epilepsy, unspecified, not intractable, without status epilepticus; I10 Essential (primary) hypertension; M19.90 Unspecified osteoarthritis, unspecified site; F12.10 Cannabis abuse, uncomplicated; I45.10 Unspecified right bundle-branch block; F10.20 Alcohol dependence, uncomplicated; I27.20 Pulmonary hypertension, unspecified; Z79.82 Long term (current) use of aspirin; Z87.11 Personal history of peptic ulcer disease; Z83.3 Family history of diabetes mellitus; Z99.81 Dependence on supplemental oxygen
CPT/HCPCS: 36415; 71045; 71275; 80048; 80053; 80307; 82553; 82962; 83036; 83605; 83735; 83880; 84443; 84484; 85007; 85025; 85610; 87040; 93005; 93306; 94618; 94640; 94760; 96374; 96375; J2270; J2405; J2930; J3490; J7613; J7620; Q9967; 99285-25; G0378

== ENCOUNTER → 2019-06-09 | Outpatient (CLI) | payer MEDICARE, OTHER ==
[~2019-06-09] MED LIST changes: +ASPI-612 PO; +FLUT16SP; +GABA300C9; +HYDR-2763; +LEVE500T6; +LORA10TA3; +TAMSULOSIN; -VALA1000 PO; +VALA10008 PO
--- NOTE | 2019-06-09 14:49 | RAD ---
EXAM: Chest, 2 views. HISTORY: Shortness of breath. Cough. COMPARISON: 01/23/2019 FINDINGS: 2 views of the chest are obtained. There is no infiltrate, pleural effusion or pneumothorax. The heart is normal in size. There are coarse likely chronic interstitial markings. There is hyperinflation due to inspiratory effort or emphysema. IMPRESSION: Suspected chronic interstitial changes. No acute pulmonary finding. Electronically signed by: Randi Wilkerson MD (06/09/2019 2:46 PM) [facility] [place]
--- NOTE | 2019-06-09 18:31 | RAD ---
Sinus series. INDICATION: Chronic cough. COMPARISON: Maxillofacial CT with IV contrast of January 26, 2018. FINDINGS: Ritter, Millan, lateral and submentovertex views of the paranasal sinuses were obtained. They show no air-fluid levels, opacification, or deformity of the paranasal sinuses and mastoid air cells. No significant incidental findings are appreciated. IMPRESSION: Negative x-ray series of the paranasal sinuses. Consider CT in further evaluation based on index of clinical suspicion. Electronically signed by: Joya Garcia MD (06/09/2019 6:28 PM) [facility]
== END | disposition home or self-care (01) ==
LOC: RAD 13:11
PROVIDERS: ATTEND Internal Medicine
DX: J44.9 Chronic obstructive pulmonary disease, unspecified (principal)
CPT/HCPCS: 70220; 71046

== ENCOUNTER → 2020-05-23 | Outpatient (CLI) | payer MEDICARE, OTHER ==
[~2020-05-23] MED LIST changes: -ASPI-612 PO; +ASPI-886 PO
--- NOTE | 2020-05-23 08:21 | RAD ---
Examination: Ultrasound abdomen complete HISTORY: History of acute abdominal pain COMPARISON: 02/08/2017 FINDINGS: The visualized aorta, IVC within normal limits of dimension. The liver length measures 16.4 cm width. There is moderate increased echogenicity identified throughout the liver likely hepatic steatosis. N o evidence of gallstones identified. The gallbladder wall thickness measures 1.5 mm. The right kidney measures 9.7 x 5.3 x 4.2 cm. The left kidney measures 10.1 x 4.8 x 3.9 cm. The pancreas is not well-visualized. The spleen measures 10 cm in length. The visualized aorta, IVC within normal limits of dimension. IMPRESSION: 1. Hepatic steatosis. Electronically signed by: Augusto Moarn MD (05/23/2020 8:19 AM) [id number]
== END ==
LOC: US 07:50
PROVIDERS: ATTEND Internal Medicine
DX: K76.0 Fatty (change of) liver, not elsewhere classified (principal)
CPT/HCPCS: 76700

== ENCOUNTER → 2020-06-05 | Outpatient (CLI) | payer OTHER ==
--- NOTE | 2020-06-05 13:13 | PDOC1 ---
INITIAL PAIN CONSULT DATE OF SERVICE: DOS: DATE: 06/05/20 TIME: 13:07 CHIEF COMPLAINT: Chief Complaint: Low back and right lower extremity pain HISTORY OF PRESENT ILLNESS: 70-year-old male presents history of pain in the low back right lower extremity rating the posterior gluteus posterior lateral thigh lateral anterior thigh into the medial lower leg on the right. Patient ports is constant throbbing intermi ttent intensity no is present aching patient reports been going on for about 20 years in the back but over the past 1 year in the right lower extremity. Patient reports he is done physical therapy exercises also has had chiropractic treatment none of which is helped decrease the pain he exercises daily walks up to half a mile a day on good weather days. Patient reports all these have not decreased the pain significantly he is also been taking hydrocodone which does decrease pain by about 40% anti-inflammatories as well as Tylenol been tried also only with minimal decrease in pain with each of these. Patient rates his disability rating from 0-10 10 being the worst is a 7 with family home responsibilities 10 with recreation occupation 8-9 with self-care and life support activities and 8 with social activity. Patient did have an MRI scan lumbar spine showing at the L4-5 level mild narrowing of the right neuroforamen disc osteophyte complex is extraforaminal right L4 nerve root without displacement and mild narrowing the left neural foramen as well with moderate spinal stenosis greater on the left L4-5 and overall mild spinal stenosis at L3- 4. Patient reports no loss of motor function of the fatigability the right lower extremity walking standing changing positions patient ports better with sitting or laying down generally is not awaken her sleep at night does not affect his bowel bladder control but does affect his body to walk he has a cane with him which he is using today and holding it in his left hand. PAST MEDICAL HISTORY: PMH: Diet-controlled diabetes, hypertension, arthritis, cigarette smoking PREVIOUS SURGERIES: Past Surgical Hx: Wrist surgery 2017 and 18, left eye cataract extraction CURRENT MEDICATIONS: Current Meds: Active Scripts Medications Dose Route/Sig Max Daily Dose Days Date Category Fluticasone Propionate Nasal [place] (Fluticasone Propionate) 16 Gm Weston.susp 16 Gm DAILY 01/23/19 Reported Gabapentin 300 Mg Capsule 900 Mg TID 01/23/19 Reported Loratadine 10 Mg Tablet 10 Mg DAILY 01/23/19 Reported Hydrocodone-Acetamin 7.5-325 (Hydrocodone/Acetaminophen) 1 Each Tablet 7.5-325 Mg PRN Q6HRS PRN 01/23/19 Reported Spiriva (Tiotropium [place]) 18 Mcg Cap.w.dev 1 Cap IH DAILY 11/12/14 Reported Symbicort 160-4.5 Mcg Inhaler (Budesonide/Formoterol Fumarate) 10.2 Gm Hfa.aer.ad 10.2 Gm IH BID 07/28/13 Reported Albuterol Sulfate Hfa Inhaler (Albuterol Sulfate) 8.5 Gm Hfa.aer.ad 8.5 Gm IH QID 07/28/13 Reported Tamsulosin Hcl 0.4 Mg Cap.er.24h 0.4 Mg PO DAILY 07/28/13 Reported ALLERGIES; Allergies: Coded Allergies: No Known Drug Allergies (Unverified , 08/10/16) FAMILY HISTORY: Family Hx: Sickle cell trait SOCIAL HISTORY: Social Hx: Patient takes alcohol occasionally smokes less than a pack a day and has for 33 years does not use any illegal illicit recreational drugs is single lives locally in [facility] REVIEW OF SYSTEMS: ROS: Positive for those items mentioned in history of present illness, all systems are reviewed, otherwise negative ,and are complete full and well-documented on patient's chart. PHYSICAL EXAM: VS: Blood pressure is 120/65 pulse 70 respirations 16 temperature 98.2 F height is 5 feet 6 inches weight is 170 pounds PE: PHYSICAL EXAMINATION: GENERAL: The patient is awake, alert, oriented, appropriate, very pleasant demeanor HEENT: Shows normocephalic, atraumatic. Extraocular movements are symmetrical patient is legally blind in his right eye and has a opacity on the cornea. Oral cavity: Mucous membranes moist and pink. Dentition is intact. NECK: Shows anterior throat supple without palpable lymphadenopathy noted. Swallow reflex symmetrical. CHEST: Shows normal on inspection. Breath sounds are clear bilaterally, no rales rhonchi wheezes auscultated. HEART: Shows S1, S2 clear. No murmurs auscultated. ABDOMEN: Soft, nontender, nondistended, obese. No palpable organomegaly is noted. No rebound or guarding demonstrated. BACK: Shows spine grossly in the midline. Normal-appearing cervical lordotic curvature. There is increased thoracic kyphosis, some flattening of the lumbar lordotic curvature. Lumbar paraspinous muscles show symmetrical on inspection, on palpation shows some moderate tenderness diffusely throughout the upper, middle and lower distribution of the paraspinous muscles bilaterally and also into the lower thoracic paraspinous musculature, firm and tender, but without specific trigger points, without radiation of pain. The patient has good rotational motion of the lumbar spine, both laterally as well as extension and flexion without significant difficulty. No tenderness over the spinous processes, sacrum or sacroiliac regions. EXTREMITIES: Lower extremities show deep tendon reflexes 1+ in the patellar and tendo calcaneus tendons. Motor exam is 4 on a scale of 5 with right dorsiflexion, extension, quadriceps and hamstring flexion and 5/5 on the left. Peripheral pulses are 1+ posterior tibial. No peripheral edema is noted bilaterally. Lower extremities are warm and dry to touch, equal in color and appearance. Straight leg raise noted to be positive on the right about 35 d egrees, left side is negative. Gaenslen's and Farhat's maneuvers are negative bilaterally as well. The patient is able to stand, stand on his toes without significant difficulty or loss of balance but is favoring his right lower extremity with ambulation using a cane in his left hand. SKIN: Shows warm and dry, good turgor. No edema. No sores, rashes or bruising throughout. IMPRESSION: Impression: 70-year-old male with long history low back right lower extremity pain worse over the past year in a radicular fashion following an L4-5 dermatomal distribution. MRI scan lumbar spine as noted Diet-controlled diabetes Hypertension Arthritis Plan: Options were discussed with the patient including conservative medical management physical therapies interventional techniques. Patient elects interventional techniques. We discussed a lumbar epidural steroid injection using description as well as anatomical models to describe the procedure. Patient will wait for preauthorization with his insurance provider and we will plan on translaminar approach at the L4-5 level for lumbar epidural steroid injection on his return. In the meantime patient will continue with stretching strength exercises and exercising daily and walking as currently. Patient was given Medrol Dosepak with instructions side effects to be aware of follow-up as scheduled. FREDERIC KHAN MD Jun 05, 2020 13:13
== END | disposition home or self-care (01) ==
LOC: PNCL 10:56
PROVIDERS: ATTEND Anesthesiology
DX: M54.5 Low back pain (principal); M79.604 Pain in right leg; E11.9 Type 2 diabetes mellitus without complications; I10 Essential (primary) hypertension; M19.90 Unspecified osteoarthritis, unspecified site; I48.91 Unspecified atrial fibrillation; J44.9 Chronic obstructive pulmonary disease, unspecified; G47.30 Sleep apnea, unspecified; K21.9 Gastro-esophageal reflux disease without esophagitis; F41.9 Anxiety disorder, unspecified; F32.9 Major depressive disorder, single episode, unspecified; F17.210 Nicotine dependence, cigarettes, uncomplicated; Z72.89 Other problems related to lifestyle; Z88.8 Allergy status to other drugs, medicaments and biological substances; Z79.899 Other long term (current) drug therapy; Z98.890 Other specified postprocedural states
CPT/HCPCS: 99214; G0463

== ENCOUNTER → 2020-06-19 | Outpatient (CLI) | payer OTHER ==
[~2020-06-19] MED LIST changes: +IOHEXOL 180 MG/ML 10 ML VIAL. ONE; +methylPREDNISolone ACETATE 40 MG/ML VIAL. ONE; +methylPREDNISolone ACETATE 80 MG/ML VIAL. ONE
--- NOTE | 2020-06-19 12:21 | PDOC4 ---
PROCEDURE Procedure Patient was consented for lumbar epidural steroid injection. Risks were dis cussed including but not limited to: Bleeding, infection, possibility of epidural hematoma and subsequent neurological compromise, dural puncture, headaches, spinal cord and/or nerve damage, side effects of steroid medication, and poor results regarding pain control. Patient understands and wished to proceed. Procedure is lumbar epidural steroid injection under local anesthetic using sterile prep and drape at the L4-5 level using C-arm fluoroscopic guidance in both AP and lateral views medications injected is 120 mg Depo-Medrol + 10 mL preservative-free normal saline and 2 mL contrast- condition at discharge is stable patient tolerated procedure well had no complications. FREDERIC KHAN MD Jun 19, 2020 12:21
--- NOTE | 2020-06-19 12:21 | PDOC ---
Progress Note - Pain Clinic Date of Service: DOS: DATE: 06/19/20 TIME: 12:17 Diagnosis: Dx: Lumbar radiculopathy with lumbar degenerative disease and lumbar spinal stenosis History or Present Illness: HPI: 70-year-old male returns for follow-up status post initial evaluation and preauthorization for lumbar epidural steroid injection. Patient returns with complaints of pain low back and bilateral lower extremities now more noticeable on the left than the right with some tingling in the posterior gluteus posterior lateral thigh lateral anterior thigh and lateral calf as well as the medial calf patient reports is still present on the right side as well but is more tingling on the left and more painful on the right. Patient reports is worse with walking standing changing positions better with sitting or laying down describes aching and tingling unbearable at times with ambulation patient rates it 10 on scale 10 is worst over the past week, 10 on average and 7 at its least is a 10 today. Patient reports no new motor or sensory deficits no new bowel or bladder incontinence still wakes him sleep about every 5-6 hours. Physical Exam: VS: Pressure is 130/86 pulse 88 respirations 16 temperature 99.2 F height is 5 feet 6 inches weight is 173 pounds PE: PHYSICAL EXAMINATION: GENERAL: The patient is awake, alert, oriented, appropriate, very pleasant rafael anor HEENT: Shows normocephalic, atraumatic. Extraocular movements are intact and symmetrical. Right shows opacity. Oral cavity: Mucous membranes moist and pink. NECK: Shows anterior throat supple without palpable lymphadenopathy noted. Swallow reflex symmetrical. CHEST: Shows normal on inspection. Breath sounds are clear bilaterally. HEART: Shows S1, S2 clear. No murmurs auscultated. ABDOMEN: Soft, nontender, nondistended, obese. No palpable organomegaly is noted. BACK: Shows spine grossly in the midline. Normal-appearing cervical lordotic curvature. There is increased thoracic kyphosis, some flattening of the lumbar lordotic curvature. Lumbar paraspinous muscles show symmetrical on inspection, on palpation shows some moderate tenderness diffusely throughout the upper, middle and lower distribution of the paraspinous muscles, but without specific trigger points, without radiation of pain. The patient has good rotational motion of the lumbar spine, both laterally as well as extension and flexion w ithout significant difficulty. EXTREMITIES: Lower extremities show deep tendon reflexes 1+ in the patellar and tendo calcaneus tendons. Motor exam is 4 on a scale of 5 with right dorsiflexion, extension, quadriceps and hamstring flexion and 5/5 on the left. Peripheral pulses are 1+ posterior tibial. No peripheral edema is noted bilaterally. Lower extremities are warm and dry to touch, equal in color and appearance. SKIN: Shows warm and dry, good turgor. No edema. No sores, rashes or bruising throughout. Procedure: Procedure: Options were discussed with patient, patient's old chart was reviewed his current medication regimen updated current review of systems updated today as well. We'll proceed with a lumbar epidural steroid injection today with fluoroscopic guidance. Risks were discussed including but not limited to: Bleeding, infection, possibility of epidural hematoma and subsequent neurological compromise, dural puncture, headaches, spinal cord and/or nerve damage, side effects of steroid medication, and poor results regarding pain control. Patient understands and wished to proceed. Patient will return to clinic in approximate 2 weeks for follow-up, was counseled as return appointment activity level and side effects to be aware of. Medication Injected: Med Injected: Procedure is lumbar epidural steroid injection under local anesthetic using sterile prep and drape at the L4-5 level using C-arm fluoroscopic guidance in both AP and lateral views medications injected is 120 mg Depo-Medrol + 10 mL preservative-free normal saline and 2 mL contrast- condition at discharge is stable patient tolerated procedure well had no complications. Condition at Discharge: Condition at Discharge: Condition at discharge stable, patient alert procedure well and had no complications. FREDERIC KHAN MD Jun 19, 2020 12:21
== END | disposition home or self-care (01) ==
LOC: PNCL 11:30
PROVIDERS: ATTEND Anesthesiology
DX: M51.16 Intervertebral disc disorders with radiculopathy, lumbar region (principal); M48.061 Spinal stenosis, lumbar region without neurogenic claudication; I10 Essential (primary) hypertension; E78.00 Pure hypercholesterolemia, unspecified; I48.91 Unspecified atrial fibrillation; M19.90 Unspecified osteoarthritis, unspecified site; J44.9 Chronic obstructive pulmonary disease, unspecified; E11.9 Type 2 diabetes mellitus without complications; K21.9 Gastro-esophageal reflux disease without esophagitis; F41.9 Anxiety disorder, unspecified; F32.9 Major depressive disorder, single episode, unspecified; F17.210 Nicotine dependence, cigarettes, uncomplicated; Z79.899 Other long term (current) drug therapy; Z98.890 Other specified postprocedural states; Z83.3 Family history of diabetes mellitus
CPT/HCPCS: 62323; J1030; J1040; Q9965

== ENCOUNTER → 2020-07-03 | Outpatient (CLI) | payer OTHER ==
[~2020-07-03] MED LIST changes: -IOHEXOL 180 MG/ML 10 ML VIAL. ONE; -methylPREDNISolone ACETATE 40 MG/ML VIAL. ONE; -methylPREDNISolone ACETATE 80 MG/ML VIAL. ONE
--- NOTE | 2020-07-03 12:18 | PDOC ---
Progress Note - Pain Clinic Date of Service: DOS: DATE: 07/03/20 TIME: 12:14 Diagnosis: Dx: Lumbar radiculopathy with lumbar degenerative disc disease and lumbar spinal stenosis History or Present Illness: HPI: 70-year-old male returns follow-up status post lumbar epidural steroid injection x1. Patient reports about 50% improvement overall in the low back and left lower extremity. Patient ports he can increase his activity with greater ease and comfort walking greater distances as well as sleeping better at night doing household activities and travel with greater ease and reports his mobility is much improved. Patient reports still wakes him from sleep occasionally but not every night maybe once every 6-7 hours at the most. Patient reports no new motor or sensory deficits no new bowel or bladder incontinence patient rates his pain is a 8 on scale 10 is worse over the past week 8 on average 7 its least is an 8 today. Patient describes as aching and cramping in the low back but on and off in intensity with pain radiating in the low back into the left lower extremity posterior gluteus lateral thigh anterior thigh medial thigh and medial lower leg. Physical Exam: VS: Blood pressure is 134/73 pulse 63 respirations are 16 temperature is 98.4 F weight is 169 pounds PE: PHYSICAL EXAMINATION: GENERAL: The patient is awake, alert, oriented, appropriate, very pleasant demeanor HEENT: Shows normocephalic, atraumatic. Extraocular movements are intact and symmetrical. Oral cavity: Mucous membranes moist and pink. NECK: Shows anterior throat supple without palpable lymphadenopathy noted. Swallow reflex symmetrical. CHEST: Shows normal on inspection. Breath sounds are clear bilaterally. HEART: Shows S1, S2 clear. No murmurs auscultated. ABDOMEN: Soft, nontender, nondistended, obese. No palpable organomegaly is noted. BACK: Shows spine grossly in the midline. Normal-appearing cervical lordotic curvature. There is slightly increased thoracic kyphosis, some minor flattening of the lumbar lordotic curvature. Lumbar paraspinous muscles show symmetrical on inspection, on palpation shows some moderate tenderness diffusely throughout the upper, middle and lower distribution of the paraspinous muscles, but without specific trigger points, without radiation of pain. The patient has good rotational motion of the lumbar spine, both laterally as well as extension and flexion without significant difficulty. EXTREMITIES: Lower extremities show deep tendon reflexes 1+ in the patellar and tendo calcaneus tendons. Motor exam is 4 on a scale of 5 with right dorsiflexion, extension, quadriceps and hamstring flexion and 5/5 on the left. Peripheral pulses are 1+ posterior tibial. No peripheral edema is noted bilaterally. Lower extremities are warm and dry to touch, equal in color and appearance. SKIN: Shows warm and dry, good turgor. No edema. No sores, rashes or bruising throughout. Procedure: Procedure: Options discussed with the patient. Patient chart reviewed his current medication regimen updated current review of systems updated today as well. We will have patient preauthorized for second lumbar epidural steroid injection he did very well after the first injection pain returning down the low back and the left lower extremity in a radicular fashion in the L4-5 dermatomal distribution. In the meantime patient will continue with stretching strength exercises walking daily as tolerated and oral analgesics as currently. She will return after preauthorization we will plan on translaminar L4-5 lumbar epidural steroid injection at that time. Medication Injected: Med Injected: None Condition at Discharge: Condition at Discharge: Condition at discharge is stable. FREDERIC KHAN MD Jul 03, 2020 12:18
== END | disposition home or self-care (01) ==
LOC: PNCL 10:36
PROVIDERS: ATTEND Anesthesiology
DX: M51.16 Intervertebral disc disorders with radiculopathy, lumbar region (principal); M48.061 Spinal stenosis, lumbar region without neurogenic claudication; I10 Essential (primary) hypertension; I48.91 Unspecified atrial fibrillation; J44.9 Chronic obstructive pulmonary disease, unspecified; G47.30 Sleep apnea, unspecified; K21.9 Gastro-esophageal reflux disease without esophagitis; M19.90 Unspecified osteoarthritis, unspecified site; F41.9 Anxiety disorder, unspecified; F32.9 Major depressive disorder, single episode, unspecified; F17.210 Nicotine dependence, cigarettes, uncomplicated; Z79.899 Other long term (current) drug therapy; Z98.890 Other specified postprocedural states; Z83.3 Family history of diabetes mellitus
CPT/HCPCS: G0463

== ENCOUNTER → 2020-07-24 | Outpatient (CLI) | payer OTHER ==
--- NOTE | 2020-07-24 10:56 | PDOC ---
Progress Note - Pain Clinic Date of Service: DOS: DATE: 07/24/20 TIME: 10:52 Diagnosis: Dx: Lumbar radiculopathy with lumbar degenerative disc disease and lumbar spinal stenosis History or Present Illness: HPI: 70-year-old male returns follow-up status post lumbar epidural steroid traction x1. Patient reports doing well about 50% improvement with the pain the low back and left lower extremity the pain is returning now but not to the significant stage that it was patient ports still about 50% improved patient would like to wait on any further injections at this time. Patient reports is aching and tingling radiating the left lower extremity posterior gluteus posterior lateral thigh lateral anterior thigh anteromedial thigh and medial and posterior calf on the left side patient reports is worse with walking and standing better with sitting or laying down generally is not awakening from sleep at night patient rates the pain is a 9 on scale 10 is worst over the past week 7 on average 6 its least is a 7 today. Patient reports no new motor or sensory deficits no new bowel or bladder incontinence. Physical Exam: VS: Blood pressure is 123/71 pulse 76 respirations 18 temperature 98.9 F height is 6 inches weight is 166 pounds PE: PHYSICAL EXAMINATION: GENERAL: The patient is awake, alert, oriented, appropriate, very pleasant demeanor HEENT: Shows normocephalic, atraumatic. Extraocular movements are intact and symmetrical. NECK: Shows anterior throat supple without palpable lymphadenopathy noted. Swallow reflex symmetrical. CHEST: Shows normal on inspection. Breath sounds are clear bilaterally, distant but no rales or rhonchi bilaterally. HEART: Shows S1, S2 clear. No murmurs auscultated. ABDOMEN: Soft, nontender, nondistended, obese. No palpable organomegaly is noted. BACK: Shows spine grossly in the midline. Normal-appearing cervical lordotic curvature. There is slightly increased thoracic kyphosis, some minor flattening of the lumbar lordotic curvature. Lumbar paraspinous muscles show symmetrical on inspection, on palpation shows some moderate tenderness diffusely throughout the upper, middle and lower distribution of the paraspinous muscles without specific trigger points, without radiation of pain. The patient has good rotational motion of the lumbar spine, both laterally as well as extension and flexion without significant difficulty. EXTREMITIES: Lower extremities show deep tendon reflexes 1+/4+ bilaterally, in the patellar and tendo calcaneus tendons. Motor exam is 4 on a scale of 5 with right dorsiflexion, extension, quadriceps and hamstring flexion and 4/5 on the left. Peripheral pulses are 1+ posterior tibial. No peripheral edema is noted bilaterally. Lower extremities are warm and dry to touch, equal in color and appearance. SKIN: Shows warm and dry, good turgor. No edema. No sores, rashes or bruising throughout. Procedure: Procedure: Options were discussed with the patient. Patient's chart was reviewed as was his current medication regimen updated current review of systems updated today as well. Patient like to hold on any further injections at this time and we will have him return on as-needed basis currently. Patient was encouraged to maintain stretching strength exercises as well as some walking exercises as best he is able to with his cane. Patient will follow up with his primary physician in the meantime. Medication Injected: Med Injected: None Condition at Discharge: Condition at Discharge: Condition at discharge is stable. FREDERIC KHAN MD Jul 24, 2020 10:56
== END | disposition home or self-care (01) ==
LOC: PNCL 10:15
PROVIDERS: ATTEND Anesthesiology
DX: M51.16 Intervertebral disc disorders with radiculopathy, lumbar region (principal); M48.061 Spinal stenosis, lumbar region without neurogenic claudication; I10 Essential (primary) hypertension; J44.9 Chronic obstructive pulmonary disease, unspecified; I48.91 Unspecified atrial fibrillation; M19.90 Unspecified osteoarthritis, unspecified site; E11.9 Type 2 diabetes mellitus without complications; F41.9 Anxiety disorder, unspecified; F32.9 Major depressive disorder, single episode, unspecified; K21.9 Gastro-esophageal reflux disease without esophagitis; F17.210 Nicotine dependence, cigarettes, uncomplicated; Z79.899 Other long term (current) drug therapy; Z98.890 Other specified postprocedural states; Z72.89 Other problems related to lifestyle
CPT/HCPCS: G0463

== ENCOUNTER → 2020-09-12 | Outpatient (CLI) | payer OTHER ==
--- NOTE | 2020-09-12 10:32 | RAD ---
CT LOW DOSE LUNG SCREEN HISTORY: Lung cancer screening. COMPARISON: CT chest angiography 01/23/2019. TECHNIQUE: Low-dose noncontrast CT scan of the chest. FINDINGS: Aorta and great vessels: Stable ascending aortic ectasia measuring 4.1 cm at the level of the main pu lmonary artery. Mild atherosclerotic calcification. Thyroid: No significant abnormalities. Mediastinum and rafa: Calcified hilar lymph nodes. No enlarged adenopathy. Esophagus: The visualized esophagus is normal. Heart: The heart is normal in size. There is no pericardial effusion. Moderate coronary artery calcif ication. Airways: The visualized tracheobronchial tree is normal. Lungs: Severe emphysematous change. No significant pulmonary nodules. Pleural space: There is no pneumothorax or pleural effusion. Upper abdomen: Limited evaluation of the upper abdomen is unremarkable. Osseous structures and soft tissues: Within normal limits for age. IMPRESSION: 1. Severe emphysema. 2. Moderate coronary artery calcification. 3. Stable ascending aortic ectasia measuring 4.1 cm at the level of the main pulmonary artery. This can be monitored during subsequent lung cancer screening CT. LUNG RADS: Category 1: Negative. Follow up: Continue annual screening with LDCT in 12 months. Exposure: One or more of the following individualized dose reduction techniques were utilized for thi s examination: 1. Automated exposure control 2. Adjustment of the mA and/or kV according to patient size 3. Use of iterative reconstruction technique. Electronically signed by: Jacoby Joe MD (09/12/2020 10:29 AM) [facility]
== END ==
LOC: CT 09:13
PROVIDERS: ATTEND Internal Medicine
DX: Z12.2 Encounter for screening for malignant neoplasm of respiratory organs (principal); J43.9 Emphysema, unspecified; I25.10 Atherosclerotic heart disease of native coronary artery without angina pectoris; I77.819 Aortic ectasia, unspecified site; F17.210 Nicotine dependence, cigarettes, uncomplicated
CPT/HCPCS: 71271

== ENCOUNTER → 2020-10-09 | Outpatient (CLI) | payer OTHER ==
[~2020-10-09] MED LIST changes: +REGADENOSON 0.4 MG/5 ML DISP.SYRIN. IV ONE
--- NOTE | 2020-10-09 13:04 | RAD ---
MR#: [id number] Date of Study: 10/09/2020 Ordering Physician: EMIR MAR, Referring Physician: AMIE DELACRUZ Tech: RT Sobia (Quinn) (N) APPROVED REPORT Test Type: Pharmacological Stress Nurse/Tech: Cheyenne Mckenzie R.N. Test Indications: chest pain Cardiac History: copd, dm, smoker Medications: see ehr Medical History: see ehr Resting ECG: sr, see printout Resting Heart Rate: 54 bpm Resting Blood Pressure: 119/51mmHg Pretest Chest Pain: No chest pain Nurse/Tech Notes lungs cta, heart tones regular Consent: The procedure was explained to the patient in lay terms. Informed consent was witnessed. Jayro eout was entered into [employer]. History and Stress Test performed by AUNG Mandujano Pharm. Details Pharmacologic stress testing was performed using 0.4mg per 5ml of regadenoson given intravenously ove r 7-10 seconds. Stress Symptoms No chest pain or symptoms.Dyspnea POST EXERCISE Reason for Termination: Infusion complete Target HR: No Max HR: 87 bpm Max Blood Pressure: 120/50mmHg Chest Pain: No. Arrhythmia: Yes. pvc noted ST Change: Yes. T waves changes noted with stress dose INTERPRETATION Stress EKG Conclusion: Baseline EKG showed sinus rhythm. Non-diagnostic changes at peak stress. No arrhythmias. Imaging Protocol IMAGE PROTOCOL: Rest Tc-99m/stress Tc-99m 1 day Rest: Stress: Viability: Radiopharm.Tc99m HbrzilktlDc49m Sestamibi Jopl40wYs 33mCi Duration 13min. 13min. Img Date 10/09/2020 10/09/2020 Inj-Img Adwu41liy. 60min. Rest Admin Site:IV - Left AntecubitalAdministrator:AUNG Mandujano Stress Admin Site: IV - Left AntecubitalAdministrator: AUNG Mandujano STRESS DATA End Diast. Vol.125.0mlLVEDV index BSA67.0ml End Syst. Vol.40.0mlLVESV index BSA21.0ml Myocardial Jhmr431.0gEject. Hbgsnjwl24.0% Stress Scores Regional WT1.00Summed WT18.00 Regional WM0.00Summed WM0.00 Study quality was good. Left Ventricular size was Normal at Rest and Stress. Lung uptake was . Left Ventricular ejection fraction is 67%. The rest and stress images show normal perfusion, normal contraction and thickening. LV Perf. Quant 17 Seg. SSS1.00 17 Seg. SRS2.00 17 Seg. SDS0.00 Stress Defect Extent (% LAD)0.00Rest Defect Extent (% LAD)0.00Rev. Defect Extent (% LAD)0.00 Stress Defect Extent (% LCX) 0.00Rest Defect Extent (% LCX)0.00Rev. Defect Extent (% LCX)0.00 Stress Defect Extent (% RCA)0.00Rest Defect Extent (% RCA)12.20Rev. Defect Extent (% RCA)0.00 Stress Defect Extent (% MICA)0.00Rest Defect Extent (% MICA)3.00Rev. Defect Extent (% MICA)0.00 Conclusion 1. Regadenoson cardioisotope stress test did not show any evidence of ischemia or infarct. 2. Normal left ventricular systolic function with ejection fraction calculated at 67%. 3. Low risk for cardiac events. Signed by : Emir Mar, Electronically Approved : 10/09/2020 13:04:20
--- NOTE | 2020-10-09 14:40 | CARD ---
MR#: [id number] Date of Study: 10/09/2020 Ordering Physician: EMIR LEIGH, Referring Physician: EMIR LEIGH, Tech: Gail Ferguson, [facility] APPROVED REPORT EXAM: Two-dimensional and M-mode echocardiogram with Doppler and color Doppler. Other Information Quality : AverageHR: 61bpm Technically limited study due to smoking INDICATION COPD Chest Pain RISK FACTORS Diabetes Smoking 2D DIMENSIONS RVDd4.0 (2.9-3.5cm)Left Atrium(2D)3.1 (1.6-4.0cm) IVSd1.3 (0.7-1.1cm)Aortic Root(2D)3.4 (2.0-3.7cm) LVDd5.4 (3.9-5.9cm)LVOT Diameter2.1 (1.8-2.4cm) PWd1.1 (0.7-1.1cm)LVDs3.9 (2.5-4.0cm) FS (%) 28.0 %SV75.8 ml LVEF(%)53.7 (>50%) Aortic Valve AoV Peak Ortega.127.5cm/sAoV VTI26.3cm AO Peak GR.6.5mmHgLVOT Peak Ortega.74.3cm/s LVOT VTI 15.44cmAO Mean GR.3mmHg KISHORE (VMAX)1.44zw6YFC (VTI)1.98cm2 Mitral Valve MV E Bbvqzjqi70.5cm/sMV A Rcymgjxh21.5cm/s MV FSS670knF/A Ratio1.0 MVA (PHT)1.80cm2 TDI E/Lateral E'4.6E/Medial E'7.7 Pulmonary Valve PV Peak Ackxpinl00.1cm/sPV Peak Grad.3mmHg Tricuspid Valve TR P. Mhixmzdg332tx/sRAP [id number] TR Peak Gr.83qtIbKQXM67myVh Pulmonary Vein S1 Iccjemgx82.5cm/sD2 Hxzplsww98.1cm/s PVa [id number] LEFT VENTRICLE The left ventricle is normal size. There is mild to moderate concentric left ventricular hypertrophy. The left ventricular systolic function is normal. The Ejection Fraction is 55%. There is normal LV s egmental wall motion. Transmitral Doppler flow pattern is Grade II-pseudonormal filling dynamics. RIGHT VENTRICLE The right ventricle is mildly dilated. There is normal right ventricular wall thickness. The right ve ntricular systolic function is normal. ATRIA The left atrium size is normal. The right atrium size is normal. The interatrial septum is intact wit h no evidence for an atrial septal defect or patent foramen ovale as noted on 2-D or Doppler imaging. AORTIC VALVE The aortic valve is normal in structure and function. Doppler and Color Flow revealed trace aortic re gurgitation. There is no significant aortic valvular stenosis. Calculated aortic valve area is 1.49 c m2 with maximum pressure gradient of 8 mmHg and mean pressure gradient of 4 mmHg. MITRAL VALVE The mitral valve is normal in structure and function. There is no evidence of mitral valve prolapse. There is no mitral valve stenosis. Doppler and Color-flow revealed trace mitral regurgitation. TRICUSPID VALVE The tricuspid valve is normal in structure and function. Doppler and Color Flow revealed trace tricus pid regurgitation with an estimated PAP of 26 mmHg. There is no tricuspid valve stenosis. PULMONIC VALVE The pulmonic valve is not well visualized. Doppler and Color Flow revealed trace pulmonic valvular re gurgitation. GREAT VESSELS The aortic root is normal in size. The ascending aorta is normal in size. The IVC is normal in size a nd collapses >50% with inspiration. PERICARDIAL EFFUSION There is no evidence of significant pericardial effusion. Critical Notification Critical Value: No <Conclusion> The left ventricular systolic function is normal. The Ejection Fraction is 55%. There is normal LV segmental wall motion. Transmitral Doppler flow pattern is Grade II-pseudonormal filling dynamics. Trace mitral regurgitation. Trace tricuspid regurgitation with an estimated PAP of 26 mmHg. There is no evidence of significant pericardial effusion. Signed by : Emir Leigh, Electronically Approved : 10/09/2020 14:39:36
== END ==
LOC: NM 07:58
PROVIDERS: ATTEND Internal Medicine Cardiovascular Disease
DX: I51.7 Cardiomegaly (principal); Z87.891 Personal history of nicotine dependence
CPT/HCPCS: 78452; 93017; 93306; A9500; J2785

== ENCOUNTER → 2021-02-25 | Outpatient (CLI) | payer OTHER ==
[~2021-02-25] MED LIST changes: +CYCL10TA19 PO; -CYCL10TA2 PO; -DOXY100C2 PO; +DOXY100C3 PO; -REGADENOSON 0.4 MG/5 ML DISP.SYRIN. IV ONE
--- NOTE | 2021-02-25 11:56 | RAD ---
EXAM: Cervical spine, 3 views. HISTORY: Muscle spasm. COMPARISON: None. FINDINGS: 3 views of the cervical spine are obtained. There is minimal anterolisthesis of C3 on C4. T here is degenerative endplate remodeling and anterior spurring primarily at the mid lower cervical le vels. There is multilevel facet arthropathy. There is no fracture. There is incidental calcified athe rosclerotic plaque involving the carotid bifurcations. IMPRESSION: Multiple level degenerative change, primarily at the mid lower cervical levels. No acute osseous finding. Electronically signed by: Randi Wilkerson MD (02/25/2021 11:54 AM) [id number]
== END ==
LOC: RAD 11:14
PROVIDERS: ATTEND Internal Medicine
DX: M47.812 Spondylosis without myelopathy or radiculopathy, cervical region (principal); M43.12 Spondylolisthesis, cervical region; M62.838 Other muscle spasm
CPT/HCPCS: 72040